=== PATIENT | male | born 1975 | race Caucasian/White ===

== ENCOUNTER 2019-10-05 01:05 | Emergency (ER) | payer OTHER ==
[2019-10-05 02:37] VITALS: BP 142/93; PULSE 100; TEMP 98.4; BMI 27.6
--- NOTE | 2019-10-05 03:43 | PDOC ---
*Physical Exam - Vital Signs Last Vital Signs Temp Pulse Resp BP Pulse Ox 98.4 F 100 H 18 142/93 97 10/05/19 01:05 10/05/19 01:05 10/05/19 01:05 10/05/19 01:05 10/05/19 01:05 Medical Decision Making - Medical Decision Making 10/05/19 03:43Patient seen by the advanced practice provider under my direct supervision. Ancillary testing reviewed as necessary. I agree with plan as outlined by the advanced practice provider. . Discharge - Discharge Information Problems reviewed: Yes Clinical Impression/Diagnosis: Folliculitis Condition: Fair Disposition: HOME - Additional Discharge Information Prescriptions: Mupirocin Ointment [Bactroban] 1 applic TP BID #1 tube - Follow up/Referral - Patient Discharge Instructions Additional Instructions: Apply warm compress to the area 4-5 times daily. Apply Bactroban to the area it is very important that you follow-up with your primary doctor in 2 days for wound check. Return to the emergency room if the wound is spreading over, streaking or worsening symptoms - Post Discharge Activity Work/Back to School Note: Back to Work
--- NOTE | 2019-10-05 03:48 | PDOC ---
History of Present Illness - General Chief Complaint: Rash Stated Complaint: RASH Time Seen by Provider: 10/05/19 03:15 History Source: Patient - History of Present Illness Initial Comments: 10/05/19 03:51 43 year old male with history of IDDM and substance abuse c/o of redness to right posterior ear erythema x 3 month. " need you to stick a needle in it." denies fever /chills. Patient with slurred speech and sleepy, . denies drug use. patient reports that he was seen by PCP for this and was referred to dermatology Past History - Past Medical History Allergies/Adverse Reactions: Allergies Allergy/AdvReac Type Severity Reaction Status Date / Time No Known Allergies Allergy Verified 10/05/19 02:37 Home Medications: Ambulatory Orders Aspirin [ASA -] 81 mg PO DAILY 07/11/15 Insulin (Novolog 70/30) [Novolog Mix 70/30 Vial] 0 ml SQ BID 07/11/15 Insulin Glargine,Hum.rec.anlog [Lantus (nf)] 40 units SQ AM 07/11/15 Lisinopril [Prinivil -] 10 mg PO DAILY 07/11/15 Mupirocin Ointment [Bactroban] 1 applic TP BID #1 tube 10/05/19 Asthma: Yes Diabetes: Yes (INSULIN DEPENDENT) HTN: Yes - Immunization History Immunization Up to Date: Yes - Psycho Social/Smoking Cessation Hx Smoking Status: No Smoking History: Current some day smoker Have you smoked in the past 12 months: Yes Number of Cigarettes Smoked Daily: 10 Information on smoking cessation initiated: No Hx Alcohol Use: No Drug/Substance Use Hx: No Substance Use Type: None Review of Systems - Review of Systems Able to Perform ROS?: Yes Is the patient limited Danish proficient: No Integumentary: Yes: Erythema *Physical Exam - Vital Signs Last Vital Signs Temp Pulse Resp BP Pulse Ox 98.4 F 100 H 18 142/93 97 10/05/19 01:05 10/05/19 01:05 10/05/19 01:05 10/05/19 01:05 10/05/19 01:05 - Physical Exam General Appearance: Yes: Appropriately Dressed HEENT: positive: Other (right posterior ear bead sized redness no fluctuant mass , mild erythema no streaking) ED Progress Note - Progress Note Progress Note: 10/05/19 03:56 A: folliculitis? P: warm compress bactroban follow up in 2 day for a wound check with pcp Discharge - Discharge Information Problems reviewed: Yes Clinical Impression/Diagnosis: Folliculitis Condition: Fair Disposition: HOME - Additional Discharge Information Prescriptions: Mupirocin Ointment [Bactroban] 1 applic TP BID #1 tube - Follow up/Referral - Patient Discharge Instructions Additional Instructions: Apply warm compress to the area 4-5 times daily. Apply Bactroban to the area it is very important that you follow-up with your primary doctor in 2 days for wound check. Return to the emergency room if the wound is spreading over, streaking or worsening symptoms - Post Discharge Activity Work/Back to School Note: Back to Work
== END 2019-10-05 04:53 | disposition home or self-care (01) ==
LOC: JER 01:05
DX: L73.8 Other specified follicular disorders (principal); I10 Essential (primary) hypertension; E10.9 Type 1 diabetes mellitus without complications; Z79.4 Long term (current) use of insulin; Z87.09 Personal history of other diseases of the respiratory system; F17.210 Nicotine dependence, cigarettes, uncomplicated
CPT/HCPCS: 99282-25

== ENCOUNTER 2021-04-29 15:14 | Inpatient (IN) | payer OTHER ==
[2021-04-29] MEDS ORDERED: SODIUM CHLORIDE 1,000 ML IV STA ×3 (15:36→17:45)
[2021-04-29] MEDS ORDERED: ONDANSETRON 4 MG/2 ML VIAL IVPUSH ONE (15:42)
[2021-04-29] MEDS ORDERED: PANTOPRAZOLE SODIUM 40 MG VIAL IVPUSH ONE (15:43)
[2021-04-29] MEDS ORDERED: PANTOPRAZOLE SODIUM 40 MG VIAL ONE (16:11)
[2021-04-29] MEDS ORDERED: ONDANSETRON 4 MG/2 ML VIAL ONE (16:11)
[2021-04-29 16:26] LABS: VENOUS O2 SATURATION 75.8 % (70-80)
[2021-04-29 16:27] LABS: MCH 23.8 pg (25.7-33.7); MCHC 31.2 g/dl (32.0-35.9); MEAN CELL VOLUME 76.2 fl (80-96); MEAN PLT VOLUME 7.7 fl (7.5-11.1); PLATELET COUNT 394 10^3/uL (134-434); RBC 5.91 M/mm3 (4.00-5.60); RDW 16.1 % (11.9-15.9); WHITE BLOOD COUNT 20.9 K/mm3 (4.0-10.0)
[2021-04-29 16:33] LABS: VENOUS PH 7.025 (7.310-7.410)
[2021-04-29 16:37] LABS: INR 0.91 (0.83-1.09)
[2021-04-29 16:39] LABS: ACTIVATED PTT 24.2 SECONDS (25.2-36.5)
[2021-04-29 16:45] LABS: CHLORIDE 83 mmol/L (98-107); SODIUM 125 mmol/L (136-145)
[2021-04-29] MEDS ORDERED: INSULIN REGULAR 100 UNITS in SODIUM CHLORIDE 99 ML IVPB SCH ×2 (16:45→23:31)
[2021-04-29 16:47] LABS: CALCIUM 8.9 mg/dL (8.5-10.1)
[2021-04-29 16:48] LABS: ALBUMIN 4.2 g/dl (3.4-5.0); BLOOD UREA NITROGEN 43.7 mg/dL (7-18); CO2 5 mmol/L (21-32)
[2021-04-29 16:51] LABS: CREATININE 2.6 mg/dL (0.55-1.3); SGOT/AST 21 U/L (15-37); SGPT/ALT 53 U/L (13-61)
[2021-04-29 16:52] LABS: TOT PROT 8.3 g/dl (6.4-8.2)
[2021-04-29 16:54] LABS: ALK PHOS 138 U/L (45-117)
[2021-04-29] MEDS ORDERED: PIPERACILLIN/TAZOB 3.375 GM 3.375 GM in DEXTROSE 5%-WATER - 50 ML IVPB ONE (17:02)
[2021-04-29] MEDS ORDERED: VANCOMYCIN 1 GM in D5W (PRE-DOCKED) 1,000 MG/250 ML IVPB ONE (17:02)
[2021-04-29 17:05] LABS: ANION GAP 37 MMOL/L (8-16); GLUCOSE,RANDOM 708 mg/dL (74-106)
[2021-04-29 17:17] LABS: ANISOCYTOSIS 0; HELMET CELLS 0; HOWELL-JOLLY BODIES 0; MACROCYTOSIS 0; OVALOCYTE 0; PLATELET ESTIMATE NORMAL; ROULEAU 0; SICKELED CELLS 0; TARGET CELLS 0; TEAR DROP CELLS 0; TOXIC GRANULATION 0
[2021-04-29] MEDS ORDERED: VANCOMYCIN 1 GRAM (PRE-DOCKED) 1,000 MG/250 ML BAG IVPB ONE (17:26)
[2021-04-29] MEDS ORDERED: PIPERACILLIN/TAZOB 3.375 GM 3.375 GM/50 ML BAG IVPB ONE (17:26)
[2021-04-29] MEDS ORDERED: TRIMETHOBENZAMIDE HCL 200MG/2ML INJ IM PRN (17:49)
[2021-04-29] MEDS ORDERED: ACETAMINOPHEN 1000 MG/100 ML VIAL (NON FORMULARY) IVPB PRN (17:49)
[2021-04-29] MEDS ORDERED: SODIUM BICARBONATE 8.4% 50 MEQ/50 ML DISP.SYRIN IVPUSH ONE (17:50)
[2021-04-29 17:53] LABS: EPI CELLS 1 /uL (0-25.1); HYALINE CASTS 1 /uL (0-3.1); URINE APPEARANCE CLEAR; URINE BACTERIA 1 /uL (0-1359); URINE BILIRUBIN NEGATIVE (NEGATIVE); URINE COLOR YELLOW; URINE GLUCOSE (UA) 3+ (NEGATIVE); URINE KETONE 4+ (NEGATIVE); URINE LEUK ESTERASE NEGATIVE (NEGATIVE); URINE NITRITE NEGATIVE (NEGATIVE); URINE PROTEIN 1+ (NEGATIVE); URINE RBC 6 /uL (0-23.9); URINE UROBILINOGEN 0.2 mg/dL (0.2-1.0); URINE WBC 1 /uL (0-25.8)
[2021-04-29] MEDS: HEPARIN NA (PORCINE) 5,000 UNITS/ML 1ML VIAL SQ SCH ×2 (18:18→21:41)
[2021-04-29] MEDS ORDERED: SODIUM BICARBONATE 8.4% - 50 ML ONE (18:18)
[2021-04-29] MEDS ORDERED: HEPARIN NA (PORCINE) 5,000 UNITS/ML 1ML VIAL ONE (18:18)
[2021-04-29] MEDS ORDERED: ALBUTEROL SO4 0.083% IH SOL 2.5 MG/3 ML VIAL.NEB. NEB PRN (19:55)
[2021-04-29 19:57] LABS: CHLORIDE 86 mmol/L (98-107); SODIUM 126 mmol/L (136-145)
[2021-04-29 20:00] LABS: ANION GAP 33 MMOL/L (8-16); CALCIUM 8.3 mg/dL (8.5-10.1); CO2 8 mmol/L (21-32); MAGNESIUM 2.4 mg/dL (1.8-2.4)
[2021-04-29 20:01] LABS: BLOOD UREA NITROGEN 41.7 mg/dL (7-18)
[2021-04-29 20:04] LABS: CREATININE 2.3 mg/dL (0.55-1.3); PHOSPHOROUS 6.6 mg/dL (2.5-4.9)
[2021-04-29 20:06] LABS: COCAINE, UR NEGATIVE (NEGATIVE); METHADONE, UR NEGATIVE (NEGATIVE); OPIATES, URI NEGATIVE (NEGATIVE); URINE BARBITURATES NEGATIVE (NEGATIVE)
[2021-04-29] MEDS ORDERED: SODIUM CHLORIDE 0.9%/KCL 20 MEQ/1,000 ML INFUS.BAG IV SCH ×2 (20:15→20:22)
[2021-04-29 20:21] LABS: PHENCYCLIDINE,URINE POSITIVE (NEGATIVE); URINE AMPHETAMINES NEGATIVE (NEGATIVE); URINE BENZODIAZEPINES NEGATIVE (NEGATIVE)
[2021-04-29 20:21] LABS: GLUCOSE,RANDOM 555 mg/dL (74-106); LACTIC ACID 4.5 mmol/L (0.4-2.0)
[2021-04-29] MEDS ORDERED: SODIUM CHLORIDE IV SCH (21:22)
[2021-04-29] MEDS ORDERED: INFUS IV SCH (21:22)
[2021-04-29] MEDS ORDERED: POTASSIUM CHLORIDE IV SCH (21:22)
[2021-04-29] MEDS: CHLORHEXIDINE GLUCONATE 4% CLEANSER FOR DECOLONIZATION TP SCH (21:42)
[2021-04-29 21:57] VITALS: BMI 24.3
[2021-04-29 22:40] LABS: VENOUS BASE EXCESS -9.3 mmol/L (-2-2); VENOUS O2 SATURATION 62.2 % (70-80); VENOUS PCO2 30.4 mmHg (38-52); VENOUS PH 7.322 (7.310-7.410)
[2021-04-29] MEDS: MUPIROCIN 2% TOPICAL OINTMENT FOR DECOLONIZATION NS SCH (22:41)
[2021-04-29 23:27] LABS: BLOOD UREA NITROGEN 35.9 mg/dL (7-18); CALCIUM 7.9 mg/dL (8.5-10.1)
[2021-04-29 23:28] LABS: CREATININE 1.9 mg/dL (0.55-1.3)
[2021-04-29] MEDS ORDERED: D5-NS + 20 MEQ KCL - 20 MEQ/1,000 ML INFUS.BAG IV SCH (23:30)
[2021-04-30 01:43] LABS: CALCIUM 7.6 mg/dL (8.5-10.1)
[2021-04-30 01:44] LABS: BLOOD UREA NITROGEN 31.4 mg/dL (7-18)
[2021-04-30 01:47] LABS: CREATININE 1.7 mg/dL (0.55-1.3)
[2021-04-30] MEDS ORDERED: D5-NS + 20 MEQ KCL - 20 MEQ/1,000 ML INFUS.BAG IV SCH (03:58)
[2021-04-30] MEDS ORDERED: D5-1/2NS+20 MEQ KCL - 20 MEQ/1,000 ML INFUS.BAG IV SCH (04:45)
[2021-04-30] MEDS ORDERED: FAMOTIDINE 20 MG TABLET PO ONE (05:27)
[2021-04-30] MEDS: HEPARIN NA (PORCINE) 5,000 UNITS/ML 1ML VIAL SQ SCH ×3 (06:00→21:43)
[2021-04-30] MEDS ORDERED: INSULIN REGULAR 100 UNITS in SODIUM CHLORIDE 99 ML IVPB SCH (06:05)
[2021-04-30 06:15] LABS: CALCIUM 8.2 mg/dL (8.5-10.1)
[2021-04-30 06:16] LABS: BLOOD UREA NITROGEN 25.3 mg/dL (7-18)
[2021-04-30 06:19] LABS: CREATININE 1.8 mg/dL (0.55-1.3)
[2021-04-30] MEDS ORDERED: FAMOTIDINE 20 MG/50 ML IVPB 20 MG/50 ML MG IVPB ONE (09:15)
[2021-04-30 11:30] LABS: BASO % 0.4 % (0-2.0); HEMATOCRIT 38.2 % (35.4-49); HEMOGLOBIN 12.5 GM/dL (11.7-16.9); MCHC 32.8 g/dl (32.0-35.9); MEAN CELL VOLUME 73.4 fl (80-96); MONO % 7.9 % (3.8-10.2); NEUT % 82.7 % (42.8-82.8); PLATELET COUNT 254 10^3/uL (134-434); RDW 15.7 % (11.9-15.9); WHITE BLOOD COUNT 13.7 K/mm3 (4.0-10.0)
[2021-04-30] MEDS: D5-1/2NS+20 MEQ KCL - 20 MEQ/1,000 ML INFUS.BAG IV SCH (11:30)
[2021-04-30 11:48] LABS: MAGNESIUM 2.2 mg/dL (1.8-2.4)
[2021-04-30 11:52] LABS: IRON SERUM 146 ug/dL (50-175); PHOSPHOROUS 1.4 mg/dL (2.5-4.9)
[2021-04-30] MEDS: INSULIN (LEVEMIR) 100 UNITS/ML UNITS SQ SCH ×2 (11:58→21:43)
[2021-04-30] MEDS: MUPIROCIN 2% TOPICAL OINTMENT FOR DECOLONIZATION NS SCH ×2 (11:58→21:12)
[2021-04-30] MEDS: INSULIN SLIDING SCALE (NOVOLOG) 1 VIAL SQ SCH ×2 (11:59→17:45)
[2021-04-30 13:29] LABS: ANION GAP QNS MMOL/L (8-16); BLOOD UREA NITROGEN QNS mg/dL (7-18); CALCIUM QNS mg/dL (8.5-10.1); CHLORIDE QNS mmol/L (98-107); CO2 QNS mmol/L (21-32); CREATININE QNS mg/dL (0.55-1.3); GLUCOSE,RANDOM QNS mg/dL (74-106); SODIUM QNS mmol/L (136-145); TOTAL IRON BINDING CAPACITY QNS ug/dL (250-450)
[2021-04-30 13:30] LABS: CHOLESTEROL QNS mg/dL (50-200); HDL CHOLESTEROL QNS mg/dL (40-60); LDL CHOLESTEROL (ONLY SJRH) QNS mg/dL (5-100); TRIGLYCERIDES QNS mg/dL (0-150)
[2021-04-30] MEDS ORDERED: CALCIUM GLUCONATE 10% - 1,000 MG/10 ML VIAL IVPUSH ONE (15:00)
[2021-04-30] MEDS ORDERED: SODIUM PHOSPHATE - 30 MM in DEXTROSE 5%-WATER - 500 ML IVPB ONE (16:00)
[2021-04-30 18:57] LABS: BLOOD UREA NITROGEN 15.6 mg/dL (7-18); CALCIUM 8.2 mg/dL (8.5-10.1)
[2021-04-30 19:00] LABS: CREATININE 1.2 mg/dL (0.55-1.3)
[2021-04-30] MEDS ORDERED: PT OWN MED DRAWER 7, Y5N ONE (20:58)
[2021-04-30] MEDS: GABAPENTIN 300 MG CAPSULE PO SCH (21:42)
[2021-04-30] MEDS: MIRTAZAPINE 15 MG TABLET (FP) PO SCH (21:42)
[2021-04-30] MEDS: CHLORHEXIDINE GLUCONATE 4% CLEANSER FOR DECOLONIZATION TP SCH (21:43)
[2021-05-01] MEDS ORDERED: DEXTROSE 50%-WATER 25 GM/50 ML DISP.SYRIN ONE (05:55)
[2021-05-01] MEDS: GABAPENTIN 300 MG CAPSULE PO SCH ×3 (06:11→21:01)
[2021-05-01] MEDS: HEPARIN NA (PORCINE) 5,000 UNITS/ML 1ML VIAL SQ SCH ×3 (06:11→21:00)
[2021-05-01] MEDS: INSULIN SLIDING SCALE (NOVOLOG) 1 VIAL SQ SCH ×3 (06:12→17:30)
[2021-05-01] MEDS: INSULIN (LEVEMIR) 100 UNITS/ML UNITS SQ SCH (06:12)
[2021-05-01] MEDS ORDERED: DEXTROSE 50%-WATER - 25 GM/50 ML VIAL IVPUSH ONE (06:35)
[2021-05-01 07:36] LABS: BASO % 0.5 % (0-2.0); EOS % 0.1 % (0-4.5); HEMATOCRIT 36.1 % (35.4-49); LYMPH % 17.3 % (8-40); MCHC 33.3 g/dl (32.0-35.9); MEAN CELL VOLUME 72.1 fl (80-96); MEAN PLT VOLUME 7.3 fl (7.5-11.1); MONO % 7.8 % (3.8-10.2); NEUT % 74.3 % (42.8-82.8); PLATELET COUNT 226 10^3/uL (134-434); RBC 5.01 M/mm3 (4.00-5.60); RDW 15.6 % (11.9-15.9); WHITE BLOOD COUNT 8.8 K/mm3 (4.0-10.0)
[2021-05-01 07:44] LABS: CHLORIDE 108 mmol/L (98-107); SODIUM 143 mmol/L (136-145)
[2021-05-01 07:47] LABS: CALCIUM 8.4 mg/dL (8.5-10.1)
[2021-05-01 07:48] LABS: ANION GAP 8 MMOL/L (8-16); BLOOD UREA NITROGEN 10.9 mg/dL (7-18); CO2 28 mmol/L (21-32); MAGNESIUM 2.2 mg/dL (1.8-2.4)
[2021-05-01 07:51] LABS: GLUCOSE,RANDOM 24 mg/dL (74-106)
[2021-05-01] MEDS ORDERED: POTASSIUM CHLORIDE ORAL LIQUID 20 MEQ/15 ML PO ONE (08:41)
[2021-05-01] MEDS ORDERED: NAPH,MB-DB/K PH,MBDB POWDER PACKET PO ONE (09:30)
[2021-05-01] MEDS ORDERED: POTASSIUM PHOSPHATE 30 MM in DEXTROSE 5%-WATER - 500 ML IVPB ONE (10:00)
[2021-05-01] MEDS: LOSARTAN POTASSIUM 50 MG TABLET PO SCH (10:25)
[2021-05-01] MEDS: QUEtiapine FUMARATE 100 MG TABLET (FP) PO SCH (10:25)
[2021-05-01] MEDS: MUPIROCIN 2% TOPICAL OINTMENT FOR DECOLONIZATION NS SCH ×2 (10:44→21:01)
[2021-05-01] MEDS: D5-1/2NS+20 MEQ KCL - 20 MEQ/1,000 ML INFUS.BAG IV SCH (11:54)
[2021-05-01] MEDS: LABETALOL HCL 5 MG/1 ML (100MG/20 ML VIAL) IVPUSH PRN (18:49)
[2021-05-01] MEDS: PANTOPRAZOLE 40 MG TABLET PO SCH (18:49)
[2021-05-01] MEDS ORDERED: INSULIN (NOVOLOG) ASPART 100 UNITS/ML 10ML VIAL SQ ONE (20:29)
[2021-05-01 20:42] LABS: BLOOD UREA NITROGEN 11.4 mg/dL (7-18); CALCIUM 9.5 mg/dL (8.5-10.1)
[2021-05-01] MEDS: CHLORHEXIDINE GLUCONATE 4% CLEANSER FOR DECOLONIZATION TP SCH (21:01)
[2021-05-01] MEDS: MIRTAZAPINE 15 MG TABLET (FP) PO SCH (21:01)
[2021-05-02] MEDS ORDERED: MAG HYDROX/AL HYDROX/SIMETH -MYLANTA- ORAL SUSPENSION PO SCH
[2021-05-02] MEDS ORDERED: INSULIN (LEVEMIR) 100 UNITS/ML UNITS SQ ONE (00:14)
[2021-05-02] MEDS: MAG HYDROX/AL HYDROX/SIMETH 30 ML UNIT-DOSE CUP PO SCH ×4 (00:22→21:38)
[2021-05-02] MEDS: INSULIN SLIDING SCALE (NOVOLOG) 1 VIAL SQ SCH ×4 (03:38→18:05)
[2021-05-02] MEDS: INSULIN (LEVEMIR) 100 UNITS/ML UNITS SQ SCH ×2 (04:16→06:33)
[2021-05-02] MEDS: LABETALOL HCL 5 MG/1 ML (100MG/20 ML VIAL) IVPUSH PRN ×2 (04:36→21:47)
[2021-05-02] MEDS: HEPARIN NA (PORCINE) 5,000 UNITS/ML 1ML VIAL SQ SCH ×3 (06:33→21:46)
[2021-05-02] MEDS: GABAPENTIN 300 MG CAPSULE PO SCH ×3 (06:33→21:46)
[2021-05-02] MEDS ORDERED: hydrALAZINE HCL 20 MG/ML VIAL IVPUSH PRN (06:57)
[2021-05-02 07:07] LABS: BASO % 0.5 % (0-2.0); EOS % 0.1 % (0-4.5); HEMOGLOBIN 11.1 GM/dL (11.7-16.9); LYMPH % 28.4 % (8-40); MCH 23.9 pg (25.7-33.7); MCHC 32.7 g/dl (32.0-35.9); MEAN CELL VOLUME 73.1 fl (80-96); MEAN PLT VOLUME 7.5 fl (7.5-11.1); MONO % 6.8 % (3.8-10.2); NEUT % 64.2 % (42.8-82.8); PLATELET COUNT 197 10^3/uL (134-434); RBC 4.65 M/mm3 (4.00-5.60); RDW 15.8 % (11.9-15.9); WHITE BLOOD COUNT 5.9 K/mm3 (4.0-10.0)
[2021-05-02 07:24] LABS: BLOOD UREA NITROGEN 14.7 mg/dL (7-18); CALCIUM 8.7 mg/dL (8.5-10.1)
[2021-05-02 07:27] LABS: CREATININE 1.2 mg/dL (0.55-1.3)
[2021-05-02 07:29] LABS: BILIRUBIN,TOTAL 0.5 mg/dL (0.2-1)
[2021-05-02 07:46] LABS: ALBUMIN 2.9 g/dl (3.4-5.0); TOT PROT 5.9 g/dl (6.4-8.2)
[2021-05-02] MEDS: hydrALAZINE HCL 25 MG TABLET (FP) PO SCH ×2 (10:00→21:46)
[2021-05-02] MEDS ORDERED: PT OWN MED DRAWER 7, Y5N ONE (10:19)
[2021-05-02] MEDS: LABETALOL HCL 100 MG TABLET (FP) PO SCH (11:12)
[2021-05-02] MEDS: LOSARTAN POTASSIUM 50 MG TABLET PO SCH (11:12)
[2021-05-02] MEDS: MUPIROCIN 2% TOPICAL OINTMENT FOR DECOLONIZATION NS SCH ×2 (11:12→21:46)
[2021-05-02] MEDS: PANTOPRAZOLE 40 MG TABLET PO SCH (11:13)
[2021-05-02] MEDS: QUEtiapine FUMARATE 100 MG TABLET (FP) PO SCH (11:13)
[2021-05-02] MEDS: CHLORHEXIDINE GLUCONATE 4% CLEANSER FOR DECOLONIZATION TP SCH (21:46)
[2021-05-02] MEDS: MIRTAZAPINE 15 MG TABLET (FP) PO SCH (21:46)
[2021-05-03] MEDS: LABETALOL HCL 100 MG TABLET (FP) PO SCH ×2 (01:31→11:04)
[2021-05-03] MEDS: MAG HYDROX/AL HYDROX/SIMETH 30 ML UNIT-DOSE CUP PO SCH ×4 (01:33→17:49)
[2021-05-03] MEDS: HEPARIN NA (PORCINE) 5,000 UNITS/ML 1ML VIAL SQ SCH ×2 (05:43→13:57)
[2021-05-03] MEDS: GABAPENTIN 300 MG CAPSULE PO SCH ×2 (05:43→13:57)
[2021-05-03] MEDS: INSULIN SLIDING SCALE (NOVOLOG) 1 VIAL SQ SCH ×3 (06:02→16:22)
[2021-05-03] MEDS: INSULIN (LEVEMIR) 100 UNITS/ML UNITS SQ SCH (06:02)
[2021-05-03] MEDS ORDERED: MAG HYDROX/AL HYDROX/SIMETH 30 ML UNIT-DOSE CUP PO ONE (09:13)
[2021-05-03] MEDS ORDERED: FAMOTIDINE 20 MG TABLET PO ONE (09:13)
[2021-05-03] MEDS: QUEtiapine FUMARATE 100 MG TABLET (FP) PO SCH (11:00)
[2021-05-03] MEDS: hydrALAZINE HCL 25 MG TABLET (FP) PO SCH (11:00)
[2021-05-03] MEDS: PANTOPRAZOLE 40 MG TABLET PO SCH (11:00)
[2021-05-03] MEDS: LOSARTAN POTASSIUM 50 MG TABLET PO SCH (11:04)
[2021-05-03 11:31] LABS: ALBUMIN 2.9 g/dl (3.4-5.0); BLOOD UREA NITROGEN 19.4 mg/dL (7-18); CALCIUM 8.6 mg/dL (8.5-10.1)
[2021-05-03 11:32] LABS: MAGNESIUM 2.3 mg/dL (1.8-2.4)
[2021-05-03 11:34] LABS: CREATININE 1.2 mg/dL (0.55-1.3)
[2021-05-03 11:36] LABS: BILIRUBIN,TOTAL 0.3 mg/dL (0.2-1)
[2021-05-03 12:21] VITALS: BP 131/90; PULSE 94
[2021-05-03] MEDS: MUPIROCIN 2% TOPICAL OINTMENT FOR DECOLONIZATION NS SCH (12:37)
[2021-05-03 17:50] VITALS: TEMP 99.5
== END 2021-05-03 18:55 | disposition home or self-care (01) | DRG 420 ==
LOC: JER 15:14 → JERBED 17:54 → JICU 21:43
PROVIDERS: ADMIT Internal Medicine; ATTEND Internal Medicine
DX: E10.10 Type 1 diabetes mellitus with ketoacidosis without coma (principal); I10 Essential (primary) hypertension; E03.9 Hypothyroidism, unspecified; N17.9 Acute kidney failure, unspecified; E87.5 Hyperkalemia; D72.829 Elevated white blood cell count, unspecified; R10.13 Epigastric pain; R11.2 Nausea with vomiting, unspecified; R80.9 Proteinuria, unspecified; L73.9 Follicular disorder, unspecified; E87.1 Hypo-osmolality and hyponatremia; E10.65 Type 1 diabetes mellitus with hyperglycemia; R35.0 Frequency of micturition; Z79.4 Long term (current) use of insulin
CPT/HCPCS: 36415; 71045-TC-FY; 80048; 80053; 80061; 80307; 81003; 82010; 82436; 82550; 82570; 82803; 82962; 83540; 83605; 83690; 83735; 83930; 84100; 84133; 84300; 84443; 84484; 85025; 85610; 85730; 86850; 86900; 86901; 87040; 87086; 93005; 93010; 93306-TC; 97116-GP; 97161-GP; 99291; C9803; J1644; U0003; U0005

== ENCOUNTER 2021-07-12 11:58 | Inpatient (IN) | payer OTHER ==
[2021-07-12] MEDS ORDERED: SODIUM CHLORIDE 0.9% 500 ML INFUS.BAG IV ONE ×2 (12:43→13:20)
[2021-07-12 12:45] LABS: VENOUS BASE EXCESS -14.4 mmol/L (-2-2); VENOUS O2 SATURATION 60.2 % (70-80); VENOUS PCO2 35.7 mmHg (38-52)
[2021-07-12 12:47] LABS: BASO % 0.7 % (0-2.0); EOS % 0.9 % (0-4.5); HEMATOCRIT 42.8 % (35.4-49); HEMOGLOBIN 13.5 GM/dL (11.7-16.9); LYMPH % 15.9 % (8-40); MCH 23.7 pg (25.7-33.7); MCHC 31.6 g/dl (32.0-35.9); MEAN CELL VOLUME 74.9 fl (80-96); MEAN PLT VOLUME 8.3 fl (7.5-11.1); MONO % 6.7 % (3.8-10.2); NEUT % 75.8 % (42.8-82.8); PLATELET COUNT 295 10^3/uL (134-434); RBC 5.72 M/mm3 (4.00-5.60); RDW 14.9 % (11.9-15.9); VENOUS PH 7.179 (7.310-7.410); WHITE BLOOD COUNT 10.9 K/mm3 (4.0-10.0)
[2021-07-12 12:48] LABS: URINE APPEARANCE CLEAR; URINE BILIRUBIN NEGATIVE (NEGATIVE); URINE COLOR YELLOW; URINE GLUCOSE (UA) 3+ (NEGATIVE); URINE KETONE 4+ (NEGATIVE); URINE LEUK ESTERASE NEGATIVE (NEGATIVE); URINE NITRITE NEGATIVE (NEGATIVE); URINE PROTEIN NEGATIVE (NEGATIVE); URINE UROBILINOGEN 0.2 mg/dL (0.2-1.0)
[2021-07-12] MEDS ORDERED: ONDANSETRON 4 MG/2 ML VIAL IVPB ONE (13:00)
[2021-07-12 13:03] LABS: URINE BARBITURATES NEGATIVE (NEGATIVE)
[2021-07-12 13:04] LABS: COCAINE, UR NEGATIVE (NEGATIVE); METHADONE, UR NEGATIVE (NEGATIVE); OPIATES, URI NEGATIVE (NEGATIVE); PHENCYCLIDINE,URINE POSITIVE (NEGATIVE); URINE AMPHETAMINES NEGATIVE (NEGATIVE); URINE BENZODIAZEPINES NEGATIVE (NEGATIVE)
[2021-07-12] MEDS ORDERED: ONDANSETRON 4 MG/2 ML VIAL ONE ×2 (13:06→14:37)
[2021-07-12 13:09] LABS: CHLORIDE 91 mmol/L (98-107); SODIUM 130 mmol/L (136-145)
[2021-07-12 13:11] LABS: ALBUMIN 4.3 g/dl (3.4-5.0); ANION GAP 25 MMOL/L (8-16); CALCIUM 10.8 mg/dL (8.5-10.1); CO2 14 mmol/L (21-32)
[2021-07-12 13:12] LABS: LIPASE 99 U/L (73-393)
[2021-07-12 13:13] LABS: PHOSPHOROUS 5.2 mg/dL (2.5-4.9); SGOT/AST 15 U/L (15-37); SGPT/ALT 32 U/L (13-61)
[2021-07-12 13:15] LABS: BILIRUBIN,TOTAL 1.1 mg/dL (0.2-1); TOT PROT 8.4 g/dl (6.4-8.2)
[2021-07-12] MEDS ORDERED: INSULIN REGULAR HUMAN 100 UNITS/ML *VIAL ONE (13:15)
[2021-07-12 13:16] LABS: ALK PHOS 167 U/L (45-117); GLUCOSE,RANDOM 730 mg/dL (74-106)
[2021-07-12] MEDS ORDERED: INSULIN REGULAR HUMAN 100 UNITS/ML *VIAL IVPUSH ONE (13:22)
[2021-07-12] MEDS ORDERED: INSULIN DRIP - PLEASE ORDER UNDER SETS NR ONE (13:23)
[2021-07-12 14:21] LABS: MAGNESIUM 2.5 mg/dL (1.8-2.4)
[2021-07-12] MEDS ORDERED: LORazepam 2 MG/ML SDV VIAL IVPUSH ONE ×2 (14:23→17:21)
[2021-07-12] MEDS ORDERED: ONDANSETRON 4 MG/2 ML VIAL IVPUSH ONE (14:24)
[2021-07-12] MEDS ORDERED: LORazepam 2 MG/ML SDV VIAL ONE (14:37)
[2021-07-12] MEDS ORDERED: ENOXAPARIN NA (PORCINE) 40 MG/0.4 ML DISP.SYRIN SQ SCH (14:45)
[2021-07-12] MEDS ORDERED: INSULIN REGULAR 100 UNITS in SODIUM CHLORIDE 99 ML IVPB SCH (15:00)
[2021-07-12] MEDS ORDERED: SODIUM CHLORIDE 1,000 ML IV SCH ×2 (15:15→22:45)
[2021-07-12] MEDS ORDERED: POTASSIUM CHLORIDE 20 MEQ PREMIX IVPB 100 ML IVPB ONE (15:19)
[2021-07-12] MEDS ORDERED: ALBUTEROL SO4 HFA INHALER IH PRN (16:00)
[2021-07-12 17:48] VITALS: BMI 25.5
[2021-07-12 18:08] LABS: BLOOD UREA NITROGEN 19.7 mg/dL (7-18)
[2021-07-12 18:11] LABS: CREATININE 1.6 mg/dL (0.55-1.3)
[2021-07-12] MEDS: KCL 10 MEQ IVPB 10 MEQ/100 ML INFUS.BAG IVPB SCH ×2 (18:26→21:20)
[2021-07-12] MEDS ORDERED: DEXTROSE 5%-NORMAL SALINE 1,000 ML IV SCH (18:30)
[2021-07-12] MEDS: MUPIROCIN 2% TOPICAL OINTMENT FOR DECOLONIZATION NS SCH (21:20)
[2021-07-12] MEDS: HEPARIN NA (PORCINE) 5,000 UNITS/ML 1ML VIAL SQ SCH (21:20)
[2021-07-12] MEDS: CHLORHEXIDINE GLUCONATE 4% CLEANSER FOR DECOLONIZATION TP SCH (21:20)
[2021-07-12] MEDS: BUDESONIDE/FORMETEROL FUMARATE 160/4.5 mcg INHALER IH SCH (21:21)
[2021-07-12 21:48] LABS: CALCIUM 9.3 mg/dL (8.5-10.1)
[2021-07-12 21:49] LABS: BLOOD UREA NITROGEN 16.5 mg/dL (7-18)
[2021-07-12 21:52] LABS: CREATININE 1.5 mg/dL (0.55-1.3)
[2021-07-12] MEDS ORDERED: INSULIN (LEVEMIR) 100 UNITS/ML UNITS SQ ONE (22:46)
[2021-07-13] MEDS ORDERED: LORazepam 2 MG/ML SDV VIAL ONE (00:09)
[2021-07-13] MEDS: INSULIN SLIDING SCALE (NOVOLOG) 1 VIAL SQ SCH ×5 (00:11→21:15)
[2021-07-13] MEDS: HEPARIN NA (PORCINE) 5,000 UNITS/ML 1ML VIAL SQ SCH ×3 (06:18→21:11)
[2021-07-13 07:09] LABS: BASO % 1.1 % (0-2.0); EOS % 2.5 % (0-4.5); HEMATOCRIT 36.6 % (35.4-49); HEMOGLOBIN 12.2 GM/dL (11.7-16.9); LYMPH % 35.6 % (8-40); MCHC 33.3 g/dl (32.0-35.9); MEAN CELL VOLUME 72.1 fl (80-96); MEAN PLT VOLUME 7.6 fl (7.5-11.1); NEUT % 52.8 % (42.8-82.8); PLATELET COUNT 257 10^3/uL (134-434); RBC 5.08 M/mm3 (4.00-5.60); RDW 14.3 % (11.9-15.9)
[2021-07-13 07:30] LABS: PHOSPHOROUS 3.2 mg/dL (2.5-4.9)
[2021-07-13 07:48] LABS: VENOUS BASE EXCESS -6.2 mmol/L (-2-2); VENOUS O2 SATURATION 98.6 % (70-80); VENOUS PCO2 46.2 mmHg (38-52); VENOUS PH 7.269 (7.310-7.410)
[2021-07-13 08:21] LABS: BLOOD UREA NITROGEN 13.7 mg/dL (7-18)
[2021-07-13 08:26] LABS: CREATININE 1.3 mg/dL (0.55-1.3)
[2021-07-13] MEDS ORDERED: PT OWN MED DRAWER 7, Y5N ONE (10:49)
[2021-07-13] MEDS: PANTOPRAZOLE 40 MG TABLET PO SCH (11:12)
[2021-07-13] MEDS: BUDESONIDE/FORMETEROL FUMARATE 160/4.5 mcg INHALER IH SCH ×2 (11:13→21:12)
[2021-07-13] MEDS: INSULIN (LEVEMIR) 100 UNITS/ML UNITS SQ SCH (11:13)
[2021-07-13] MEDS: MUPIROCIN 2% TOPICAL OINTMENT FOR DECOLONIZATION NS SCH ×2 (11:26→21:11)
[2021-07-13] MEDS: CHLORHEXIDINE GLUCONATE 4% CLEANSER FOR DECOLONIZATION TP SCH (21:12)
[2021-07-14] MEDS: HEPARIN NA (PORCINE) 5,000 UNITS/ML 1ML VIAL SQ SCH ×4 (06:26→21:41)
[2021-07-14] MEDS: INSULIN SLIDING SCALE (NOVOLOG) 1 VIAL SQ SCH ×4 (06:26→21:45)
[2021-07-14] MEDS: PANTOPRAZOLE 40 MG TABLET PO SCH (09:41)
[2021-07-14] MEDS: INSULIN (LEVEMIR) 100 UNITS/ML UNITS SQ SCH (09:44)
[2021-07-14] MEDS: MUPIROCIN 2% TOPICAL OINTMENT FOR DECOLONIZATION NS SCH ×3 (09:46→21:41)
[2021-07-14] MEDS: BUDESONIDE/FORMETEROL FUMARATE 160/4.5 mcg INHALER IH SCH ×2 (09:46→21:46)
[2021-07-14] MEDS ORDERED: LORazepam 2 MG/ML SDV VIAL IVPUSH ONE (15:11)
[2021-07-14] MEDS ORDERED: HALOPERIDOL LACTATE 5 MG/ML IM ONE (15:11)
[2021-07-14] MEDS ORDERED: HALOPERIDOL LACTATE 5 MG/ML ONE (15:15)
[2021-07-14 17:31] LABS: HEMOGLOBIN 11.5 GM/dL (11.7-16.9); MCH 23.8 pg (25.7-33.7); MEAN CELL VOLUME 72.2 fl (80-96); MEAN PLT VOLUME 7.4 fl (7.5-11.1); PLATELET COUNT 212 10^3/uL (134-434); RBC 4.84 M/mm3 (4.00-5.60); RDW 13.8 % (11.9-15.9); WHITE BLOOD COUNT 5.9 K/mm3 (4.0-10.0)
[2021-07-14 17:39] LABS: INR 0.9 (0.83-1.09); PROTHROMBIN TIME (PATIENT) 10.1 SEC (9.7-13.0)
[2021-07-14 17:55] LABS: CALCIUM 8.9 mg/dL (8.5-10.1)
[2021-07-14 17:56] LABS: BLOOD UREA NITROGEN 11.8 mg/dL (7-18)
[2021-07-14 17:59] LABS: CREATININE 1.1 mg/dL (0.55-1.3)
[2021-07-14 18:00] LABS: BILIRUBIN,TOTAL 0.3 mg/dL (0.2-1)
[2021-07-14] MEDS: CHLORHEXIDINE GLUCONATE 4% CLEANSER FOR DECOLONIZATION TP SCH (21:42)
[2021-07-15] MEDS: HEPARIN NA (PORCINE) 5,000 UNITS/ML 1ML VIAL SQ SCH (05:07)
[2021-07-15] MEDS: INSULIN SLIDING SCALE (NOVOLOG) 1 VIAL SQ SCH ×2 (06:40→12:04)
[2021-07-15] MEDS: PANTOPRAZOLE 40 MG TABLET PO SCH (10:01)
[2021-07-15] MEDS: INSULIN (LEVEMIR) 100 UNITS/ML UNITS SQ SCH (10:01)
[2021-07-15] MEDS: MUPIROCIN 2% TOPICAL OINTMENT FOR DECOLONIZATION NS SCH (10:01)
[2021-07-15] MEDS: BUDESONIDE/FORMETEROL FUMARATE 160/4.5 mcg INHALER IH SCH (10:02)
[2021-07-15 10:17] VITALS: BP 136/92; PULSE 83; TEMP 98.4
== END 2021-07-15 13:26 | disposition home or self-care (01) | DRG 420 ==
LOC: JER 11:58 → JERBED 13:00 → JICU 15:56
PROVIDERS: ADMIT Family Medicine; ATTEND Family Medicine
DX: E10.10 Type 1 diabetes mellitus with ketoacidosis without coma (principal); N17.9 Acute kidney failure, unspecified; I10 Essential (primary) hypertension; K21.9 Gastro-esophageal reflux disease without esophagitis; I45.10 Unspecified right bundle-branch block; J45.909 Unspecified asthma, uncomplicated; E86.0 Dehydration; M54.9 Dorsalgia, unspecified; G92.8 Other toxic encephalopathy; T40.995A Adverse effect of other psychodysleptics [hallucinogens], initial encounter; Z91.14 Patient's other noncompliance with medication regimen
CPT/HCPCS: 36415; 70450-TC; 71045-TC-FY; 80048; 80053; 80307; 81003; 82010; 82550; 82553; 82803; 82962; 83036; 83690; 83735; 84100; 84484; 85025; 85027; 85610; 85730; 93005; 93010; 99291; C9803; J1644; U0003; U0005

== ENCOUNTER 2021-07-26 23:05 | Inpatient (IN) | payer OTHER ==
[2021-07-26] MEDS ORDERED: LACTATED RINGERS SOLUTION 1000 ML INFUS.BAG IV ONE (23:45)
[2021-07-26] MEDS ORDERED: ONDANSETRON 4 MG/2 ML VIAL IVPUSH ONE (23:58)
[2021-07-27] MEDS ORDERED: ONDANSETRON 4 MG/2 ML VIAL ONE ×2 (00:10→02:54)
[2021-07-27 01:26] LABS: HEMATOCRIT 41.9 % (35.4-49); HEMOGLOBIN 13.1 GM/dL (11.7-16.9); MCH 24.5 pg (25.7-33.7); MCHC 31.3 g/dl (32.0-35.9); MEAN CELL VOLUME 78.1 fl (80-96); MEAN PLT VOLUME 8.6 fl (7.5-11.1); PLATELET COUNT 347 10^3/uL (134-434); RBC 5.36 M/mm3 (4.00-5.60); RDW 15.4 % (11.9-15.9)
[2021-07-27 01:42] LABS: MAGNESIUM 2.7 mg/dL (1.8-2.4)
[2021-07-27 01:46] LABS: PHOSPHOROUS 7.7 mg/dL (2.5-4.9)
[2021-07-27 01:48] LABS: CHLORIDE 82 mmol/L (98-107); SODIUM 126 mmol/L (136-145)
[2021-07-27 01:50] LABS: CALCIUM 9.4 mg/dL (8.5-10.1)
[2021-07-27 01:51] LABS: CO2 7 mmol/L (21-32)
[2021-07-27 01:54] LABS: CREATININE 2.3 mg/dL (0.55-1.3); SGOT/AST 24 U/L (15-37); SGPT/ALT 36 U/L (13-61)
[2021-07-27 01:55] LABS: BILIRUBIN,TOTAL 0.9 mg/dL (0.2-1); TOT PROT 7.7 g/dl (6.4-8.2)
[2021-07-27 02:02] LABS: URINE APPEARANCE CLEAR; URINE BILIRUBIN NEGATIVE (NEGATIVE); URINE COLOR YELLOW; URINE GLUCOSE (UA) 3+ (NEGATIVE); URINE KETONE 3+ (NEGATIVE); URINE LEUK ESTERASE NEGATIVE (NEGATIVE); URINE NITRITE NEGATIVE (NEGATIVE); URINE PROTEIN NEGATIVE (NEGATIVE); URINE UROBILINOGEN 0.2 mg/dL (0.2-1.0)
[2021-07-27 02:06] LABS: VENOUS BASE EXCESS -20.2 mmol/L (-2-2); VENOUS O2 SATURATION 37.6 % (70-80); VENOUS PCO2 31.8 mmHg (38-52)
[2021-07-27 02:06] LABS: ALBUMIN 3.9 g/dl (3.4-5.0); ALK PHOS 152 U/L (45-117); ANION GAP 37 MMOL/L (8-16); BLOOD UREA NITROGEN 44.6 mg/dL (7-18); GLUCOSE,RANDOM 932 mg/dL (74-106)
[2021-07-27 02:22] LABS: VENOUS PH 7.066 (7.310-7.410)
[2021-07-27] MEDS ORDERED: INSULIN REGULAR 100 UNITS in SODIUM CHLORIDE 99 ML IVPB SCH (02:30)
[2021-07-27] MEDS ORDERED: CALCIUM GLUCONATE 10% - 1,000 MG/10 ML VIAL IVPUSH ONE ×2 (02:38→04:57)
[2021-07-27] MEDS ORDERED: ONDANSETRON 4 MG/2 ML VIAL IVPUSH ONE (02:46)
[2021-07-27] MEDS ORDERED: CALCIUM GLUCONATE 10% - 1,000 MG/10 ML VIAL ONE ×2 (02:53→05:28)
[2021-07-27 03:04] LABS: ANISOCYTOSIS 1+; MACROCYTOSIS 0; OVALOCYTE 1+; PLATELET ESTIMATE NORMAL; TEAR DROP CELLS 1+
[2021-07-27] MEDS ORDERED: LACTATED RINGERS SOLUTION 1000 ML INFUS.BAG IV ONE (03:18)
[2021-07-27 03:48] LABS: CHLORIDE 89 mmol/L (98-107)
[2021-07-27 03:51] LABS: CO2 8 mmol/L (21-32)
[2021-07-27 03:52] LABS: BLOOD UREA NITROGEN 40.2 mg/dL (7-18)
[2021-07-27 03:55] LABS: CREATININE 2.2 mg/dL (0.55-1.3)
[2021-07-27 04:45] LABS: ANION GAP 22 MMOL/L (8-16); SODIUM 119 mmol/L (136-145)
[2021-07-27 04:48] LABS: GLUCOSE,RANDOM 876 mg/dL (74-106)
[2021-07-27 05:50] LABS: CHLORIDE 82 mmol/L (98-107); SODIUM 126 mmol/L (136-145)
[2021-07-27 05:52] LABS: ANION GAP 33 MMOL/L (8-16); BLOOD UREA NITROGEN 45.1 mg/dL (7-18); CO2 11 mmol/L (21-32)
[2021-07-27 05:56] LABS: CREATININE 2.7 mg/dL (0.55-1.3)
[2021-07-27 05:59] LABS: CALCIUM 9.6 mg/dL (8.5-10.1); GLUCOSE,RANDOM 746 mg/dL (74-106)
[2021-07-27] MEDS: HEPARIN NA (PORCINE) 5,000 UNITS/ML 1ML VIAL SQ SCH ×3 (06:29→21:04)
[2021-07-27] MEDS ORDERED: LACTATED RINGERS SOLUTION 1,000 ML with POTASSIUM CHLORIDE 20 MEQ IV ONE (06:32)
[2021-07-27] MEDS ORDERED: INSULIN SLIDING SCALE (NOVOLOG) 1 VIAL SQ SCH (07:00)
[2021-07-27 08:07] LABS: HEMATOCRIT 40.6 % (35.4-49); HEMOGLOBIN 13.3 GM/dL (11.7-16.9); MCH 24.1 pg (25.7-33.7); MCHC 32.9 g/dl (32.0-35.9); MEAN CELL VOLUME 73.3 fl (80-96); PLATELET COUNT 341 10^3/uL (134-434); RBC 5.53 M/mm3 (4.00-5.60); RDW 14.5 % (11.9-15.9); WHITE BLOOD COUNT 24.5 K/mm3 (4.0-10.0)
[2021-07-27 08:08] LABS: MEAN PLT VOLUME 7.6 fl (7.5-11.1)
[2021-07-27 08:35] LABS: BLOOD UREA NITROGEN 44.5 mg/dL (7-18); CALCIUM 10.4 mg/dL (8.5-10.1)
[2021-07-27 08:37] LABS: MAGNESIUM 2.7 mg/dL (1.8-2.4)
[2021-07-27 08:38] LABS: CREATININE 2.5 mg/dL (0.55-1.3); PHOSPHOROUS 3.9 mg/dL (2.5-4.9)
[2021-07-27] MEDS ORDERED: SODIUM CHLORIDE 1,000 ML IV STA (08:51)
[2021-07-27] MEDS ORDERED: SODIUM CHLORIDE 1,000 ML IV SCH (09:00)
[2021-07-27 09:05] LABS: ANISOCYTOSIS 1+; MACROCYTOSIS 0; PLATELET ESTIMATE NORMAL
[2021-07-27] MEDS ORDERED: DEXTROSE 5%-0.45% SALINE 1,000 ML IV SCH (09:15)
[2021-07-27 09:25] LABS: ALBUMIN 4.3 g/dl (3.4-5.0)
[2021-07-27] MEDS ORDERED: DEXTROSE 5%-LACTATED RINGERS 1,000 ML IV SCH (09:30)
[2021-07-27] MEDS ORDERED: TRIMETHOBENZAMIDE HCL 300 MG CAPSULE PO ONE (09:30)
[2021-07-27] MEDS ORDERED: LACTATED RINGERS SOLUTION 1,000 ML/1,000 ML INFUS.BAG IV SCH (09:45)
[2021-07-27] MEDS ORDERED: ENOXAPARIN NA (PORCINE) 40 MG/0.4 ML DISP.SYRIN SQ SCH (10:00)
[2021-07-27] MEDS: MUPIROCIN 2% TOPICAL OINTMENT FOR DECOLONIZATION NS SCH ×2 (10:14→21:05)
[2021-07-27 11:06] LABS: URINE BARBITURATES NEGATIVE (NEGATIVE)
[2021-07-27 11:07] LABS: COCAINE, UR NEGATIVE (NEGATIVE)
[2021-07-27 11:08] LABS: METHADONE, UR NEGATIVE (NEGATIVE)
[2021-07-27 11:09] LABS: OPIATES, URI NEGATIVE (NEGATIVE); PHENCYCLIDINE,URINE POSITIVE (NEGATIVE); URINE AMPHETAMINES NEGATIVE (NEGATIVE); URINE BENZODIAZEPINES NEGATIVE (NEGATIVE)
[2021-07-27] MEDS ORDERED: INSULIN (LEVEMIR) 100 UNITS/ML UNITS SQ SCH (12:30)
[2021-07-27] MEDS: ONDANSETRON 4 MG/2 ML VIAL IVPUSH PRN ×2 (12:34→21:04)
[2021-07-27] MEDS: INSULIN SLIDING SCALE (NOVOLOG) 1 VIAL SQ SCH ×4 (12:34→21:05)
[2021-07-27 13:14] LABS: CALCIUM 9.6 mg/dL (8.5-10.1)
[2021-07-27 13:15] LABS: BLOOD UREA NITROGEN 41.1 mg/dL (7-18)
[2021-07-27 13:18] LABS: CREATININE 1.7 mg/dL (0.55-1.3)
[2021-07-27] MEDS ORDERED: LABETALOL HCL 5 MG/1 ML (100MG/20 ML VIAL) IVPUSH ONE ×2 (14:04→22:06)
[2021-07-27] MEDS: LACTATED RINGERS SOLUTION 1,000 ML/1,000 ML INFUS.BAG IV SCH (16:37)
[2021-07-27 17:02] LABS: CALCIUM 9.6 mg/dL (8.5-10.1)
[2021-07-27 17:03] LABS: BLOOD UREA NITROGEN 35.7 mg/dL (7-18)
[2021-07-27 17:06] LABS: CREATININE 1.9 mg/dL (0.55-1.3)
[2021-07-27] MEDS ORDERED: DEXTROSE 50%-WATER - 25 GM/50 ML VIAL IVPUSH ONE (17:47)
[2021-07-27] MEDS ORDERED: DEXTROSE 50%-WATER 25 GM/50 ML DISP.SYRIN ONE (17:54)
[2021-07-27] MEDS: CHLORHEXIDINE GLUCONATE 4% CLEANSER FOR DECOLONIZATION TP SCH (21:05)
[2021-07-27] MEDS ORDERED: LABETALOL HCL 100 MG TABLET (FP) PO SCH (22:00)
[2021-07-27] MEDS ORDERED: LABETALOL HCL 5 MG/1 ML (100MG/20 ML VIAL) ONE (22:09)
[2021-07-28] MEDS: HEPARIN NA (PORCINE) 5,000 UNITS/ML 1ML VIAL SQ SCH ×3 (06:23→21:49)
[2021-07-28] MEDS: INSULIN SLIDING SCALE (NOVOLOG) 1 VIAL SQ SCH ×5 (06:24→22:01)
[2021-07-28] MEDS: INSULIN (LEVEMIR) 100 UNITS/ML UNITS SQ SCH ×4 (06:24→22:03)
[2021-07-28 08:33] LABS: HEMATOCRIT 34.4 % (35.4-49); HEMOGLOBIN 11.3 GM/dL (11.7-16.9); MCH 23.8 pg (25.7-33.7); MCHC 32.8 g/dl (32.0-35.9); MEAN CELL VOLUME 72.7 fl (80-96); MEAN PLT VOLUME 7.2 fl (7.5-11.1); PLATELET COUNT 239 10^3/uL (134-434); RBC 4.73 M/mm3 (4.00-5.60); RDW 14.2 % (11.9-15.9); WHITE BLOOD COUNT 13.3 K/mm3 (4.0-10.0)
[2021-07-28 09:05] LABS: CALCIUM 8.6 mg/dL (8.5-10.1)
[2021-07-28 09:06] LABS: MAGNESIUM 2.3 mg/dL (1.8-2.4)
[2021-07-28 09:09] LABS: CREATININE 1.2 mg/dL (0.55-1.3); PHOSPHOROUS 1.6 mg/dL (2.5-4.9)
[2021-07-28] MEDS: hydrALAZINE HCL 25 MG TABLET (FP) PO SCH ×2 (09:14→21:50)
[2021-07-28] MEDS: LABETALOL HCL 100 MG TABLET (FP) PO SCH ×2 (09:14→21:49)
[2021-07-28] MEDS: LOSARTAN POTASSIUM 50 MG TABLET PO SCH (09:14)
[2021-07-28] MEDS: MUPIROCIN 2% TOPICAL OINTMENT FOR DECOLONIZATION NS SCH ×2 (09:14→21:50)
[2021-07-28] MEDS ORDERED: ACETAMINOPHEN 325 MG TABLET (FP) PO PRN (10:10)
[2021-07-28] MEDS: ONDANSETRON 4 MG/2 ML VIAL IVPUSH PRN ×2 (10:43→20:49)
[2021-07-28] MEDS: NYSTATIN 500,000 UNITS/5 ML SUSPENSION PO SCH ×3 (12:34→23:11)
[2021-07-28] MEDS: LACTATED RINGERS SOLUTION 1,000 ML/1,000 ML INFUS.BAG IV SCH (17:34)
[2021-07-28] MEDS ORDERED: PT OWN MED DRAWER 7, Y5N ONE ×2 (20:44→22:04)
[2021-07-28] MEDS: MENTHOL/PHENOL 1 EACH UD MM PRN (21:49)
[2021-07-28] MEDS: CHLORHEXIDINE GLUCONATE 4% CLEANSER FOR DECOLONIZATION TP SCH (21:50)
[2021-07-29] MEDS ORDERED: PT OWN MED DRAWER 7, Y5N ONE ×3 (02:02→09:23)
[2021-07-29] MEDS: MENTHOL/PHENOL 1 EACH UD MM PRN (02:03)
[2021-07-29] MEDS: NYSTATIN 500,000 UNITS/5 ML SUSPENSION PO SCH ×4 (06:15→23:25)
[2021-07-29] MEDS: HEPARIN NA (PORCINE) 5,000 UNITS/ML 1ML VIAL SQ SCH ×4 (06:15→21:56)
[2021-07-29] MEDS: INSULIN SLIDING SCALE (NOVOLOG) 1 VIAL SQ SCH ×5 (06:21→21:57)
[2021-07-29] MEDS: INSULIN (LEVEMIR) 100 UNITS/ML UNITS SQ SCH ×3 (06:21→21:56)
[2021-07-29] MEDS: ONDANSETRON 4 MG/2 ML VIAL IVPUSH PRN ×2 (09:17→21:07)
[2021-07-29] MEDS: hydrALAZINE HCL 25 MG TABLET (FP) PO SCH ×3 (09:25→21:56)
[2021-07-29] MEDS: LOSARTAN POTASSIUM 50 MG TABLET PO SCH (09:25)
[2021-07-29] MEDS: LABETALOL HCL 100 MG TABLET (FP) PO SCH ×3 (09:25→21:56)
[2021-07-29] MEDS: MUPIROCIN 2% TOPICAL OINTMENT FOR DECOLONIZATION NS SCH (09:26)
[2021-07-29 11:56] VITALS: BMI 25.2
[2021-07-29 12:44] LABS: BLOOD UREA NITROGEN 11.8 mg/dL (7-18)
[2021-07-29 12:48] LABS: CREATININE 0.9 mg/dL (0.55-1.3)
[2021-07-29 12:49] LABS: BILIRUBIN,TOTAL 0.5 mg/dL (0.2-1)
[2021-07-29 12:55] LABS: BASO % 0.3 % (0-2.0); EOS % 0.2 % (0-4.5); HEMATOCRIT 34.7 % (35.4-49); HEMOGLOBIN 11.5 GM/dL (11.7-16.9); LYMPH % 19.3 % (8-40); MCH 23.8 pg (25.7-33.7); MCHC 33.1 g/dl (32.0-35.9); MEAN PLT VOLUME 7.5 fl (7.5-11.1); MONO % 9.1 % (3.8-10.2); NEUT % 71.1 % (42.8-82.8); PLATELET COUNT 210 10^3/uL (134-434); RBC 4.82 M/mm3 (4.00-5.60); RDW 13.7 % (11.9-15.9); WHITE BLOOD COUNT 6.3 K/mm3 (4.0-10.0)
[2021-07-29 12:57] LABS: ALBUMIN 2.8 g/dl (3.4-5.0)
[2021-07-29] MEDS ORDERED: INSULIN (NOVOLOG) ASPART 100 UNITS/ML 10ML VIAL ONE (16:56)
[2021-07-29] MEDS ORDERED: ACETAMINOPHEN 325 MG TABLET (FP) PO PRN (21:38)
[2021-07-29] MEDS ORDERED: MENTHOL/PHENOL 1 EACH UD MM PRN (21:38)
[2021-07-29] MEDS ORDERED: MELATONIN 5 MG TABLETS PO ONE (22:04)
[2021-07-30] MEDS: HEPARIN NA (PORCINE) 5,000 UNITS/ML 1ML VIAL SQ SCH ×3 (06:07→21:58)
[2021-07-30] MEDS: NYSTATIN 500,000 UNITS/5 ML SUSPENSION PO SCH ×3 (06:07→17:15)
[2021-07-30] MEDS: INSULIN (LEVEMIR) 100 UNITS/ML UNITS SQ SCH ×2 (06:08→21:58)
[2021-07-30] MEDS: INSULIN SLIDING SCALE (NOVOLOG) 1 VIAL SQ SCH ×4 (06:08→21:57)
[2021-07-30] MEDS: ONDANSETRON 4 MG/2 ML VIAL IVPUSH PRN ×3 (06:10→20:29)
[2021-07-30] MEDS ORDERED: INSULIN (NOVOLOG) ASPART 100 UNITS/ML 10ML VIAL ONE (09:16)
[2021-07-30] MEDS: LOSARTAN POTASSIUM 50 MG TABLET PO SCH (09:28)
[2021-07-30] MEDS: hydrALAZINE HCL 25 MG TABLET (FP) PO SCH ×2 (09:29→21:58)
[2021-07-30] MEDS: LABETALOL HCL 100 MG TABLET (FP) PO SCH ×2 (09:29→21:58)
[2021-07-30] MEDS: AMOX TR/POT CLAV 875MG/125MG TABLETS (FP) PO SCH ×2 (12:42→17:43)
[2021-07-30] MEDS ORDERED: MINERAL OIL/PETROLAT/WATER TOPICAL CREAM 454 GM JAR TP PRN (21:18)
[2021-07-30] MEDS ORDERED: MELATONIN 5 MG TABLETS PO ONE (22:27)
[2021-07-30] MEDS ORDERED: ACETAMINOPHEN 1000 MG/100 ML VIAL IVPB ONE (22:28)
[2021-07-31] MEDS: NYSTATIN 500,000 UNITS/5 ML SUSPENSION PO SCH ×3 (01:26→11:48)
[2021-07-31] MEDS: HEPARIN NA (PORCINE) 5,000 UNITS/ML 1ML VIAL SQ SCH (07:12)
[2021-07-31] MEDS: INSULIN SLIDING SCALE (NOVOLOG) 1 VIAL SQ SCH ×2 (07:13→11:44)
[2021-07-31 07:30] LABS: BASO % 0.5 % (0-2.0); EOS % 1.4 % (0-4.5); HEMATOCRIT 38.4 % (35.4-49); HEMOGLOBIN 12.4 GM/dL (11.7-16.9); LYMPH % 36.1 % (8-40); MCH 23.7 pg (25.7-33.7); MCHC 32.2 g/dl (32.0-35.9); MEAN CELL VOLUME 73.5 fl (80-96); MEAN PLT VOLUME 7.8 fl (7.5-11.1); MONO % 9.4 % (3.8-10.2); NEUT % 52.6 % (42.8-82.8); PLATELET COUNT 244 10^3/uL (134-434); RBC 5.22 M/mm3 (4.00-5.60); RDW 14.2 % (11.9-15.9); WHITE BLOOD COUNT 5.6 K/mm3 (4.0-10.0)
[2021-07-31] MEDS: AMOX TR/POT CLAV 875MG/125MG TABLETS (FP) PO SCH (08:35)
[2021-07-31] MEDS: INSULIN (LEVEMIR) 100 UNITS/ML UNITS SQ SCH (08:36)
[2021-07-31 09:29] LABS: ALBUMIN 3.4 g/dl (3.4-5.0); ALK PHOS 157 U/L (45-117); ANION GAP 4 MMOL/L (8-16); BILIRUBIN,TOTAL 0.5 mg/dL (0.2-1); BLOOD UREA NITROGEN 10.3 mg/dL (7-18); CALCIUM 9.3 mg/dL (8.5-10.1); CHLORIDE 106 mmol/L (98-107); CO2 31 mmol/L (21-32); GLUCOSE,RANDOM 48 mg/dL (74-106); SGOT/AST 67 U/L (15-37); SGPT/ALT 74 U/L (13-61); SODIUM 141 mmol/L (136-145); TOT PROT 7.1 g/dl (6.4-8.2)
[2021-07-31] MEDS ORDERED: FAMOTIDINE 20 MG TABLET PO SCH (10:00)
[2021-07-31] MEDS: LABETALOL HCL 100 MG TABLET (FP) PO SCH (10:26)
[2021-07-31] MEDS: LOSARTAN POTASSIUM 50 MG TABLET PO SCH (10:26)
[2021-07-31] MEDS: hydrALAZINE HCL 25 MG TABLET (FP) PO SCH (10:26)
[2021-07-31 14:17] LABS: MAGNESIUM 2.4 mg/dL (1.8-2.4)
[2021-07-31] MEDS: ONDANSETRON 4 MG/2 ML VIAL IVPUSH PRN (14:31)
[2021-07-31 14:43] VITALS: BP 136/82; PULSE 84; TEMP 98.4
== END 2021-07-31 16:02 | disposition home or self-care (01) | DRG 420 ==
LOC: JER 23:05 → JERBED 07-27 03:10 → JICU 07-27 06:09 → J7W 07-29 17:41
PROVIDERS: ADMIT Internal Medicine Pulmonary Disease; ATTEND Family Medicine
DX: E11.10 Type 2 diabetes mellitus with ketoacidosis without coma (principal); G93.41 Metabolic encephalopathy; N17.9 Acute kidney failure, unspecified; E87.2 Acidosis; E87.5 Hyperkalemia; E87.1 Hypo-osmolality and hyponatremia; F16.10 Hallucinogen abuse, uncomplicated; I16.9 Hypertensive crisis, unspecified; K12.1 Other forms of stomatitis; E11.43 Type 2 diabetes mellitus with diabetic autonomic (poly)neuropathy; K21.9 Gastro-esophageal reflux disease without esophagitis; I10 Essential (primary) hypertension; R11.2 Nausea with vomiting, unspecified; K31.84 Gastroparesis; T40.995A Adverse effect of other psychodysleptics [hallucinogens], initial encounter; J39.2 Other diseases of pharynx; R13.10 Dysphagia, unspecified
CPT/HCPCS: 36415; 71045-TC-FY; 80048; 80053; 80307; 81003; 82010; 82040; 82550; 82803; 82962; 83735; 83930; 84100; 84484; 85025; 85027; 87086; 93005; 93010; 99285-25; C9803; J0131; J1644; U0003; U0005

== ENCOUNTER 2021-08-05 08:44 | Emergency (ER) | payer OTHER ==
[2021-08-05] MEDS ORDERED: DEXTROSE 50%-WATER 25 GM/50 ML DISP.SYRIN ONE (09:03)
[2021-08-05 09:16] VITALS: TEMP 94.7; BMI 26.3
[2021-08-05] MEDS ORDERED: DEXTROSE 10%-WATER - 1,000 ML IV SCH (09:30)
[2021-08-05] MEDS ORDERED: DEXTROSE 50%-WATER - 25 GM/50 ML VIAL IVPUSH ONE (10:14)
[2021-08-05 10:18] LABS: CHLORIDE 102 mmol/L (98-107); SODIUM 138 mmol/L (136-145)
[2021-08-05 10:20] LABS: CALCIUM 8.6 mg/dL (8.5-10.1)
[2021-08-05 10:21] LABS: ALBUMIN 3.2 g/dl (3.4-5.0); ANION GAP 9 MMOL/L (8-16); BLOOD UREA NITROGEN 13.3 mg/dL (7-18); CO2 27 mmol/L (21-32); GLUCOSE,RANDOM 54 mg/dL (74-106)
[2021-08-05 10:24] LABS: SGOT/AST 34 U/L (15-37); SGPT/ALT 57 U/L (13-61)
[2021-08-05 10:26] LABS: BILIRUBIN,TOTAL 0.2 mg/dL (0.2-1); TOT PROT 6.8 g/dl (6.4-8.2)
[2021-08-05 10:40] LABS: BASO % 0.7 % (0-2.0); HEMATOCRIT 36.4 % (35.4-49); HEMOGLOBIN 11.9 GM/dL (11.7-16.9); LYMPH % 12.6 % (8-40); MCH 24.3 pg (25.7-33.7); MCHC 32.6 g/dl (32.0-35.9); MEAN CELL VOLUME 74.3 fl (80-96); MEAN PLT VOLUME 7.5 fl (7.5-11.1); MONO % 12.9 % (3.8-10.2); NEUT % 72.8 % (42.8-82.8); PLATELET COUNT 406 10^3/uL (134-434); RDW 14.6 % (11.9-15.9); WHITE BLOOD COUNT 10.8 K/mm3 (4.0-10.0)
[2021-08-05 11:00] LABS: ALK PHOS 126 U/L (45-117)
[2021-08-05] MEDS ORDERED: SODIUM CHLORIDE 0.9% 500 ML INFUS.BAG IV ONE (11:12)
[2021-08-05 13:44] VITALS: BP 148/88; PULSE 82
== END 2021-08-05 13:44 | disposition home or self-care (01) ==
LOC: JER 08:44
PROC: 3E033NZ Introduction of Analgesics, Hypnotics, Sedatives into Peripheral Vein, Percutaneous Approach (ICD-10-PCS; principal; 2021-08-05)
DX: E16.2 Hypoglycemia, unspecified (principal)
CPT/HCPCS: 36415; 80053; 82550; 82553; 82962; 83605; 84484; 85025; 93005; 93010; 96374; 99284-25

== ENCOUNTER 2021-08-09 00:34 | Observation (INO) | payer OTHER ==
[2021-08-09] MEDS ORDERED: SODIUM CHLORIDE 1,000 ML IV STA (02:24)
[2021-08-09 02:52] LABS: VENOUS BASE EXCESS 3.7 mmol/L (-2-2); VENOUS O2 SATURATION 92.6 % (70-80); VENOUS PCO2 43.5 mmHg (38-52); VENOUS PH 7.433 (7.310-7.410)
[2021-08-09 02:53] LABS: BASO % 1.2 % (0-2.0); EOS % 2.6 % (0-4.5); HEMATOCRIT 33.3 % (35.4-49); HEMOGLOBIN 10.9 GM/dL (11.7-16.9); LYMPH % 24.3 % (8-40); MCH 23.8 pg (25.7-33.7); MCHC 32.7 g/dl (32.0-35.9); MEAN CELL VOLUME 72.7 fl (80-96); MEAN PLT VOLUME 6.6 fl (7.5-11.1); MONO % 7.6 % (3.8-10.2); NEUT % 64.3 % (42.8-82.8); PLATELET COUNT 389 10^3/uL (134-434); RBC 4.58 M/mm3 (4.00-5.60); RDW 14.7 % (11.9-15.9); WHITE BLOOD COUNT 11.1 K/mm3 (4.0-10.0)
[2021-08-09 03:12] LABS: CHLORIDE 99 mmol/L (98-107); SODIUM 139 mmol/L (136-145)
[2021-08-09 03:15] LABS: ANION GAP 12 MMOL/L (8-16); BLOOD UREA NITROGEN 21.9 mg/dL (7-18); CALCIUM 9.7 mg/dL (8.5-10.1); CO2 28 mmol/L (21-32); LIPASE 262 U/L (73-393)
[2021-08-09 03:16] LABS: ALBUMIN 3.1 g/dl (3.4-5.0); GLUCOSE,RANDOM 206 mg/dL (74-106); MAGNESIUM 2.2 mg/dL (1.8-2.4)
[2021-08-09 03:18] LABS: CREATININE 1.4 mg/dL (0.55-1.3); SGOT/AST 33 U/L (15-37); SGPT/ALT 57 U/L (13-61)
[2021-08-09 03:20] LABS: BILIRUBIN,TOTAL 0.2 mg/dL (0.2-1); TOT PROT 6.6 g/dl (6.4-8.2)
[2021-08-09 03:21] LABS: ALK PHOS 131 U/L (45-117)
[2021-08-09] MEDS ORDERED: POLYETHYLENE GLYCOL (HEALTHYLAX) 3350 17 GM PACKET PO PRN (04:58)
[2021-08-09] MEDS ORDERED: ACETAMINOPHEN 325 MG TABLET (FP) PO PRN (04:58)
[2021-08-09] MEDS ORDERED: ALBUTEROL SO4 HFA INHALER IH PRN (05:02)
[2021-08-09 06:34] LABS: URINE APPEARANCE CLEAR; URINE BILIRUBIN NEGATIVE (NEGATIVE); URINE COLOR YELLOW; URINE GLUCOSE (UA) 3+ (NEGATIVE); URINE KETONE NEGATIVE (NEGATIVE); URINE LEUK ESTERASE NEGATIVE (NEGATIVE); URINE NITRITE NEGATIVE (NEGATIVE); URINE PROTEIN NEGATIVE (NEGATIVE); URINE UROBILINOGEN 0.2 mg/dL (0.2-1.0)
[2021-08-09] MEDS ORDERED: LABETALOL HCL 100 MG TABLET (FP) ONE (07:40)
[2021-08-09] MEDS ORDERED: FAMOTIDINE 20 MG TABLET ONE (07:41)
[2021-08-09] MEDS ORDERED: hydrALAZINE HCL 25 MG TABLET (FP) ONE (07:41)
[2021-08-09] MEDS: FAMOTIDINE 20 MG TABLET PO SCH (10:36)
[2021-08-09] MEDS ORDERED: LOSARTAN POTASSIUM 50 MG TABLET ONE (10:57)
[2021-08-09] MEDS: hydrALAZINE HCL 25 MG TABLET (FP) PO SCH ×2 (11:04→21:30)
[2021-08-09] MEDS: GABAPENTIN 300 MG CAPSULE PO SCH ×3 (11:04→21:30)
[2021-08-09] MEDS: LOSARTAN POTASSIUM 50 MG TABLET PO SCH (11:04)
[2021-08-09] MEDS: LABETALOL HCL 100 MG TABLET (FP) PO SCH ×2 (11:04→21:30)
[2021-08-09] MEDS: BUDESONIDE/FORMETEROL FUMARATE 160/4.5 mcg INHALER IH SCH ×2 (11:04→21:29)
[2021-08-09] MEDS ORDERED: PNEUMOC 13-VAL CONJ-DIP CRM/PF 0.5 ML DISP.SYRIN IM ONE (14:33)
[2021-08-09 14:42] VITALS: BMI 26.0
[2021-08-09] MEDS ORDERED: INSULIN (NOVOLOG) ASPART 100 UNITS/ML 10ML VIAL ONE (17:46)
[2021-08-09] MEDS: INSULIN SLIDING SCALE (NOVOLOG) 1 VIAL SQ SCH ×2 (17:55→21:30)
[2021-08-09] MEDS ORDERED: PNEUMOCOCCAL 23 VACCINE 0.5 ML VIAL IM ONE (18:00)
[2021-08-09] MEDS: QUEtiapine FUMARATE 100 MG TABLET (FP) PO SCH (21:30)
[2021-08-09] MEDS: MIRTAZAPINE 15 MG TABLET (FP) PO SCH (21:30)
[2021-08-10] MEDS: GABAPENTIN 300 MG CAPSULE PO SCH ×3 (06:32→22:10)
[2021-08-10] MEDS: INSULIN SLIDING SCALE (NOVOLOG) 1 VIAL SQ SCH ×4 (06:33→21:05)
[2021-08-10] MEDS ORDERED: INSULIN (NOVOLOG) ASPART 100 UNITS/ML 10ML VIAL ONE ×2 (06:38→12:16)
[2021-08-10] MEDS ORDERED: PT OWN MED DRAWER 7, Y5N ONE (10:23)
[2021-08-10] MEDS: FAMOTIDINE 20 MG TABLET PO SCH (11:01)
[2021-08-10] MEDS: hydrALAZINE HCL 25 MG TABLET (FP) PO SCH ×2 (11:01→22:10)
[2021-08-10] MEDS: LOSARTAN POTASSIUM 50 MG TABLET PO SCH (11:01)
[2021-08-10] MEDS: BUDESONIDE/FORMETEROL FUMARATE 160/4.5 mcg INHALER IH SCH ×2 (11:02→22:11)
[2021-08-10] MEDS: LABETALOL HCL 100 MG TABLET (FP) PO SCH ×2 (11:02→22:10)
[2021-08-10 14:48] LABS: BASO % 0.8 % (0-2.0); EOS % 3.5 % (0-4.5); HEMATOCRIT 35.3 % (35.4-49); HEMOGLOBIN 11.5 GM/dL (11.7-16.9); LYMPH % 21.3 % (8-40); MCHC 32.7 g/dl (32.0-35.9); MEAN CELL VOLUME 73.4 fl (80-96); MEAN PLT VOLUME 7.1 fl (7.5-11.1); MONO % 6.1 % (3.8-10.2); NEUT % 68.3 % (42.8-82.8); PLATELET COUNT 390 10^3/uL (134-434); RBC 4.81 M/mm3 (4.00-5.60); RDW 14.8 % (11.9-15.9); WHITE BLOOD COUNT 7.6 K/mm3 (4.0-10.0)
[2021-08-10 15:21] LABS: CALCIUM 9.6 mg/dL (8.5-10.1)
[2021-08-10 15:22] LABS: ALBUMIN 3.2 g/dl (3.4-5.0); BLOOD UREA NITROGEN 19.2 mg/dL (7-18); MAGNESIUM 2.3 mg/dL (1.8-2.4)
[2021-08-10 15:25] LABS: CREATININE 0.9 mg/dL (0.55-1.3)
[2021-08-10 15:26] LABS: BILIRUBIN,TOTAL 0.3 mg/dL (0.2-1)
[2021-08-10 15:27] LABS: TOT PROT 6.5 g/dl (6.4-8.2)
[2021-08-10] MEDS: MIRTAZAPINE 15 MG TABLET (FP) PO SCH (22:10)
[2021-08-10] MEDS: QUEtiapine FUMARATE 100 MG TABLET (FP) PO SCH (22:10)
[2021-08-11] MEDS: GABAPENTIN 300 MG CAPSULE PO SCH ×3 (05:49→21:48)
[2021-08-11] MEDS: INSULIN SLIDING SCALE (NOVOLOG) 1 VIAL SQ SCH ×4 (06:06→21:57)
[2021-08-11] MEDS ORDERED: PT OWN MED DRAWER 7, Y5N ONE (09:02)
[2021-08-11] MEDS: LOSARTAN POTASSIUM 50 MG TABLET PO SCH (11:05)
[2021-08-11] MEDS: LABETALOL HCL 100 MG TABLET (FP) PO SCH ×2 (11:05→21:49)
[2021-08-11] MEDS: hydrALAZINE HCL 25 MG TABLET (FP) PO SCH ×2 (11:05→21:49)
[2021-08-11] MEDS: FAMOTIDINE 20 MG TABLET PO SCH (11:06)
[2021-08-11] MEDS: BUDESONIDE/FORMETEROL FUMARATE 160/4.5 mcg INHALER IH SCH ×2 (11:37→22:05)
[2021-08-11] MEDS: MIRTAZAPINE 15 MG TABLET (FP) PO SCH (21:48)
[2021-08-11] MEDS: QUEtiapine FUMARATE 100 MG TABLET (FP) PO SCH (21:49)
[2021-08-11] MEDS: INSULIN (LEVEMIR) 100 UNITS/ML UNITS SQ SCH (21:57)
[2021-08-12] MEDS: GABAPENTIN 300 MG CAPSULE PO SCH ×3 (05:55→22:13)
[2021-08-12] MEDS: INSULIN SLIDING SCALE (NOVOLOG) 1 VIAL SQ SCH ×4 (06:35→22:22)
[2021-08-12] MEDS: INSULIN (LEVEMIR) 100 UNITS/ML UNITS SQ SCH ×2 (07:30→22:14)
[2021-08-12] MEDS: FAMOTIDINE 20 MG TABLET PO SCH (10:02)
[2021-08-12] MEDS: LOSARTAN POTASSIUM 50 MG TABLET PO SCH (10:02)
[2021-08-12] MEDS: LABETALOL HCL 100 MG TABLET (FP) PO SCH ×2 (10:03→22:13)
[2021-08-12] MEDS: hydrALAZINE HCL 25 MG TABLET (FP) PO SCH ×2 (10:03→22:14)
[2021-08-12] MEDS: BUDESONIDE/FORMETEROL FUMARATE 160/4.5 mcg INHALER IH SCH ×2 (11:24→22:15)
[2021-08-12] MEDS: MIRTAZAPINE 15 MG TABLET (FP) PO SCH (22:13)
[2021-08-12] MEDS: QUEtiapine FUMARATE 100 MG TABLET (FP) PO SCH (22:13)
[2021-08-13] MEDS: GABAPENTIN 300 MG CAPSULE PO SCH ×2 (06:05→13:41)
[2021-08-13] MEDS: INSULIN SLIDING SCALE (NOVOLOG) 1 VIAL SQ SCH ×3 (06:06→17:06)
[2021-08-13] MEDS ORDERED: INSULIN (LEVEMIR) 100 UNITS/ML UNITS SQ SCH ×2 (07:00→22:00)
[2021-08-13] MEDS ORDERED: PT OWN MED DRAWER 7, Y5N ONE (09:30)
[2021-08-13] MEDS: hydrALAZINE HCL 25 MG TABLET (FP) PO SCH (09:49)
[2021-08-13] MEDS: LOSARTAN POTASSIUM 50 MG TABLET PO SCH (09:49)
[2021-08-13] MEDS: FAMOTIDINE 20 MG TABLET PO SCH (09:50)
[2021-08-13] MEDS: LABETALOL HCL 100 MG TABLET (FP) PO SCH (09:50)
[2021-08-13] MEDS: BUDESONIDE/FORMETEROL FUMARATE 160/4.5 mcg INHALER IH SCH (09:51)
[2021-08-13] MEDS ORDERED: INSULIN (NOVOLOG) ASPART 100 UNITS/ML 10ML VIAL ONE (11:34)
[2021-08-13 13:11] VITALS: BP 113/68; PULSE 85; TEMP 98.4
== END 2021-08-13 18:46 | disposition home or self-care (01) ==
LOC: JER 00:34 → JERBED 03:41 → J8W 14:09
PROVIDERS: ADMIT Internal Medicine; ATTEND Family Medicine
PROC: 3E0337Z Introduction of Electrolytic and Water Balance Substance into Peripheral Vein, Percutaneous Approach (ICD-10-PCS; principal; 2021-08-09)
PROC: 3E013VG Introduction of Insulin into Subcutaneous Tissue, Percutaneous Approach (ICD-10-PCS; 2021-08-09)
PROC: 3E013VG Introduction of Insulin into Subcutaneous Tissue, Percutaneous Approach (ICD-10-PCS; 2021-08-09)
PROC: 3E0F7SF Introduction of Other Gas into Respiratory Tract, Via Natural or Artificial Opening (ICD-10-PCS; 2021-08-09)
PROC: 3E0134Z Introduction of Serum, Toxoid and Vaccine into Subcutaneous Tissue, Percutaneous Approach (ICD-10-PCS; 2021-08-09)
DX: E10.65 Type 1 diabetes mellitus with hyperglycemia (principal); E10.10 Type 1 diabetes mellitus with ketoacidosis without coma; E10.22 Type 1 diabetes mellitus with diabetic chronic kidney disease; I12.9 Hypertensive chronic kidney disease with stage 1 through stage 4 chronic kidney disease, or unspecified chronic kidney disease; N18.9 Chronic kidney disease, unspecified; Z79.4 Long term (current) use of insulin; Z91.14 Patient's other noncompliance with medication regimen; N17.9 Acute kidney failure, unspecified; I10 Essential (primary) hypertension; E78.5 Hyperlipidemia, unspecified; J45.909 Unspecified asthma, uncomplicated; K21.9 Gastro-esophageal reflux disease without esophagitis; Z29.8 Encounter for other specified prophylactic measures; D64.9 Anemia, unspecified; K76.0 Fatty (change of) liver, not elsewhere classified; R11.10 Vomiting, unspecified; Z87.891 Personal history of nicotine dependence
CPT/HCPCS: 36415; 71045-TC-FY; 80053; 81003; 82010; 82550; 82803; 82962; 83690; 83735; 84484; 85025; 90471; 90732; 93005; 93010; 94640; 96360; 96372; 99285-25; C9803; G0009; G0378; U0003; U0005

== ENCOUNTER 2021-09-09 08:59 | Inpatient (IN) | payer OTHER ==
[2021-09-09] MEDS ORDERED: LACTATED RINGERS SOLUTION 1000 ML INFUS.BAG IV ONE ×3 (09:42→16:17)
[2021-09-09 09:48] LABS: VENOUS BASE EXCESS -16.8 mmol/L (-2-2); VENOUS O2 SATURATION 33.4 % (70-80); VENOUS PCO2 36.6 mmHg (38-52)
[2021-09-09 09:50] LABS: VENOUS PH 7.122 (7.310-7.410)
[2021-09-09] MEDS ORDERED: ONDANSETRON 4 MG/2 ML VIAL IVPUSH ONE (09:53)
[2021-09-09] MEDS ORDERED: PANTOPRAZOLE SODIUM 40 MG VIAL IVPUSH ONE (09:54)
[2021-09-09 10:08] LABS: CHLORIDE 96 mmol/L (98-107); SODIUM 135 mmol/L (136-145)
[2021-09-09 10:09] LABS: BASO % 0.1 % (0-2.0); EOS % 0.5 % (0-4.5); HEMATOCRIT 46.8 % (35.4-49); HEMOGLOBIN 14.6 GM/dL (11.7-16.9); LYMPH % 10.7 % (8-40); MCHC 31.2 g/dl (32.0-35.9); MEAN CELL VOLUME 73.7 fl (80-96); MEAN PLT VOLUME 8.3 fl (7.5-11.1); MONO % 4.3 % (3.8-10.2); NEUT % 84.4 % (42.8-82.8); PLATELET COUNT 318 10^3/uL (134-434); RBC 6.35 M/mm3 (4.00-5.60); RDW 14.2 % (11.9-15.9); WHITE BLOOD COUNT 15.7 K/mm3 (4.0-10.0)
[2021-09-09 10:10] LABS: CALCIUM 9.7 mg/dL (8.5-10.1)
[2021-09-09 10:11] LABS: ALBUMIN 4.4 g/dl (3.4-5.0); ANION GAP 26 MMOL/L (8-16); BLOOD UREA NITROGEN 27.8 mg/dL (7-18); CO2 13 mmol/L (21-32); MAGNESIUM 2.5 mg/dL (1.8-2.4)
[2021-09-09 10:14] LABS: CREATININE 1.9 mg/dL (0.55-1.3); PHOSPHOROUS 5.2 mg/dL (2.5-4.9); SGOT/AST 14 U/L (15-37); SGPT/ALT 31 U/L (13-61)
[2021-09-09 10:15] LABS: BILIRUBIN,TOTAL 0.6 mg/dL (0.2-1); TOT PROT 8.4 g/dl (6.4-8.2)
[2021-09-09 10:17] LABS: ALK PHOS 138 U/L (45-117)
[2021-09-09] MEDS ORDERED: INSULIN REGULAR 100 UNITS in SODIUM CHLORIDE 99 ML IVPB SCH ×2 (10:30→19:00)
[2021-09-09] MEDS ORDERED: LORazepam 2 MG/ML SDV VIAL IVPUSH ONE (10:41)
[2021-09-09] MEDS ORDERED: LORazepam 2 MG/ML SDV VIAL ONE (11:21)
[2021-09-09 11:22] LABS: GLUCOSE,RANDOM 425 mg/dL (74-106)
[2021-09-09] MEDS ORDERED: PANTOPRAZOLE SODIUM 40 MG VIAL ONE (11:22)
[2021-09-09 14:16] LABS: EPI CELLS 3 /uL (0-25.1); HYALINE CASTS 2 /uL (0-3.1); URINE APPEARANCE CLEAR; URINE BACTERIA 0 /uL (0-1359); URINE BILIRUBIN NEGATIVE (NEGATIVE); URINE COLOR YELLOW; URINE GLUCOSE (UA) 3+ (NEGATIVE); URINE KETONE 4+ (NEGATIVE); URINE LEUK ESTERASE NEGATIVE (NEGATIVE); URINE NITRITE NEGATIVE (NEGATIVE); URINE PROTEIN 1+ (NEGATIVE); URINE RBC 5 /uL (0-23.9); URINE UROBILINOGEN 0.2 mg/dL (0.2-1.0); URINE WBC 2 /uL (0-25.8)
[2021-09-09 15:21] LABS: ARTERIAL BLD GAS O2 SATURATION 31.8 % (95-98); ARTERIAL BLOOD GAS BASE EXCESS -15.5 mmol/L (-2-2)
[2021-09-09 15:24] LABS: ARTERIAL BLOOD GAS PO2 23.7 mmHg (80-100); ARTERIAL BLOOD GAS pH 7.196 (7.350-7.450)
[2021-09-09 15:43] LABS: BLOOD UREA NITROGEN 30.7 mg/dL (7-18); CALCIUM 9.7 mg/dL (8.5-10.1)
[2021-09-09 15:46] LABS: CREATININE 1.8 mg/dL (0.55-1.3)
[2021-09-09] MEDS ORDERED: D5-1/2NS+20 MEQ KCL - 20 MEQ/1,000 ML INFUS.BAG IV SCH (16:30)
[2021-09-09] MEDS ORDERED: ALBUTEROL SO4 HFA INHALER IH PRN (17:24)
[2021-09-09] MEDS ORDERED: PT OWN MED DRAWER 7, Y5N ONE (21:14)
[2021-09-09] MEDS: GABAPENTIN 300 MG CAPSULE PO SCH (21:25)
[2021-09-09] MEDS: hydrALAZINE HCL 25 MG TABLET (FP) PO SCH (21:25)
[2021-09-09] MEDS: LABETALOL HCL 100 MG TABLET (FP) PO SCH (21:25)
[2021-09-09 21:30] LABS: CALCIUM 8.6 mg/dL (8.5-10.1)
[2021-09-09 21:31] LABS: BLOOD UREA NITROGEN 24.6 mg/dL (7-18)
[2021-09-09 21:34] LABS: CREATININE 1.6 mg/dL (0.55-1.3)
[2021-09-09] MEDS: CHLORHEXIDINE GLUCONATE 4% CLEANSER FOR DECOLONIZATION TP SCH (21:50)
[2021-09-09] MEDS: MUPIROCIN 2% TOPICAL OINTMENT FOR DECOLONIZATION NS SCH (22:49)
[2021-09-10 01:42] LABS: CALCIUM 8.3 mg/dL (8.5-10.1)
[2021-09-10 01:43] LABS: BLOOD UREA NITROGEN 20.9 mg/dL (7-18)
[2021-09-10 01:46] LABS: CREATININE 1.4 mg/dL (0.55-1.3)
[2021-09-10] MEDS ORDERED: PT OWN MED DRAWER 7, Y5N ONE (03:17)
[2021-09-10] MEDS: BUDESONIDE/FORMETEROL FUMARATE 160/4.5 mcg INHALER IH SCH ×3 (04:22→22:33)
[2021-09-10] MEDS: GABAPENTIN 300 MG CAPSULE PO SCH ×3 (06:46→22:32)
[2021-09-10] MEDS ORDERED: INSULIN (LEVEMIR) 100 UNITS/ML UNITS SQ ONE (07:42)
[2021-09-10] MEDS: MUPIROCIN 2% TOPICAL OINTMENT FOR DECOLONIZATION NS SCH ×2 (10:07→22:32)
[2021-09-10] MEDS: hydrALAZINE HCL 25 MG TABLET (FP) PO SCH ×2 (10:07→22:31)
[2021-09-10] MEDS: PANTOPRAZOLE SODIUM 40 MG VIAL IVPUSH SCH (10:08)
[2021-09-10] MEDS: LABETALOL HCL 100 MG TABLET (FP) PO SCH ×2 (10:08→22:31)
[2021-09-10] MEDS: ENOXAPARIN NA (PORCINE) 40 MG/0.4 ML DISP.SYRIN SQ SCH ×2 (10:08→10:28)
[2021-09-10] MEDS: SODIUM CHLORIDE 1,000 ML IV SCH (10:29)
[2021-09-10] MEDS: INSULIN SLIDING SCALE (NOVOLOG) 1 VIAL SQ SCH ×2 (17:55→22:47)
[2021-09-10] MEDS ORDERED: MIRTAZAPINE 15 MG TABLET (FP) PO SCH (22:00)
[2021-09-10] MEDS: CHLORHEXIDINE GLUCONATE 4% CLEANSER FOR DECOLONIZATION TP SCH (22:32)
[2021-09-10] MEDS: INSULIN (LEVEMIR) 100 UNITS/ML UNITS SQ SCH (22:34)
[2021-09-11] MEDS: GABAPENTIN 300 MG CAPSULE PO SCH ×3 (06:03→22:08)
[2021-09-11] MEDS: INSULIN (LEVEMIR) 100 UNITS/ML UNITS SQ SCH ×2 (06:03→22:18)
[2021-09-11] MEDS: INSULIN SLIDING SCALE (NOVOLOG) 1 VIAL SQ SCH ×3 (06:04→18:55)
[2021-09-11 07:41] LABS: BASO % 0.5 % (0-2.0); EOS % 2.9 % (0-4.5); HEMOGLOBIN 11.2 GM/dL (11.7-16.9); LYMPH % 33.3 % (8-40); MCHC 32.1 g/dl (32.0-35.9); MEAN CELL VOLUME 71.9 fl (80-96); MONO % 6.5 % (3.8-10.2); NEUT % 56.8 % (42.8-82.8); PLATELET COUNT 235 10^3/uL (134-434); RBC 4.87 M/mm3 (4.00-5.60); RDW 14.4 % (11.9-15.9); WHITE BLOOD COUNT 6.3 K/mm3 (4.0-10.0)
[2021-09-11 08:20] LABS: CALCIUM 8.9 mg/dL (8.5-10.1)
[2021-09-11 08:21] LABS: BLOOD UREA NITROGEN 13.3 mg/dL (7-18)
[2021-09-11 08:23] LABS: PHOSPHOROUS 2.4 mg/dL (2.5-4.9)
[2021-09-11 08:24] LABS: BILIRUBIN,TOTAL 0.4 mg/dL (0.2-1)
[2021-09-11 08:27] LABS: CREATININE 1.1 mg/dL (0.55-1.3)
[2021-09-11 08:37] LABS: TOT PROT 5.8 g/dl (6.4-8.2)
[2021-09-11] MEDS ORDERED: POTASSIUM CHLORIDE TABS 20 MEQ TABLET.ER (FP) PO ONE (10:19)
[2021-09-11] MEDS: PANTOPRAZOLE SODIUM 40 MG VIAL IVPUSH SCH (10:28)
[2021-09-11] MEDS: LABETALOL HCL 100 MG TABLET (FP) PO SCH (10:28)
[2021-09-11] MEDS: BUDESONIDE/FORMETEROL FUMARATE 160/4.5 mcg INHALER IH SCH (10:29)
[2021-09-11] MEDS: MUPIROCIN 2% TOPICAL OINTMENT FOR DECOLONIZATION NS SCH (10:29)
[2021-09-11] MEDS: SODIUM CHLORIDE 1,000 ML IV SCH (10:29)
[2021-09-11] MEDS: hydrALAZINE HCL 25 MG TABLET (FP) PO SCH (10:29)
[2021-09-11 10:57] VITALS: BMI 23.7
[2021-09-11] MEDS: ENOXAPARIN NA (PORCINE) 40 MG/0.4 ML DISP.SYRIN SQ SCH (11:50)
[2021-09-11] MEDS ORDERED: ALBUTEROL SO4 HFA INHALER IH PRN ×2 (13:11→15:57)
[2021-09-11] MEDS ORDERED: GABAPENTIN 300 MG CAPSULE PO SCH (14:00)
[2021-09-11] MEDS ORDERED: POTASSIUM PHOSPHATE 30 MM in SODIUM CHLORIDE 250 ML IVPB ONE (17:00)
[2021-09-11] MEDS ORDERED: INSULIN SLIDING SCALE (NOVOLOG) 1 VIAL SQ SCH (17:00)
[2021-09-11] MEDS ORDERED: CHLORHEXIDINE GLUCONATE 4% CLEANSER FOR DECOLONIZATION TP SCH (22:00)
[2021-09-11] MEDS ORDERED: MIRTAZAPINE 15 MG TABLET (FP) PO SCH (22:00)
[2021-09-11] MEDS ORDERED: MUPIROCIN 2% TOPICAL OINTMENT FOR DECOLONIZATION NS SCH (22:00)
[2021-09-12] MEDS: BUDESONIDE/FORMETEROL FUMARATE 160/4.5 mcg INHALER IH SCH ×2 (00:09→11:41)
[2021-09-12] MEDS: INSULIN SLIDING SCALE (NOVOLOG) 1 VIAL SQ SCH ×3 (06:18→16:37)
[2021-09-12] MEDS: INSULIN (LEVEMIR) 100 UNITS/ML UNITS SQ SCH (06:19)
[2021-09-12] MEDS: GABAPENTIN 300 MG CAPSULE PO SCH ×2 (06:20→14:56)
[2021-09-12] MEDS ORDERED: INSULIN (NOVOLOG) ASPART 100 UNITS/ML 10ML VIAL SQ SCH (07:00)
[2021-09-12] MEDS ORDERED: INSULIN (LEVEMIR) 100 UNITS/ML UNITS SQ ONE (08:50)
[2021-09-12] MEDS ORDERED: ENOXAPARIN NA (PORCINE) 40 MG/0.4 ML DISP.SYRIN SQ SCH (10:00)
[2021-09-12] MEDS ORDERED: LOSARTAN POTASSIUM 50 MG TABLET PO SCH (10:00)
[2021-09-12] MEDS ORDERED: PANTOPRAZOLE SODIUM 40 MG VIAL IVPUSH SCH (10:00)
[2021-09-12] MEDS ORDERED: INSULIN (LEVEMIR) 100 UNITS/ML UNITS SQ SCH (12:33)
[2021-09-12 12:57] LABS: HEMATOCRIT 32.9 % (35.4-49); HEMOGLOBIN 10.8 GM/dL (11.7-16.9); MCH 23.4 pg (25.7-33.7); MCHC 32.8 g/dl (32.0-35.9); MEAN CELL VOLUME 71.5 fl (80-96); MEAN PLT VOLUME 8.2 fl (7.5-11.1); PLATELET COUNT 218 10^3/uL (134-434); RBC 4.61 M/mm3 (4.00-5.60); RDW 14.4 % (11.9-15.9); WHITE BLOOD COUNT 5.9 K/mm3 (4.0-10.0)
[2021-09-12 13:34] LABS: CALCIUM 8.9 mg/dL (8.5-10.1)
[2021-09-12 13:36] LABS: MAGNESIUM 1.7 mg/dL (1.8-2.4)
[2021-09-12 13:37] LABS: PHOSPHOROUS 2.8 mg/dL (2.5-4.9)
[2021-09-12 13:38] LABS: CREATININE 0.9 mg/dL (0.55-1.3)
[2021-09-12] MEDS ORDERED: MAGNESIUM 2GM/50ML STERILE WATER IVPB IVPB ONE (15:00)
[2021-09-12 17:01] VITALS: BP 120/78; PULSE 78; TEMP 98.9
== END 2021-09-12 17:26 | disposition home or self-care (01) | DRG 420 ==
LOC: JER 08:59 → JERBED 15:16 → JICU 17:38 → J5S 09-11 15:50
PROVIDERS: ADMIT Internal Medicine Pulmonary Disease; ATTEND Internal Medicine
DX: E10.10 Type 1 diabetes mellitus with ketoacidosis without coma (principal); K21.9 Gastro-esophageal reflux disease without esophagitis; N17.9 Acute kidney failure, unspecified; U07.1 COVID-19; R71.8 Other abnormality of red blood cells; D72.829 Elevated white blood cell count, unspecified; J45.909 Unspecified asthma, uncomplicated; R00.0 Tachycardia, unspecified; E87.6 Hypokalemia; E83.39 Other disorders of phosphorus metabolism; R94.31 Abnormal electrocardiogram [ECG] [EKG]; E86.0 Dehydration; F16.10 Hallucinogen abuse, uncomplicated; M54.9 Dorsalgia, unspecified; K76.0 Fatty (change of) liver, not elsewhere classified; I12.9 Hypertensive chronic kidney disease with stage 1 through stage 4 chronic kidney disease, or unspecified chronic kidney disease; E10.22 Type 1 diabetes mellitus with diabetic chronic kidney disease; N18.9 Chronic kidney disease, unspecified; Z91.14 Patient's other noncompliance with medication regimen
CPT/HCPCS: 36415; 36600; 71045-TC-FY; 80048; 80053; 80061; 81003; 82010; 82728; 82803; 82962; 83036; 83540; 83550; 83735; 84100; 85025; 85027; 87040; 87086; 93005; 93010; 99291; C9803; U0003; U0005

== ENCOUNTER 2021-10-06 16:50 | Inpatient (IN) | payer OTHER ==
[2021-10-06 17:53] LABS: BASO % 0.2 % (0-2.0); EOS % 0.1 % (0-4.5); HEMATOCRIT 45.2 % (35.4-49); LYMPH % 6.9 % (8-40); MCH 22.9 pg (25.7-33.7); MCHC 30.9 g/dl (32.0-35.9); MEAN PLT VOLUME 8.4 fl (7.5-11.1); MONO % 2.1 % (3.8-10.2); NEUT % 90.7 % (42.8-82.8); PLATELET COUNT 299 10^3/uL (134-434); RBC 6.11 M/mm3 (4.00-5.60); WHITE BLOOD COUNT 14.1 K/mm3 (4.0-10.0)
[2021-10-06 18:00] LABS: VENOUS O2 SATURATION 40.1 % (70-80); VENOUS PCO2 31.9 mmHg (38-52)
[2021-10-06 18:01] LABS: VENOUS PH 7.096 (7.310-7.410)
[2021-10-06] MEDS ORDERED: LACTATED RINGERS SOLUTION 1000 ML INFUS.BAG IV ONE (18:15)
[2021-10-06] MEDS ORDERED: FAMOTIDINE 20 MG/50 ML IVPB 20 MG/50 ML MG IVPB ONE ×2 (18:19→18:39)
[2021-10-06 18:20] LABS: CHLORIDE 96 mmol/L (98-107); SODIUM 133 mmol/L (136-145)
[2021-10-06 18:23] LABS: ALBUMIN 4.6 g/dl (3.4-5.0); ANION GAP 27 MMOL/L (8-16); BLOOD UREA NITROGEN 26.9 mg/dL (7-18); CALCIUM 9.9 mg/dL (8.5-10.1); CO2 10 mmol/L (21-32)
[2021-10-06 18:26] LABS: CREATININE 1.8 mg/dL (0.55-1.3); SGOT/AST 11 U/L (15-37); SGPT/ALT 25 U/L (13-61)
[2021-10-06 18:27] LABS: TOT PROT 8.5 g/dl (6.4-8.2)
[2021-10-06 18:28] LABS: BILIRUBIN,TOTAL 0.8 mg/dL (0.2-1)
[2021-10-06 18:29] LABS: ALK PHOS 132 U/L (45-117)
[2021-10-06 18:57] LABS: GLUCOSE,RANDOM 469 mg/dL (74-106)
[2021-10-06] MEDS ORDERED: SODIUM CHLORIDE 0.9% 500 ML INFUS.BAG IV ONE (19:06)
[2021-10-06] MEDS ORDERED: INSULIN DRIP - PLEASE ORDER UNDER SETS NR ONE (19:07)
[2021-10-06] MEDS ORDERED: INSULIN REGULAR HUMAN 100 UNITS/ML *VIAL* (FOR IVP) IVPUSH ONE (19:17)
[2021-10-06] MEDS ORDERED: INSULIN REGULAR 100 UNITS in SODIUM CHLORIDE 99 ML IVPB SCH (19:30)
[2021-10-06] MEDS ORDERED: KCL 10 MEQ IVPB 20 MEQ/200 ML INFUS.BAG IVPB ONE (20:15)
[2021-10-06] MEDS: KCL 10 MEQ IVPB 10 MEQ/100 ML INFUS.BAG IVPB SCH (20:26)
[2021-10-06] MEDS ORDERED: SODIUM CHLORIDE 0.9% 1000 ML INFUS.BAG IV ONE (20:37)
[2021-10-06 23:22] LABS: EPI CELLS 1 /uL (0-25.1); HYALINE CASTS 0 /uL (0-3.1); URINE APPEARANCE CLEAR; URINE BACTERIA 0 /uL (0-1359); URINE BILIRUBIN NEGATIVE (NEGATIVE); URINE COLOR YELLOW; URINE GLUCOSE (UA) 3+ (NEGATIVE); URINE KETONE 4+ (NEGATIVE); URINE LEUK ESTERASE NEGATIVE (NEGATIVE); URINE NITRITE NEGATIVE (NEGATIVE); URINE PROTEIN 1+ (NEGATIVE); URINE RBC 2 /uL (0-23.9); URINE UROBILINOGEN 0.2 mg/dL (0.2-1.0); URINE WBC 1 /uL (0-25.8)
[2021-10-06 23:22] LABS: BLOOD UREA NITROGEN 29.2 mg/dL (7-18)
[2021-10-06 23:25] LABS: CREATININE 1.6 mg/dL (0.55-1.3)
[2021-10-07] MEDS ORDERED: DEXTROSE 50%-WATER - 25 GM/50 ML VIAL IVPUSH PRN ×2 (00:06→20:25)
[2021-10-07] MEDS ORDERED: SODIUM CHLORIDE 0.9%/KCL 20 MEQ/1,000 ML INFUS.BAG IV SCH (00:15)
[2021-10-07 00:33] LABS: CALCIUM 8.3 mg/dL (8.5-10.1)
[2021-10-07] MEDS ORDERED: PROCHLORPERAZINE INJECTION 10 MG/2 ML VIAL IVPB PRN (01:04)
[2021-10-07] MEDS: D5-1/2NS+20 MEQ KCL - 20 MEQ/1,000 ML INFUS.BAG IV SCH (01:45)
[2021-10-07 03:11] VITALS: BMI 25.0
[2021-10-07] MEDS ORDERED: PNEUMOC 13-VAL CONJ-DIP CRM/PF 0.5 ML DISP.SYRIN IM ONE (03:11)
[2021-10-07] MEDS: KCL 10 MEQ IVPB 10 MEQ/100 ML INFUS.BAG IVPB SCH (05:18)
[2021-10-07] MEDS: MUPIROCIN 2% TOPICAL OINTMENT FOR DECOLONIZATION NS SCH ×3 (05:20→21:33)
[2021-10-07] MEDS: HEPARIN NA (PORCINE) 5,000 UNITS/ML 1ML VIAL SQ SCH ×3 (05:21→21:33)
[2021-10-07 05:43] LABS: BLOOD UREA NITROGEN 21.7 mg/dL (7-18); CALCIUM 7.8 mg/dL (8.5-10.1)
[2021-10-07 05:47] LABS: CREATININE 1.5 mg/dL (0.55-1.3)
[2021-10-07 08:24] LABS: BASO % 0.1 % (0-2.0); EOS % 0.1 % (0-4.5); HEMATOCRIT 39.2 % (35.4-49); HEMOGLOBIN 12.1 GM/dL (11.7-16.9); MCH 22.5 pg (25.7-33.7); MCHC 30.9 g/dl (32.0-35.9); MEAN CELL VOLUME 72.9 fl (80-96); MEAN PLT VOLUME 7.8 fl (7.5-11.1); MONO % 5.6 % (3.8-10.2); NEUT % 82.2 % (42.8-82.8); PLATELET COUNT 266 10^3/uL (134-434); RBC 5.37 M/mm3 (4.00-5.60); RDW 14.8 % (11.9-15.9); WHITE BLOOD COUNT 13.2 K/mm3 (4.0-10.0)
[2021-10-07 08:47] LABS: CALCIUM 8.7 mg/dL (8.5-10.1)
[2021-10-07 08:48] LABS: BLOOD UREA NITROGEN 18.1 mg/dL (7-18)
[2021-10-07 08:51] LABS: CREATININE 1.5 mg/dL (0.55-1.3); PHOSPHOROUS 1.9 mg/dL (2.5-4.9)
[2021-10-07 08:52] LABS: BILIRUBIN,TOTAL 0.7 mg/dL (0.2-1); TOT PROT 6.8 g/dl (6.4-8.2)
[2021-10-07] MEDS: INSULIN (LEVEMIR) 100 UNITS/ML UNITS SQ SCH ×3 (08:57→21:22)
[2021-10-07 09:00] LABS: ALBUMIN 3.6 g/dl (3.4-5.0)
[2021-10-07] MEDS: PANTOPRAZOLE SODIUM 40 MG VIAL IVPUSH SCH (09:07)
[2021-10-07] MEDS ORDERED: FLU VACC QS2021-22(6MOS UP)/PF 60 MCG/0.5 ML SYRINGE IM ONE (10:00)
[2021-10-07 15:20] LABS: CALCIUM 8.9 mg/dL (8.5-10.1)
[2021-10-07 15:21] LABS: BLOOD UREA NITROGEN 14.7 mg/dL (7-18)
[2021-10-07 15:24] LABS: CREATININE 1.3 mg/dL (0.55-1.3)
[2021-10-07] MEDS: INSULIN SLIDING SCALE (NOVOLOG) 1 VIAL SQ SCH (21:22)
[2021-10-07] MEDS ORDERED: CHLORHEXIDINE GLUCONATE 4% CLEANSER FOR DECOLONIZATION TP SCH (22:00)
[2021-10-08] MEDS: HEPARIN NA (PORCINE) 5,000 UNITS/ML 1ML VIAL SQ SCH ×3 (05:57→22:00)
[2021-10-08] MEDS: INSULIN (LEVEMIR) 100 UNITS/ML UNITS SQ SCH ×2 (06:00→22:01)
[2021-10-08] MEDS: INSULIN SLIDING SCALE (NOVOLOG) 1 VIAL SQ SCH ×4 (06:02→22:00)
[2021-10-08] MEDS: D5-1/2NS+20 MEQ KCL - 20 MEQ/1,000 ML INFUS.BAG IV SCH (06:02)
[2021-10-08 07:30] LABS: BASO % 0.3 % (0-2.0); EOS % 1.5 % (0-4.5); HEMATOCRIT 37.9 % (35.4-49); LYMPH % 18.6 % (8-40); MCH 22.6 pg (25.7-33.7); MCHC 31.7 g/dl (32.0-35.9); MEAN CELL VOLUME 71.5 fl (80-96); MEAN PLT VOLUME 8.5 fl (7.5-11.1); NEUT % 72.6 % (42.8-82.8); PLATELET COUNT 239 10^3/uL (134-434); RBC 5.31 M/mm3 (4.00-5.60); RDW 14.7 % (11.9-15.9); WHITE BLOOD COUNT 9.2 K/mm3 (4.0-10.0)
[2021-10-08 07:48] LABS: BLOOD UREA NITROGEN 10.9 mg/dL (7-18); MAGNESIUM 1.6 mg/dL (1.8-2.4)
[2021-10-08 07:51] LABS: CREATININE 0.9 mg/dL (0.55-1.3); PHOSPHOROUS 1.4 mg/dL (2.5-4.9)
[2021-10-08 07:52] LABS: BILIRUBIN,TOTAL 0.5 mg/dL (0.2-1); TOT PROT 5.2 g/dl (6.4-8.2)
[2021-10-08] MEDS ORDERED: NAPH,MB-DB/K PH,MBDB POWDER PACKET PO ONE (09:00)
[2021-10-08] MEDS ORDERED: MAGNESIUM SULF 50% (8.12 MEQ/2 ML-1 GM VIAL) IVPB ONE (09:00)
[2021-10-08] MEDS ORDERED: POTASSIUM CHLORIDE TABS 20 MEQ TABLET.ER (FP) PO ONE (09:00)
[2021-10-08 09:11] LABS: ALBUMIN 2.7 g/dl (3.4-5.0); CALCIUM 7.3 mg/dL (8.5-10.1)
[2021-10-08] MEDS: MUPIROCIN 2% TOPICAL OINTMENT FOR DECOLONIZATION NS SCH (10:24)
[2021-10-08] MEDS: PANTOPRAZOLE SODIUM 40 MG VIAL IVPUSH SCH (10:25)
[2021-10-08] MEDS ORDERED: INSULIN (NOVOLOG) ASPART 100 UNITS/ML 10ML VIAL ONE (17:36)
[2021-10-08] MEDS ORDERED: PROCHLORPERAZINE INJECTION 10 MG/2 ML VIAL IVPB PRN (20:33)
[2021-10-08] MEDS ORDERED: DEXTROSE 50%-WATER - 25 GM/50 ML VIAL IVPUSH PRN (20:33)
[2021-10-08] MEDS ORDERED: MIRTAZAPINE 15 MG TABLET (FP) PO SCH (22:00)
[2021-10-09] MEDS: HEPARIN NA (PORCINE) 5,000 UNITS/ML 1ML VIAL SQ SCH ×2 (05:23→13:57)
[2021-10-09] MEDS: INSULIN (LEVEMIR) 100 UNITS/ML UNITS SQ SCH (07:09)
[2021-10-09] MEDS: INSULIN SLIDING SCALE (NOVOLOG) 1 VIAL SQ SCH ×2 (07:10→12:10)
[2021-10-09] MEDS ORDERED: PANTOPRAZOLE SODIUM 40 MG VIAL IVPUSH SCH (10:00)
[2021-10-09] MEDS ORDERED: INSULIN (NOVOLOG) ASPART 100 UNITS/ML 10ML VIAL ONE (11:53)
[2021-10-09 12:07] LABS: BASO % 0.4 % (0-2.0); EOS % 3.6 % (0-4.5); HEMATOCRIT 35.8 % (35.4-49); HEMOGLOBIN 11.8 GM/dL (11.7-16.9); LYMPH % 27.5 % (8-40); MCH 23.5 pg (25.7-33.7); MCHC 33.1 g/dl (32.0-35.9); MEAN CELL VOLUME 70.8 fl (80-96); MEAN PLT VOLUME 7.6 fl (7.5-11.1); MONO % 8.8 % (3.8-10.2); NEUT % 59.7 % (42.8-82.8); PLATELET COUNT 211 10^3/uL (134-434); RBC 5.05 M/mm3 (4.00-5.60); RDW 14.7 % (11.9-15.9); WHITE BLOOD COUNT 6.9 K/mm3 (4.0-10.0)
[2021-10-09 12:42] LABS: BLOOD UREA NITROGEN 12.1 mg/dL (7-18)
[2021-10-09 12:45] LABS: CREATININE 0.9 mg/dL (0.55-1.3); PHOSPHOROUS 1.7 mg/dL (2.5-4.9)
[2021-10-09 12:46] LABS: BILIRUBIN,TOTAL 0.8 mg/dL (0.2-1); TOT PROT 6.3 g/dl (6.4-8.2)
[2021-10-09 12:47] LABS: ALBUMIN 3.2 g/dl (3.4-5.0)
[2021-10-09 13:58] VITALS: BP 142/78; PULSE 91; TEMP 99.3
== END 2021-10-09 15:42 | disposition left against medical advice (07) | DRG 420 ==
LOC: JER 16:50 → JERBED 23:34 → JICU 10-07 01:27 → J6S 10-08 15:13
PROVIDERS: ADMIT Internal Medicine Pulmonary Disease; ATTEND Family Medicine
DX: E10.10 Type 1 diabetes mellitus with ketoacidosis without coma (principal); N17.9 Acute kidney failure, unspecified; J45.909 Unspecified asthma, uncomplicated; R11.2 Nausea with vomiting, unspecified; K21.9 Gastro-esophageal reflux disease without esophagitis; M54.9 Dorsalgia, unspecified; K76.0 Fatty (change of) liver, not elsewhere classified; I10 Essential (primary) hypertension; E10.65 Type 1 diabetes mellitus with hyperglycemia; Z91.14 Patient's other noncompliance with medication regimen
CPT/HCPCS: 36415; 71045-TC-FY; 80048; 80053; 81003; 82010; 82803; 82962; 83036; 83735; 84100; 85025; 87086; 90686; 93005; 93010; 99291; C9803; G0008; J1644; U0003; U0005

== ENCOUNTER 2021-10-30 10:19 | Observation (INO) | payer OTHER ==
[2021-10-30] MEDS ORDERED: SODIUM CHLORIDE 0.9% 500 ML INFUS.BAG IV ONE ×2 (10:43→11:56)
[2021-10-30 11:16] LABS: VENOUS BASE EXCESS 1.3 mmol/L (-2-2); VENOUS O2 SATURATION 81.8 % (70-80); VENOUS PCO2 43.9 mmHg (38-52); VENOUS PH 7.398 (7.310-7.410)
[2021-10-30 11:19] LABS: BASO % 0.8 % (0-2.0); EOS % 0.6 % (0-4.5); HEMATOCRIT 43.3 % (35.4-49); HEMOGLOBIN 13.7 GM/dL (11.7-16.9); LYMPH % 20.2 % (8-40); MCHC 31.6 g/dl (32.0-35.9); MEAN CELL VOLUME 72.8 fl (80-96); MEAN PLT VOLUME 7.6 fl (7.5-11.1); MONO % 9.5 % (3.8-10.2); NEUT % 68.9 % (42.8-82.8); PLATELET COUNT 347 10^3/uL (134-434); RBC 5.94 M/mm3 (4.00-5.60); RDW 15.2 % (11.9-15.9); WHITE BLOOD COUNT 10.9 K/mm3 (4.0-10.0)
[2021-10-30 11:44] LABS: CALCIUM 10.3 mg/dL (8.5-10.1)
[2021-10-30 11:45] LABS: ALBUMIN 3.9 g/dl (3.4-5.0); BLOOD UREA NITROGEN 39.9 mg/dL (7-18); MAGNESIUM 2.6 mg/dL (1.8-2.4)
[2021-10-30 11:48] LABS: CREATININE 2.1 mg/dL (0.55-1.3); PHOSPHOROUS 3.2 mg/dL (2.5-4.9)
[2021-10-30 11:49] LABS: BILIRUBIN,TOTAL 0.7 mg/dL (0.2-1); TOT PROT 7.7 g/dl (6.4-8.2)
[2021-10-30] MEDS ORDERED: ACETAMINOPHEN 325 MG TABLET (FP) PO PRN (15:18)
[2021-10-30] MEDS: INSULIN SLIDING SCALE (NOVOLOG) 1 VIAL SQ SCH ×2 (18:18→22:30)
[2021-10-30 18:39] LABS: PH,URINE 5.5 (5.0-8.0); URINE APPEARANCE CLEAR; URINE BILIRUBIN NEGATIVE (NEGATIVE); URINE COLOR YELLOW; URINE GLUCOSE (UA) 3+ (NEGATIVE); URINE KETONE 1+ (NEGATIVE); URINE LEUK ESTERASE NEGATIVE (NEGATIVE); URINE NITRITE NEGATIVE (NEGATIVE); URINE PROTEIN TRACE (NEGATIVE); URINE UROBILINOGEN 0.2 mg/dL (0.2-1.0)
[2021-10-30] MEDS ORDERED: QUEtiapine FUMARATE 100 MG TABLET (FP) ONE (21:47)
[2021-10-30] MEDS ORDERED: GABAPENTIN 100 MG CAPSULE ONE (21:48)
[2021-10-30] MEDS ORDERED: MIRTAZAPINE 15 MG TABLET (FP) ONE (21:48)
[2021-10-30] MEDS ORDERED: HEPARIN NA (PORCINE) 5,000 UNITS/ML 1ML VIAL ONE (21:48)
[2021-10-30] MEDS: HEPARIN NA (PORCINE) 5,000 UNITS/ML 1ML VIAL SQ SCH (22:29)
[2021-10-30] MEDS: GABAPENTIN 300 MG CAPSULE PO SCH (22:29)
[2021-10-30] MEDS: MIRTAZAPINE 15 MG TABLET (FP) PO SCH (22:30)
[2021-10-30] MEDS: QUEtiapine FUMARATE 100 MG TABLET (FP) PO SCH (22:30)
[2021-10-30] MEDS: INSULIN (LEVEMIR) 100 UNITS/ML UNITS SQ SCH (22:55)
[2021-10-31] MEDS ORDERED: GABAPENTIN 100 MG CAPSULE ONE ×2 (06:35→08:27)
[2021-10-31] MEDS: GABAPENTIN 300 MG CAPSULE PO SCH ×3 (07:00→21:30)
[2021-10-31 08:01] LABS: HEMATOCRIT 38.7 % (35.4-49); HEMOGLOBIN 12.2 GM/dL (11.7-16.9); MCH 22.8 pg (25.7-33.7); MCHC 31.4 g/dl (32.0-35.9); MEAN CELL VOLUME 72.6 fl (80-96); MEAN PLT VOLUME 7.4 fl (7.5-11.1); PLATELET COUNT 281 10^3/uL (134-434); RBC 5.33 M/mm3 (4.00-5.60); RDW 15.5 % (11.9-15.9); WHITE BLOOD COUNT 6.5 K/mm3 (4.0-10.0)
[2021-10-31] MEDS: INSULIN SLIDING SCALE (NOVOLOG) 1 VIAL SQ SCH ×4 (08:03→21:44)
[2021-10-31 08:12] LABS: CHLORIDE 106 mmol/L (98-107); SODIUM 142 mmol/L (136-145)
[2021-10-31 08:16] LABS: ANION GAP 7 MMOL/L (8-16); CO2 28 mmol/L (21-32)
[2021-10-31 08:18] LABS: CALCIUM 8.8 mg/dL (8.5-10.1); MAGNESIUM 2.1 mg/dL (1.8-2.4)
[2021-10-31 08:19] LABS: SGPT/ALT 32 U/L (13-61)
[2021-10-31 08:20] LABS: ALBUMIN 3.2 g/dl (3.4-5.0); CREATININE 1.2 mg/dL (0.55-1.3); SGOT/AST 20 U/L (15-37)
[2021-10-31 08:21] LABS: TOT PROT 6.3 g/dl (6.4-8.2)
[2021-10-31 08:23] LABS: CHOLESTEROL 198 mg/dL (50-200); TRIGLYCERIDES 266 mg/dL (0-150)
[2021-10-31 08:24] LABS: BILIRUBIN,TOTAL 1.2 mg/dL (0.2-1); GLUCOSE,RANDOM 49 mg/dL (74-106); LDL CHOLESTEROL (ONLY SJRH) 109 mg/dL (5-100)
[2021-10-31 08:27] LABS: HDL CHOLESTEROL 41 mg/dL (40-60)
[2021-10-31] MEDS ORDERED: amLODIPine BESYLATE 5 MG TABLET (FP) ONE (08:27)
[2021-10-31] MEDS ORDERED: HEPARIN NA (PORCINE) 5,000 UNITS/ML 1ML VIAL ONE (08:27)
[2021-10-31 08:44] LABS: ALK PHOS 102 U/L (45-117)
[2021-10-31] MEDS: INSULIN (LEVEMIR) 100 UNITS/ML UNITS SQ SCH ×2 (09:00→21:43)
[2021-10-31] MEDS: amLODIPine BESYLATE 5 MG TABLET (FP) PO SCH (09:00)
[2021-10-31] MEDS: HEPARIN NA (PORCINE) 5,000 UNITS/ML 1ML VIAL SQ SCH ×2 (09:00→21:30)
[2021-10-31] MEDS ORDERED: POTASSIUM CHLORIDE TABS 20 MEQ TABLET.ER (FP) PO ONE (11:16)
[2021-10-31 12:44] VITALS: BMI 25.2
[2021-10-31] MEDS ORDERED: QUEtiapine FUMARATE 50 MG TABLET ONE (21:06)
[2021-10-31] MEDS: MIRTAZAPINE 15 MG TABLET (FP) PO SCH (21:30)
[2021-10-31] MEDS: QUEtiapine FUMARATE 100 MG TABLET (FP) PO SCH (21:31)
[2021-10-31] MEDS ORDERED: ATORVASTATIN CA 10 MG TABLET (FP) PO SCH (22:00)
[2021-11-01] MEDS ORDERED: LORazepam 0.5 MG TABLET PO ONE (05:25)
[2021-11-01] MEDS: INSULIN SLIDING SCALE (NOVOLOG) 1 VIAL SQ SCH ×2 (06:15→12:11)
[2021-11-01] MEDS: INSULIN (LEVEMIR) 100 UNITS/ML UNITS SQ SCH (06:15)
[2021-11-01] MEDS: GABAPENTIN 300 MG CAPSULE PO SCH (06:15)
[2021-11-01] MEDS ORDERED: LOSARTAN POTASSIUM 50 MG TABLET PO SCH (10:00)
[2021-11-01] MEDS: HEPARIN NA (PORCINE) 5,000 UNITS/ML 1ML VIAL SQ SCH (12:00)
[2021-11-01] MEDS: amLODIPine BESYLATE 5 MG TABLET (FP) PO SCH (12:00)
[2021-11-01 13:21] LABS: CHLORIDE 99 mmol/L (98-107); SODIUM 133 mmol/L (136-145)
[2021-11-01 13:22] LABS: CALCIUM 9.1 mg/dL (8.5-10.1)
[2021-11-01 13:23] LABS: ANION GAP 8 MMOL/L (8-16); BLOOD UREA NITROGEN 18.7 mg/dL (7-18); CO2 26 mmol/L (21-32)
[2021-11-01 13:26] LABS: CREATININE 1.3 mg/dL (0.55-1.3)
[2021-11-01 13:27] LABS: GLUCOSE,RANDOM 446 mg/dL (74-106)
[2021-11-01] MEDS ORDERED: INSULIN (NOVOLOG) ASPART 100 UNITS/ML 10ML VIAL SQ ONE (14:03)
[2021-11-01 14:09] VITALS: BP 118/69; PULSE 87; TEMP 98.9
== END 2021-11-01 14:46 | disposition left against medical advice (07) ==
LOC: JER 10:19 → JERBED 10-31 00:13 → J7W 10-31 11:03
PROVIDERS: ADMIT Family Medicine; ATTEND Family Medicine
PROC: 3E023GC Introduction of Other Therapeutic Substance into Muscle, Percutaneous Approach (ICD-10-PCS; principal; 2021-10-31)
PROC: 3E013VG Introduction of Insulin into Subcutaneous Tissue, Percutaneous Approach (ICD-10-PCS; 2021-10-31)
PROC: 3E0337Z Introduction of Electrolytic and Water Balance Substance into Peripheral Vein, Percutaneous Approach (ICD-10-PCS; 2021-10-31)
DX: E10.22 Type 1 diabetes mellitus with diabetic chronic kidney disease (principal); I13.10 Hypertensive heart and chronic kidney disease without heart failure, with stage 1 through stage 4 chronic kidney disease, or unspecified chronic kidney disease; N18.9 Chronic kidney disease, unspecified; J45.909 Unspecified asthma, uncomplicated; Z79.4 Long term (current) use of insulin; N17.9 Acute kidney failure, unspecified; Z87.891 Personal history of nicotine dependence; K21.9 Gastro-esophageal reflux disease without esophagitis; R80.9 Proteinuria, unspecified; Z29.9 Encounter for prophylactic measures, unspecified; E78.5 Hyperlipidemia, unspecified; T38.3X6A Underdosing of insulin and oral hypoglycemic [antidiabetic] drugs, initial encounter; Y92.009 Unspecified place in unspecified non-institutional (private) residence as the place of occurrence of the external cause
CPT/HCPCS: 36415; 80048; 80053; 80061; 81003; 82010; 82803; 82962; 83036; 83735; 84100; 85025; 85027; 93005; 93010; 96372; 99285-25; C9803; G0378; J1644; U0003; U0005

== ENCOUNTER 2021-11-10 10:22 | Inpatient (IN) | payer OTHER ==
[2021-11-10] MEDS ORDERED: SODIUM CHLORIDE 0.9% 500 ML INFUS.BAG IV ONE (10:50)
[2021-11-10 11:47] LABS: VENOUS O2 SATURATION 86.6 % (70-80); VENOUS PCO2 32.9 mmHg (38-52)
[2021-11-10 11:50] LABS: BASO % 1.3 % (0-2.0); EOS % 2.4 % (0-4.5); HEMATOCRIT 41.9 % (35.4-49); HEMOGLOBIN 13.3 GM/dL (11.7-16.9); LYMPH % 20.4 % (8-40); MCH 23.7 pg (25.7-33.7); MCHC 31.7 g/dl (32.0-35.9); MEAN CELL VOLUME 74.9 fl (80-96); MONO % 7.6 % (3.8-10.2); NEUT % 68.3 % (42.8-82.8); PLATELET COUNT 343 10^3/uL (134-434); RBC 5.59 M/mm3 (4.00-5.60); VENOUS PH 7.184 (7.310-7.410); WHITE BLOOD COUNT 8.2 K/mm3 (4.0-10.0)
[2021-11-10 12:07] LABS: CHLORIDE 93 mmol/L (98-107); SODIUM 131 mmol/L (136-145)
[2021-11-10 12:10] LABS: ANION GAP 26 MMOL/L (8-16); BLOOD UREA NITROGEN 28.8 mg/dL (7-18); CO2 12 mmol/L (21-32); MAGNESIUM 2.6 mg/dL (1.8-2.4)
[2021-11-10 12:13] LABS: CREATININE 1.7 mg/dL (0.55-1.3); PHOSPHOROUS 5.2 mg/dL (2.5-4.9); SGOT/AST 19 U/L (15-37); SGPT/ALT 36 U/L (13-61)
[2021-11-10 12:14] LABS: BILIRUBIN,TOTAL 0.8 mg/dL (0.2-1); TOT PROT 8.2 g/dl (6.4-8.2)
[2021-11-10] MEDS ORDERED: INSULIN REGULAR HUMAN 100 UNITS/ML *VIAL* (FOR IVP) IVPUSH ONE (12:34)
[2021-11-10 12:36] LABS: ALBUMIN 4.3 g/dl (3.4-5.0); ALK PHOS 167 U/L (45-117); GLUCOSE,RANDOM 554 mg/dL (74-106)
[2021-11-10] MEDS ORDERED: INSULIN REGULAR HUMAN 100 UNITS/ML *VIAL IVPUSH ONE (12:38)
[2021-11-10] MEDS ORDERED: INSULIN REGULAR 100 UNITS in SODIUM CHLORIDE 99 ML IVPB SCH ×2 (12:45→18:01)
[2021-11-10] MEDS ORDERED: INSULIN REGULAR HUMAN 100 UNITS/ML *VIAL ONE ×2 (12:52→13:46)
[2021-11-10] MEDS ORDERED: LACTATED RINGERS SOLUTION 1,000 ML/1,000 ML INFUS.BAG IV SCH (13:00)
[2021-11-10 13:14] LABS: URINE APPEARANCE CLEAR; URINE BILIRUBIN NEGATIVE (NEGATIVE); URINE COLOR YELLOW; URINE GLUCOSE (UA) 3+ (NEGATIVE); URINE KETONE 3+ (NEGATIVE); URINE LEUK ESTERASE NEGATIVE (NEGATIVE); URINE NITRITE NEGATIVE (NEGATIVE); URINE PROTEIN NEGATIVE (NEGATIVE); URINE UROBILINOGEN 0.2 mg/dL (0.2-1.0)
[2021-11-10 14:45] LABS: CHLORIDE 99 mmol/L (98-107); SODIUM 136 mmol/L (136-145)
[2021-11-10 14:46] LABS: CALCIUM 9.6 mg/dL (8.5-10.1)
[2021-11-10 14:47] LABS: ANION GAP 24 MMOL/L (8-16); BLOOD UREA NITROGEN 29.3 mg/dL (7-18); CO2 14 mmol/L (21-32)
[2021-11-10 14:50] LABS: CREATININE 1.7 mg/dL (0.55-1.3)
[2021-11-10 14:59] LABS: GLUCOSE,RANDOM 456 mg/dL (74-106)
[2021-11-10 16:48] VITALS: BMI 24.7
[2021-11-10 17:59] LABS: ARTERIAL BLD GAS O2 SATURATION 97.3 % (95-98); ARTERIAL BLOOD GAS BASE EXCESS -7.3 mmol/L (-2-2); ARTERIAL BLOOD GAS PO2 98.7 mmHg (80-100); ARTERIAL BLOOD GAS pH 7.345 (7.350-7.450)
[2021-11-10 18:00] LABS: ALLENS TEST POSITIVE
[2021-11-10] MEDS ORDERED: DEXTROSE IVPB SCH (18:00)
[2021-11-10] MEDS ORDERED: POTASSIUM PHOSPHATE IVPB SCH (18:00)
[2021-11-10] MEDS ORDERED: [UNRECOGNIZED DRUG - OTHER] IVPB SCH (18:00)
[2021-11-10] MEDS: DEXTROSE 5%-0.45% SALINE 995 ML with POTASSIUM CHLORIDE 10 MEQ IV SCH (18:08)
[2021-11-10] MEDS ORDERED: DEXTROSE 5%-0.45% SALINE 995 ML with POTASSIUM CHLORIDE 10 MEQ IV SCH (18:15)
[2021-11-10 18:25] LABS: BLOOD UREA NITROGEN 28.9 mg/dL (7-18); CALCIUM 9.2 mg/dL (8.5-10.1)
[2021-11-10 18:26] LABS: MAGNESIUM 2.1 mg/dL (1.8-2.4)
[2021-11-10 18:29] LABS: CREATININE 1.5 mg/dL (0.55-1.3); PHOSPHOROUS 3.2 mg/dL (2.5-4.9)
[2021-11-10] MEDS ORDERED: KCL 10 MEQ IVPB 10 MEQ/100 ML INFUS.BAG IVPB SCH (19:00)
[2021-11-10] MEDS: INSULIN (LEVEMIR) 100 UNITS/ML UNITS SQ SCH (20:00)
[2021-11-10] MEDS: INSULIN SLIDING SCALE (NOVOLOG) 1 VIAL SQ SCH ×3 (21:30→22:06)
[2021-11-10] MEDS ORDERED: INSULIN (LEVEMIR) 100 UNITS/ML UNITS SQ SCH (22:00)
[2021-11-10 22:21] LABS: BLOOD UREA NITROGEN 22.9 mg/dL (7-18); CALCIUM 8.8 mg/dL (8.5-10.1)
[2021-11-10 22:24] LABS: CREATININE 1.4 mg/dL (0.55-1.3)
[2021-11-11] MEDS: DEXTROSE 5%-0.45% SALINE 995 ML with POTASSIUM CHLORIDE 10 MEQ IV SCH (01:00)
[2021-11-11] MEDS: INSULIN SLIDING SCALE (NOVOLOG) 1 VIAL SQ SCH ×6 (01:48→21:08)
[2021-11-11] MEDS: INSULIN (LEVEMIR) 100 UNITS/ML UNITS SQ SCH ×2 (06:21→21:08)
[2021-11-11 07:03] LABS: BASO % 0.8 % (0-2.0); EOS % 2.8 % (0-4.5); HEMATOCRIT 35.4 % (35.4-49); HEMOGLOBIN 11.8 GM/dL (11.7-16.9); LYMPH % 27.1 % (8-40); MCH 23.9 pg (25.7-33.7); MCHC 33.4 g/dl (32.0-35.9); MEAN CELL VOLUME 71.6 fl (80-96); MEAN PLT VOLUME 7.3 fl (7.5-11.1); MONO % 10.1 % (3.8-10.2); NEUT % 59.2 % (42.8-82.8); PLATELET COUNT 295 10^3/uL (134-434); RBC 4.94 M/mm3 (4.00-5.60); RDW 15.3 % (11.9-15.9); WHITE BLOOD COUNT 8.1 K/mm3 (4.0-10.0)
[2021-11-11 08:04] LABS: BLOOD UREA NITROGEN 16.1 mg/dL (7-18); CALCIUM 8.8 mg/dL (8.5-10.1)
[2021-11-11] MEDS: LOSARTAN POTASSIUM 50 MG TABLET PO SCH (09:13)
[2021-11-11] MEDS: FAMOTIDINE 20 MG TABLET PO SCH (09:13)
[2021-11-11] MEDS: amLODIPine BESYLATE 5 MG TABLET (FP) PO SCH (09:13)
[2021-11-11] MEDS ORDERED: INSULIN (LEVEMIR) 100 UNITS/ML UNITS SQ ONE (09:19)
[2021-11-11] MEDS: BUDESONIDE/FORMETEROL FUMARATE 160/4.5 mcg INHALER IH SCH ×2 (10:55→21:13)
[2021-11-11] MEDS ORDERED: DEXTROSE 50%-WATER 25 GM/50 ML DISP.SYRIN ONE (12:45)
[2021-11-11] MEDS: GABAPENTIN 300 MG CAPSULE PO SCH ×2 (13:28→21:08)
[2021-11-11 19:10] LABS: SARS-CoV-2 NAA Not Detected (Not Detected)
[2021-11-12] MEDS: INSULIN SLIDING SCALE (NOVOLOG) 1 VIAL SQ SCH ×4 (01:07→14:18)
[2021-11-12 06:27] VITALS: TEMP 98.3
[2021-11-12] MEDS: GABAPENTIN 300 MG CAPSULE PO SCH ×2 (06:36→14:22)
[2021-11-12] MEDS: INSULIN (LEVEMIR) 100 UNITS/ML UNITS SQ SCH ×2 (06:36→10:39)
[2021-11-12] MEDS: LOSARTAN POTASSIUM 50 MG TABLET PO SCH (10:09)
[2021-11-12] MEDS: FAMOTIDINE 20 MG TABLET PO SCH (10:09)
[2021-11-12] MEDS: amLODIPine BESYLATE 5 MG TABLET (FP) PO SCH (10:10)
[2021-11-12] MEDS: BUDESONIDE/FORMETEROL FUMARATE 160/4.5 mcg INHALER IH SCH (10:11)
[2021-11-12] MEDS ORDERED: LOSARTAN POTASSIUM 50 MG TABLET PO SCH (11:41)
[2021-11-12 15:00] VITALS: BP 114/75; PULSE 96
== END 2021-11-12 15:03 | disposition home or self-care (01) | DRG 420 ==
LOC: JER 10:22 → JERBED 12:50 → JICU 16:52
PROVIDERS: ADMIT Internal Medicine Pulmonary Disease; ATTEND Internal Medicine Pulmonary Disease
DX: E10.10 Type 1 diabetes mellitus with ketoacidosis without coma (principal); N17.9 Acute kidney failure, unspecified; N28.1 Cyst of kidney, acquired; E86.0 Dehydration; E87.6 Hypokalemia; J45.909 Unspecified asthma, uncomplicated; K21.9 Gastro-esophageal reflux disease without esophagitis; N18.9 Chronic kidney disease, unspecified; R80.9 Proteinuria, unspecified; I10 Essential (primary) hypertension; Z91.14 Patient's other noncompliance with medication regimen
CPT/HCPCS: 36415; 36600; 71045-TC-FY; 80048; 80053; 81003; 82010; 82803; 82962; 83735; 84100; 85025; 87086; 93005; 93010; 99291; 99292; C9803; U0003; U0005

== ENCOUNTER 2021-12-06 10:54 | Emergency (ER) | payer OTHER ==
[2021-12-06 11:12] VITALS: TEMP 98.8; BMI 26.7
[2021-12-06] MEDS ORDERED: SODIUM CHLORIDE 0.9% 500 ML INFUS.BAG IV ONE ×2 (11:26→13:02)
[2021-12-06 11:58] LABS: HEMATOCRIT 35.9 % (35.4-49); HEMOGLOBIN 11.6 GM/dL (11.7-16.9); MCH 23.3 pg (25.7-33.7); MCHC 32.2 g/dl (32.0-35.9); MEAN CELL VOLUME 72.4 fl (80-96); MEAN PLT VOLUME 7.8 fl (7.5-11.1); NEUT % 65.3 % (42.8-82.8); PLATELET COUNT 240 10^3/uL (134-434); RBC 4.95 M/mm3 (4.00-5.60); RDW 15.8 % (11.9-15.9); VENOUS BASE EXCESS -1.4 mmol/L (-2-2); VENOUS O2 SATURATION 50.3 % (70-80); VENOUS PCO2 48.6 mmHg (38-52); VENOUS PH 7.329 (7.310-7.410); WHITE BLOOD COUNT 6.9 K/mm3 (4.0-10.0)
[2021-12-06 11:59] LABS: BASO % 0.7 % (0-2.0); EOS % 4.4 % (0-4.5); LYMPH % 22.5 % (8-40); MONO % 7.1 % (3.8-10.2)
[2021-12-06 12:22] LABS: ALBUMIN 3.7 g/dl (3.4-5.0); CALCIUM 9.3 mg/dL (8.5-10.1); MAGNESIUM 2.1 mg/dL (1.8-2.4)
[2021-12-06 12:23] LABS: BLOOD UREA NITROGEN 12.4 mg/dL (7-18)
[2021-12-06 12:25] LABS: CREATININE 1.2 mg/dL (0.55-1.3)
[2021-12-06 12:27] LABS: BILIRUBIN,TOTAL 0.7 mg/dL (0.2-1)
[2021-12-06 13:36] LABS: PH,URINE 6.5 (5.0-8.0); URINE APPEARANCE CLEAR; URINE BILIRUBIN NEGATIVE (NEGATIVE); URINE COLOR YELLOW; URINE GLUCOSE (UA) 3+ (NEGATIVE); URINE KETONE 1+ (NEGATIVE); URINE LEUK ESTERASE NEGATIVE (NEGATIVE); URINE NITRITE NEGATIVE (NEGATIVE); URINE PROTEIN NEGATIVE (NEGATIVE); URINE UROBILINOGEN 0.2 mg/dL (0.2-1.0)
[2021-12-06 14:14] VITALS: BP 148/94; PULSE 88
== END 2021-12-06 14:32 | disposition home or self-care (01) ==
LOC: JER 10:54
DX: R73.9 Hyperglycemia, unspecified (principal); F19.920 Other psychoactive substance use, unspecified with intoxication, uncomplicated
CPT/HCPCS: 36415; 70450-TC; 71045-TC-FY; 80053; 81003; 82010; 82803; 82962; 83735; 85025; 87086; 93005; 93010; 99285-25

== ENCOUNTER 2021-12-19 17:53 | Inpatient (IN) | payer OTHER ==
[2021-12-19] MEDS ORDERED: SODIUM CHLORIDE 0.9% 500 ML INFUS.BAG IV ONE ×2 (18:23→19:10)
[2021-12-19] MEDS ORDERED: ONDANSETRON 4 MG/2 ML VIAL IVPUSH ONE (18:23)
[2021-12-19] MEDS ORDERED: ONDANSETRON 4 MG/2 ML VIAL ONE (18:36)
[2021-12-19 18:49] LABS: VENOUS O2 SATURATION 87.5 % (70-80); VENOUS PCO2 38.2 mmHg (38-52); VENOUS PH 7.324 (7.310-7.410)
[2021-12-19 18:52] LABS: BASO % 0.9 % (0-2.0); EOS % 2.2 % (0-4.5); HEMATOCRIT 37.7 % (35.4-49); HEMOGLOBIN 11.7 GM/dL (11.7-16.9); LYMPH % 13.6 % (8-40); MCH 23.1 pg (25.7-33.7); MCHC 31.1 g/dl (32.0-35.9); MEAN CELL VOLUME 74.5 fl (80-96); MEAN PLT VOLUME 8.3 fl (7.5-11.1); MONO % 6.1 % (3.8-10.2); NEUT % 77.2 % (42.8-82.8); PLATELET COUNT 243 10^3/uL (134-434); RBC 5.06 M/mm3 (4.00-5.60); RDW 15.7 % (11.9-15.9); WHITE BLOOD COUNT 6.4 K/mm3 (4.0-10.0)
[2021-12-19 19:10] LABS: CHLORIDE 86 mmol/L (98-107); SODIUM 122 mmol/L (136-145)
[2021-12-19 19:13] LABS: ALBUMIN 3.5 g/dl (3.4-5.0); ANION GAP 16 MMOL/L (8-16); BLOOD UREA NITROGEN 24.7 mg/dL (7-18); CALCIUM 9.4 mg/dL (8.5-10.1); CO2 21 mmol/L (21-32); LIPASE 168 U/L (73-393)
[2021-12-19 19:16] LABS: CREATININE 1.7 mg/dL (0.55-1.3); SGOT/AST 29 U/L (15-37); SGPT/ALT 46 U/L (13-61)
[2021-12-19 19:17] LABS: BILIRUBIN,TOTAL 0.4 mg/dL (0.2-1); TOT PROT 7.2 g/dl (6.4-8.2)
[2021-12-19 19:19] LABS: ALK PHOS 145 U/L (45-117)
[2021-12-19 19:27] LABS: GLUCOSE,RANDOM 973 mg/dL (74-106)
[2021-12-19] MEDS ORDERED: INSULIN (NOVOLOG) ASPART 100 UNITS/ML 10ML VIAL SQ ONE ×2 (19:32→20:38)
[2021-12-19] MEDS ORDERED: SODIUM CHLORIDE 1,000 ML IV STA ×2 (20:30→21:02)
[2021-12-19] MEDS ORDERED: ACETAMINOPHEN 325 MG TABLET (FP) PO PRN (21:16)
[2021-12-19] MEDS ORDERED: ONDANSETRON 4 MG/2 ML VIAL IVPUSH PRN (21:18)
[2021-12-19] MEDS: INSULIN SLIDING SCALE (NOVOLOG) 1 VIAL SQ SCH (22:00)
[2021-12-19] MEDS: SODIUM CHLORIDE 1,000 ML IV SCH (22:34)
[2021-12-20 00:03] LABS: ALBUMIN 3.2 g/dl (3.4-5.0); CALCIUM 8.7 mg/dL (8.5-10.1)
[2021-12-20 00:04] LABS: BLOOD UREA NITROGEN 16.4 mg/dL (7-18)
[2021-12-20 00:07] LABS: CREATININE 1.1 mg/dL (0.55-1.3)
[2021-12-20 00:08] LABS: BILIRUBIN,TOTAL 0.3 mg/dL (0.2-1); TOT PROT 6.6 g/dl (6.4-8.2)
[2021-12-20] MEDS ORDERED: POTASSIUM CHLORIDE TABS 20 MEQ TABLET.ER (FP) PO ONE ×2 (00:55→03:23)
[2021-12-20] MEDS: HEPARIN NA (PORCINE) 5,000 UNITS/ML 1ML VIAL SQ SCH ×5 (03:00→21:30)
[2021-12-20] MEDS: ATORVASTATIN CA 10 MG TABLET (FP) PO SCH ×2 (03:00→21:32)
[2021-12-20] MEDS ORDERED: ATORVASTATIN CA 10 MG TABLET (FP) ONE (03:23)
[2021-12-20] MEDS ORDERED: INSULIN (NOVOLOG MIX 70/30) 100 UNITS/ML MDV SQ SCH (07:00)
[2021-12-20] MEDS ORDERED: INSULIN (NOVOLOG MIX 70/30) 100 UNITS/ML MDV SQ ONE (08:10)
[2021-12-20] MEDS: INSULIN SLIDING SCALE (NOVOLOG) 1 VIAL SQ SCH ×4 (08:19→21:32)
[2021-12-20 08:30] LABS: EOS % 5.6 % (0-4.5); HEMATOCRIT 38.3 % (35.4-49); HEMOGLOBIN 12.3 GM/dL (11.7-16.9); LYMPH % 32.8 % (8-40); MCH 23.4 pg (25.7-33.7); MCHC 32.2 g/dl (32.0-35.9); MEAN CELL VOLUME 72.7 fl (80-96); MEAN PLT VOLUME 8.1 fl (7.5-11.1); MONO % 6.4 % (3.8-10.2); NEUT % 54.2 % (42.8-82.8); PLATELET COUNT 263 10^3/uL (134-434); RBC 5.27 M/mm3 (4.00-5.60); RDW 15.7 % (11.9-15.9); WHITE BLOOD COUNT 7.1 K/mm3 (4.0-10.0)
[2021-12-20 08:44] LABS: CHLORIDE 100 mmol/L (98-107); SODIUM 134 mmol/L (136-145)
[2021-12-20 08:47] LABS: ALBUMIN 3.3 g/dl (3.4-5.0); ANION GAP 10 MMOL/L (8-16); BLOOD UREA NITROGEN 15.5 mg/dL (7-18); CO2 25 mmol/L (21-32)
[2021-12-20 08:50] LABS: CREATININE 1.1 mg/dL (0.55-1.3); PHOSPHOROUS 3.8 mg/dL (2.5-4.9)
[2021-12-20 08:51] LABS: SGOT/AST 30 U/L (15-37); SGPT/ALT 43 U/L (13-61)
[2021-12-20 08:52] LABS: BILIRUBIN,TOTAL 0.6 mg/dL (0.2-1)
[2021-12-20 08:53] LABS: ALK PHOS 141 U/L (45-117); GLUCOSE,RANDOM 500 mg/dL (74-106)
[2021-12-20 09:01] LABS: URINE APPEARANCE CLEAR; URINE BILIRUBIN NEGATIVE (NEGATIVE); URINE COLOR YELLOW; URINE GLUCOSE (UA) 3+ (NEGATIVE); URINE KETONE 1+ (NEGATIVE); URINE LEUK ESTERASE NEGATIVE (NEGATIVE); URINE NITRITE NEGATIVE (NEGATIVE); URINE PROTEIN NEGATIVE (NEGATIVE); URINE UROBILINOGEN 0.2 mg/dL (0.2-1.0)
[2021-12-20] MEDS ORDERED: PANTOPRAZOLE 40 MG TABLET ONE (09:34)
[2021-12-20] MEDS ORDERED: amLODIPine BESYLATE 10 MG TABLET (FP) ONE (09:34)
[2021-12-20] MEDS: PANTOPRAZOLE 40 MG TABLET PO SCH (09:41)
[2021-12-20] MEDS: amLODIPine BESYLATE 10 MG TABLET (FP) PO SCH (09:41)
[2021-12-20] MEDS: SODIUM CHLORIDE 1,000 ML IV SCH (11:52)
[2021-12-20 16:01] VITALS: BMI 26.9
[2021-12-20] MEDS ORDERED: INSULIN (LEVEMIR) 100 UNITS/ML UNITS SQ SCH (22:00)
[2021-12-20] MEDS ORDERED: MELATONIN 5 MG TABLETS PO ONE (22:44)
[2021-12-21] MEDS: INSULIN SLIDING SCALE (NOVOLOG) 1 VIAL SQ SCH ×3 (06:12→16:55)
[2021-12-21] MEDS: HEPARIN NA (PORCINE) 5,000 UNITS/ML 1ML VIAL SQ SCH ×2 (06:12→13:20)
[2021-12-21] MEDS ORDERED: INSULIN (LEVEMIR) 100 UNITS/ML UNITS SQ SCH (07:00)
[2021-12-21] MEDS: amLODIPine BESYLATE 10 MG TABLET (FP) PO SCH (10:08)
[2021-12-21] MEDS: PANTOPRAZOLE 40 MG TABLET PO SCH (10:08)
[2021-12-21 11:07] LABS: BASO % 1.2 % (0-2.0); EOS % 7.1 % (0-4.5); HEMATOCRIT 35.5 % (35.4-49); HEMOGLOBIN 11.5 GM/dL (11.7-16.9); LYMPH % 33.5 % (8-40); MCH 23.4 pg (25.7-33.7); MCHC 32.5 g/dl (32.0-35.9); MEAN PLT VOLUME 7.7 fl (7.5-11.1); NEUT % 52.2 % (42.8-82.8); PLATELET COUNT 243 10^3/uL (134-434); RBC 4.94 M/mm3 (4.00-5.60); RDW 15.3 % (11.9-15.9); WHITE BLOOD COUNT 5.2 K/mm3 (4.0-10.0)
[2021-12-21 11:33] LABS: CALCIUM 8.9 mg/dL (8.5-10.1)
[2021-12-21 11:34] LABS: BLOOD UREA NITROGEN 15.4 mg/dL (7-18); MAGNESIUM 1.8 mg/dL (1.8-2.4)
[2021-12-21 11:37] LABS: PHOSPHOROUS 3.1 mg/dL (2.5-4.9)
[2021-12-21 11:38] LABS: CREATININE 0.9 mg/dL (0.55-1.3)
[2021-12-21 18:54] VITALS: BP 115/58; PULSE 80; TEMP 98.2
== END 2021-12-21 19:31 | disposition home or self-care (01) | DRG 420 ==
LOC: JER 17:53 → JERBED 20:07 → J5S 12-20 10:38
PROVIDERS: ADMIT Internal Medicine; ATTEND Internal Medicine
DX: E10.65 Type 1 diabetes mellitus with hyperglycemia (principal); N17.9 Acute kidney failure, unspecified; N28.1 Cyst of kidney, acquired; K76.0 Fatty (change of) liver, not elsewhere classified; D64.9 Anemia, unspecified; E78.5 Hyperlipidemia, unspecified; I10 Essential (primary) hypertension; J45.909 Unspecified asthma, uncomplicated; K21.9 Gastro-esophageal reflux disease without esophagitis; R35.0 Frequency of micturition; Z91.19 Patient's noncompliance with other medical treatment and regimen; E86.0 Dehydration; Z79.4 Long term (current) use of insulin
CPT/HCPCS: 36415; 71045-TC-FY; 80048; 80053; 81003; 82010; 82803; 82962; 83036; 83690; 83735; 84100; 84484; 85025; 90853; 93005; 93010; 99285-25; C9803-CS; J1644; U0003; U0005

== ENCOUNTER 2022-01-09 16:58 | Inpatient (IN) | payer OTHER ==
[2022-01-09] MEDS ORDERED: SODIUM CHLORIDE 1,000 ML IV STA (17:20)
[2022-01-09] MEDS ORDERED: METOCLOPRAMIDE HCL INJECTION 10 MG/2 ML VIAL IVPUSH STA (17:20)
[2022-01-09] MEDS ORDERED: ONDANSETRON 4 MG/2 ML VIAL IVPUSH ONE (17:31)
[2022-01-09] MEDS ORDERED: ONDANSETRON 4 MG/2 ML VIAL ONE (17:42)
[2022-01-09 18:29] LABS: VENOUS BASE EXCESS -9.6 mmol/L (-2-2); VENOUS O2 SATURATION 97.9 % (70-80); VENOUS PCO2 28.6 mmHg (38-52); VENOUS PH 7.328 (7.310-7.410)
[2022-01-09] MEDS ORDERED: SODIUM CHLORIDE 0.9% 500 ML INFUS.BAG IV ONE ×2 (18:37→19:22)
[2022-01-09 18:38] LABS: BASO % 0.2 % (0-2.0); HEMATOCRIT 46.2 % (35.4-49); HEMOGLOBIN 14.9 GM/dL (11.7-16.9); LYMPH % 4.4 % (8-40); MCH 23.3 pg (25.7-33.7); MCHC 32.4 g/dl (32.0-35.9); MEAN PLT VOLUME 7.8 fl (7.5-11.1); NEUT % 92.4 % (42.8-82.8); PLATELET COUNT 358 10^3/uL (134-434); RBC 6.41 M/mm3 (4.00-5.60); RDW 15.1 % (11.9-15.9); WHITE BLOOD COUNT 13.5 K/mm3 (4.0-10.0)
[2022-01-09 18:40] LABS: INR 0.92 (0.83-1.09); PROTHROMBIN TIME (PATIENT) 10.6 SEC (9.7-13.0)
[2022-01-09 18:43] LABS: ACTIVATED PTT 22.3 SECONDS (25.2-36.5)
[2022-01-09 19:06] LABS: LACTIC ACID 3.5 mmol/L (0.4-2.0)
[2022-01-09 19:08] LABS: CHLORIDE 91 mmol/L (98-107); SODIUM 132 mmol/L (136-145)
[2022-01-09 19:11] LABS: ALBUMIN 4.3 g/dl (3.4-5.0); ANION GAP 25 MMOL/L (8-16); BLOOD UREA NITROGEN 52.9 mg/dL (7-18); CALCIUM 10.4 mg/dL (8.5-10.1); CO2 17 mmol/L (21-32)
[2022-01-09 19:12] LABS: ANISOCYTOSIS 2+; MACROCYTOSIS 0
[2022-01-09 19:14] LABS: CREATININE 2.5 mg/dL (0.55-1.3); SGOT/AST 17 U/L (15-37); SGPT/ALT 38 U/L (13-61)
[2022-01-09 19:15] LABS: BILIRUBIN,TOTAL 0.9 mg/dL (0.2-1)
[2022-01-09 19:16] LABS: TOT PROT 8.6 g/dl (6.4-8.2)
[2022-01-09 19:17] LABS: ALK PHOS 184 U/L (45-117)
[2022-01-09] MEDS ORDERED: POTASSIUM CHLORIDE 20 MEQ PREMIX IVPB 100 ML IVPB ONE (19:23)
[2022-01-09 19:25] LABS: GLUCOSE,RANDOM 405 mg/dL (74-106)
[2022-01-09] MEDS ORDERED: INSULIN REGULAR HUMAN 100 UNITS/ML *VIAL SQ ONE (19:28)
[2022-01-09] MEDS ORDERED: KCL 10 MEQ IVPB 20 MEQ/200 ML INFUS.BAG IVPB ONE (19:32)
[2022-01-09 20:10] LABS: URINE APPEARANCE CLEAR; URINE BILIRUBIN NEGATIVE (NEGATIVE); URINE COLOR YELLOW; URINE GLUCOSE (UA) 3+ (NEGATIVE); URINE KETONE 4+ (NEGATIVE); URINE LEUK ESTERASE NEGATIVE (NEGATIVE); URINE NITRITE NEGATIVE (NEGATIVE); URINE PROTEIN NEGATIVE (NEGATIVE); URINE UROBILINOGEN 0.2 mg/dL (0.2-1.0)
[2022-01-09 22:32] LABS: VENOUS BASE EXCESS -9.1 mmol/L (-2-2); VENOUS O2 SATURATION 87.6 % (70-80); VENOUS PH 7.306 (7.310-7.410)
[2022-01-09 22:57] LABS: ALBUMIN 3.6 g/dl (3.4-5.0); BLOOD UREA NITROGEN 40.8 mg/dL (7-18)
[2022-01-09 23:01] LABS: CREATININE 1.9 mg/dL (0.55-1.3)
[2022-01-09 23:02] LABS: BILIRUBIN,TOTAL 0.6 mg/dL (0.2-1); TOT PROT 7.1 g/dl (6.4-8.2)
[2022-01-09 23:12] LABS: CALCIUM 8.8 mg/dL (8.5-10.1)
[2022-01-10] MEDS ORDERED: INSULIN REGULAR HUMAN 100 UNITS/ML *VIAL SQ ONE (00:25)
[2022-01-10 03:00] LABS: BLOOD UREA NITROGEN 32.3 mg/dL (7-18); CALCIUM 8.4 mg/dL (8.5-10.1)
[2022-01-10 03:04] LABS: CREATININE 1.6 mg/dL (0.55-1.3)
[2022-01-10] MEDS ORDERED: INSULIN (LEVEMIR) 100 UNITS/ML UNITS SQ ONE (03:26)
[2022-01-10] MEDS: HEPARIN NA (PORCINE) 5,000 UNITS/ML 1ML VIAL SQ SCH ×3 (06:51→22:34)
[2022-01-10] MEDS: INSULIN SLIDING SCALE (NOVOLOG) 1 VIAL SQ SCH ×4 (06:51→22:34)
[2022-01-10 08:09] VITALS: BMI 25.4
[2022-01-10] MEDS: PANTOPRAZOLE 40 MG TABLET PO SCH (09:48)
[2022-01-10] MEDS: SODIUM CHLORIDE 1,000 ML IV SCH (09:48)
[2022-01-10] MEDS: amLODIPine BESYLATE 5 MG TABLET (FP) PO SCH (09:48)
[2022-01-10 10:49] LABS: BASO % 0.4 % (0-2.0); EOS % 0.3 % (0-4.5); HEMATOCRIT 34.8 % (35.4-49); HEMOGLOBIN 11.6 GM/dL (11.7-16.9); LYMPH % 11.1 % (8-40); MCH 23.6 pg (25.7-33.7); MCHC 33.2 g/dl (32.0-35.9); MEAN CELL VOLUME 71.2 fl (80-96); MEAN PLT VOLUME 7.1 fl (7.5-11.1); MONO % 10.4 % (3.8-10.2); NEUT % 77.8 % (42.8-82.8); PLATELET COUNT 265 10^3/uL (134-434); RBC 4.89 M/mm3 (4.00-5.60); RDW 15.1 % (11.9-15.9); WHITE BLOOD COUNT 11.4 K/mm3 (4.0-10.0)
[2022-01-10 11:44] LABS: CALCIUM 8.7 mg/dL (8.5-10.1)
[2022-01-10 11:45] LABS: ALBUMIN 3.2 g/dl (3.4-5.0); BLOOD UREA NITROGEN 22.7 mg/dL (7-18)
[2022-01-10 11:48] LABS: CREATININE 1.3 mg/dL (0.55-1.3); PHOSPHOROUS 1.9 mg/dL (2.5-4.9)
[2022-01-10 11:49] LABS: BILIRUBIN,TOTAL 0.9 mg/dL (0.2-1); TOT PROT 6.2 g/dl (6.4-8.2)
[2022-01-10 11:59] LABS: MAGNESIUM 2.3 mg/dL (1.8-2.4)
[2022-01-10] MEDS ORDERED: POTASSIUM PHOSPHATE 30 MM in SODIUM CHLORIDE 500 ML IVPB ONE (12:12)
[2022-01-10] MEDS ORDERED: POTASSIUM CHLORIDE TABS 20 MEQ TABLET.ER (FP) PO ONE (12:12)
[2022-01-10] MEDS ORDERED: ALBUTEROL SO4 HFA INHALER IH PRN (18:00)
[2022-01-10] MEDS ORDERED: ATORVASTATIN CA 10 MG TABLET (FP) PO SCH (22:00)
[2022-01-10] MEDS ORDERED: MIRTAZAPINE 30 MG TABLET PO SCH (22:00)
[2022-01-10] MEDS: INSULIN (LEVEMIR) 100 UNITS/ML UNITS SQ SCH (22:34)
[2022-01-10] MEDS: BUDESONIDE/FORMETEROL FUMARATE 160/4.5 mcg INHALER IH SCH (22:35)
[2022-01-11] MEDS: SODIUM CHLORIDE 1,000 ML IV SCH ×2 (04:03→13:22)
[2022-01-11] MEDS: HEPARIN NA (PORCINE) 5,000 UNITS/ML 1ML VIAL SQ SCH ×2 (06:06→13:24)
[2022-01-11] MEDS: INSULIN SLIDING SCALE (NOVOLOG) 1 VIAL SQ SCH ×2 (06:06→11:14)
[2022-01-11] MEDS ORDERED: INSULIN (LEVEMIR) 100 UNITS/ML UNITS SQ SCH (10:04)
[2022-01-11] MEDS: amLODIPine BESYLATE 5 MG TABLET (FP) PO SCH (10:09)
[2022-01-11] MEDS: PANTOPRAZOLE 40 MG TABLET PO SCH (10:09)
[2022-01-11] MEDS: BUDESONIDE/FORMETEROL FUMARATE 160/4.5 mcg INHALER IH SCH (10:11)
[2022-01-11] MEDS: INSULIN (LEVEMIR) 100 UNITS/ML UNITS SQ SCH (11:16)
[2022-01-11 15:15] VITALS: BP 122/78; PULSE 87; TEMP 98.8
== END 2022-01-11 15:51 | disposition home or self-care (01) | DRG 420 ==
LOC: JER 16:58 → JERBED 21:39 → J5S 01-10 06:23
PROVIDERS: ADMIT Hospitalist; ATTEND Internal Medicine
DX: E11.10 Type 2 diabetes mellitus with ketoacidosis without coma (principal); N17.9 Acute kidney failure, unspecified; I10 Essential (primary) hypertension; K21.9 Gastro-esophageal reflux disease without esophagitis; K76.0 Fatty (change of) liver, not elsewhere classified; E78.5 Hyperlipidemia, unspecified; J45.909 Unspecified asthma, uncomplicated; M54.9 Dorsalgia, unspecified; R94.31 Abnormal electrocardiogram [ECG] [EKG]; E87.6 Hypokalemia
CPT/HCPCS: 36415; 71045-TC-FY; 80048; 80053; 81003; 82010; 82803; 82962; 83605; 83690; 83735; 84100; 84484; 85025; 85610; 85730; 93005; 93010; 99284-25; C9803-CS; J1644; U0003; U0005

== ENCOUNTER 2022-01-17 23:02 | Inpatient (IN) | payer OTHER ==
[2022-01-18 00:36] LABS: BASO % 0.5 % (0-2.0); EOS % 2.9 % (0-4.5); HEMOGLOBIN 10.7 GM/dL (11.7-16.9); LYMPH % 18.3 % (8-40); MCH 23.7 pg (25.7-33.7); MCHC 32.4 g/dl (32.0-35.9); MEAN CELL VOLUME 73.2 fl (80-96); MEAN PLT VOLUME 7.8 fl (7.5-11.1); NEUT % 65.3 % (42.8-82.8); PLATELET COUNT 288 10^3/uL (134-434); RBC 4.51 M/mm3 (4.00-5.60); RDW 14.9 % (11.9-15.9); WHITE BLOOD COUNT 9.1 K/mm3 (4.0-10.0)
[2022-01-18 00:53] LABS: INR 0.92 (0.83-1.09); PROTHROMBIN TIME (PATIENT) 10.6 SEC (9.7-13.0)
[2022-01-18 00:56] LABS: ACTIVATED PTT 25.6 SECONDS (25.2-36.5)
[2022-01-18] MEDS ORDERED: SODIUM CHLORIDE 0.9% 500 ML INFUS.BAG IV ONE (00:56)
[2022-01-18 00:57] LABS: CHLORIDE 101 mmol/L (98-107); SODIUM 135 mmol/L (136-145)
[2022-01-18 00:59] LABS: CALCIUM 8.7 mg/dL (8.5-10.1)
[2022-01-18 01:00] LABS: ALBUMIN 3.2 g/dl (3.4-5.0); ANION GAP 8 MMOL/L (8-16); BLOOD UREA NITROGEN 19.4 mg/dL (7-18); CO2 26 mmol/L (21-32); LIPASE 152 U/L (73-393)
[2022-01-18 01:03] LABS: CREATININE 1.2 mg/dL (0.55-1.3); SGOT/AST 38 U/L (15-37); SGPT/ALT 75 U/L (13-61)
[2022-01-18 01:04] LABS: BILIRUBIN,TOTAL 0.3 mg/dL (0.2-1); TOT PROT 6.2 g/dl (6.4-8.2)
[2022-01-18 01:37] LABS: URINE APPEARANCE CLEAR; URINE BILIRUBIN NEGATIVE (NEGATIVE); URINE COLOR YELLOW; URINE GLUCOSE (UA) 3+ (NEGATIVE); URINE KETONE NEGATIVE (NEGATIVE); URINE LEUK ESTERASE NEGATIVE (NEGATIVE); URINE NITRITE NEGATIVE (NEGATIVE); URINE PROTEIN NEGATIVE (NEGATIVE); URINE UROBILINOGEN 0.2 mg/dL (0.2-1.0)
[2022-01-18 01:40] LABS: VENOUS BASE EXCESS -0.5 mmol/L (-2-2); VENOUS PCO2 43.6 mmHg (38-52); VENOUS PH 7.374 (7.310-7.410)
[2022-01-18 01:42] LABS: ALK PHOS 154 U/L (45-117); GLUCOSE,RANDOM 603 mg/dL (74-106)
[2022-01-18] MEDS ORDERED: INSULIN REGULAR HUMAN 100 UNITS/ML *VIAL SQ ONE (03:05)
[2022-01-18] MEDS: SODIUM CHLORIDE 1,000 ML IV SCH ×2 (07:45→19:08)
[2022-01-18 08:07] LABS: BASO % 0.9 % (0-2.0); EOS % 3.1 % (0-4.5); HEMATOCRIT 34.6 % (35.4-49); HEMOGLOBIN 11.3 GM/dL (11.7-16.9); LYMPH % 16.8 % (8-40); MCH 23.6 pg (25.7-33.7); MCHC 32.6 g/dl (32.0-35.9); MEAN CELL VOLUME 72.3 fl (80-96); MEAN PLT VOLUME 7.3 fl (7.5-11.1); MONO % 13.5 % (3.8-10.2); NEUT % 65.7 % (42.8-82.8); PLATELET COUNT 287 10^3/uL (134-434); RBC 4.78 M/mm3 (4.00-5.60); RDW 14.7 % (11.9-15.9); WHITE BLOOD COUNT 8.4 K/mm3 (4.0-10.0)
[2022-01-18 08:54] LABS: CALCIUM 9.2 mg/dL (8.5-10.1)
[2022-01-18 08:55] LABS: ALBUMIN 3.2 g/dl (3.4-5.0); BLOOD UREA NITROGEN 13.9 mg/dL (7-18); MAGNESIUM 2.2 mg/dL (1.8-2.4)
[2022-01-18 08:58] LABS: CREATININE 0.9 mg/dL (0.55-1.3); PHOSPHOROUS 3.3 mg/dL (2.5-4.9)
[2022-01-18 08:59] LABS: BILIRUBIN,TOTAL 0.4 mg/dL (0.2-1); TOT PROT 6.5 g/dl (6.4-8.2)
[2022-01-18 09:03] LABS: RETICULOCYTES 2.01 % (0.5-1.5)
[2022-01-18] MEDS: INSULIN SLIDING SCALE (NOVOLOG) 1 VIAL SQ SCH ×4 (09:17→21:46)
[2022-01-18] MEDS ORDERED: ENOXAPARIN NA (PORCINE) 40 MG/0.4 ML DISP.SYRIN SQ ONE (09:25)
[2022-01-18] MEDS ORDERED: PANTOPRAZOLE 40 MG TABLET PO ONE (09:25)
[2022-01-18] MEDS ORDERED: INSULIN (LEVEMIR) 100 UNITS/ML UNITS SQ ONE (09:27)
[2022-01-18] MEDS: INSULIN (LEVEMIR) 100 UNITS/ML UNITS SQ SCH ×2 (09:55→21:45)
[2022-01-18] MEDS: PANTOPRAZOLE 40 MG TABLET PO SCH (09:55)
[2022-01-18] MEDS: ENOXAPARIN NA (PORCINE) 40 MG/0.4 ML DISP.SYRIN SQ SCH (09:55)
[2022-01-18] MEDS ORDERED: PATIENT'S OWN MEDICATION (NON-FORMULARY) (Insulin Glargine,Hum.Rec.Anlog [Basaglar Kwikpen SQ SCH (10:00)
[2022-01-18 16:51] VITALS: BMI 26.2
[2022-01-18] MEDS ORDERED: BENZOCAINE/MENTH/CETYLPYRD CL 1 EACH LOZENGE MM PRN (18:07)
[2022-01-18] MEDS ORDERED: ALBUTEROL SO4 HFA INHALER IH PRN (19:00)
[2022-01-18] MEDS ORDERED: INSULIN (NOVOLOG) ASPART 100 UNITS/ML 10ML VIAL ONE (21:43)
[2022-01-18] MEDS: QUEtiapine FUMARATE 50 MG TABLET PO SCH (21:45)
[2022-01-18] MEDS: MIRTAZAPINE 15 MG TABLET (FP) PO SCH (21:45)
[2022-01-18] MEDS: GABAPENTIN 300 MG CAPSULE PO SCH (21:45)
[2022-01-18] MEDS: BUDESONIDE/FORMETEROL FUMARATE 160/4.5 mcg INHALER IH SCH (21:50)
[2022-01-18] MEDS ORDERED: ATORVASTATIN CA 10 MG TABLET (FP) PO SCH (22:00)
[2022-01-18] MEDS ORDERED: guaiFENesin/D-M SUGAR-FREE/ACLHOL-FREE 118 ML BOTTLE PO ONE (22:02)
[2022-01-18] MEDS ORDERED: ACETAMINOPHEN 500 MG TABLET (FP) PO ONE (22:03)
[2022-01-19] MEDS: GABAPENTIN 300 MG CAPSULE PO SCH ×3 (05:43→21:48)
[2022-01-19] MEDS: SODIUM CHLORIDE 1,000 ML IV SCH (05:43)
[2022-01-19] MEDS: INSULIN SLIDING SCALE (NOVOLOG) 1 VIAL SQ SCH ×4 (06:24→21:54)
[2022-01-19 08:38] LABS: BASO % 0.6 % (0-2.0); EOS % 3.8 % (0-4.5); HEMOGLOBIN 10.7 GM/dL (11.7-16.9); MCH 23.2 pg (25.7-33.7); MCHC 31.5 g/dl (32.0-35.9); MEAN CELL VOLUME 73.7 fl (80-96); MEAN PLT VOLUME 7.8 fl (7.5-11.1); MONO % 13.9 % (3.8-10.2); NEUT % 60.7 % (42.8-82.8); PLATELET COUNT 297 10^3/uL (134-434); RBC 4.61 M/mm3 (4.00-5.60); RDW 15.1 % (11.9-15.9); WHITE BLOOD COUNT 8.8 K/mm3 (4.0-10.0)
[2022-01-19 09:10] LABS: ALBUMIN 2.8 g/dl (3.4-5.0)
[2022-01-19 09:11] LABS: BLOOD UREA NITROGEN 9.4 mg/dL (7-18)
[2022-01-19 09:14] LABS: CREATININE 0.9 mg/dL (0.55-1.3)
[2022-01-19 09:15] LABS: BILIRUBIN,TOTAL 0.4 mg/dL (0.2-1); TOT PROT 5.9 g/dl (6.4-8.2)
[2022-01-19] MEDS ORDERED: BENZOCAINE/MENTHOL 1 EACH LOZENGE MM PRN (11:04)
[2022-01-19] MEDS ORDERED: INSULIN (NOVOLOG) ASPART 100 UNITS/ML 10ML VIAL ONE (12:44)
[2022-01-19] MEDS: INSULIN (LEVEMIR) 100 UNITS/ML UNITS SQ SCH ×2 (12:45→21:50)
[2022-01-19] MEDS: LOSARTAN POTASSIUM 50 MG TABLET PO SCH (12:45)
[2022-01-19] MEDS: ENOXAPARIN NA (PORCINE) 40 MG/0.4 ML DISP.SYRIN SQ SCH (12:45)
[2022-01-19] MEDS: PANTOPRAZOLE 40 MG TABLET PO SCH (12:47)
[2022-01-19] MEDS: BUDESONIDE/FORMETEROL FUMARATE 160/4.5 mcg INHALER IH SCH ×2 (12:48→21:50)
[2022-01-19] MEDS ORDERED: INSULIN (LEVEMIR) 100 UNITS/ML UNITS SQ ONE ×2 (20:56→22:15)
[2022-01-19] MEDS: MIRTAZAPINE 15 MG TABLET (FP) PO SCH (21:48)
[2022-01-19] MEDS: QUEtiapine FUMARATE 50 MG TABLET PO SCH (21:49)
[2022-01-20] MEDS: SODIUM CHLORIDE 1,000 ML IV SCH ×3 (06:15→16:27)
[2022-01-20] MEDS: GABAPENTIN 300 MG CAPSULE PO SCH ×3 (06:16→21:25)
[2022-01-20] MEDS: INSULIN (LEVEMIR) 100 UNITS/ML UNITS SQ SCH (06:22)
[2022-01-20] MEDS: INSULIN SLIDING SCALE (NOVOLOG) 1 VIAL SQ SCH ×4 (06:23→21:29)
[2022-01-20] MEDS: LOSARTAN POTASSIUM 50 MG TABLET PO SCH (10:43)
[2022-01-20] MEDS: PANTOPRAZOLE 40 MG TABLET PO SCH (10:43)
[2022-01-20] MEDS: BUDESONIDE/FORMETEROL FUMARATE 160/4.5 mcg INHALER IH SCH ×2 (10:43→21:30)
[2022-01-20] MEDS: ENOXAPARIN NA (PORCINE) 40 MG/0.4 ML DISP.SYRIN SQ SCH (10:43)
[2022-01-20] MEDS ORDERED: INSULIN (LEVEMIR) 100 UNITS/ML UNITS SQ ONE (21:01)
[2022-01-20] MEDS ORDERED: INSULIN (NOVOLOG) ASPART 100 UNITS/ML 10ML VIAL ONE (21:02)
[2022-01-20] MEDS: MIRTAZAPINE 15 MG TABLET (FP) PO SCH (21:24)
[2022-01-20] MEDS: QUEtiapine FUMARATE 50 MG TABLET PO SCH (21:25)
[2022-01-20] MEDS ORDERED: INSULIN (LEVEMIR) 100 UNITS/ML UNITS SQ SCH (22:00)
[2022-01-21] MEDS: SODIUM CHLORIDE 1,000 ML IV SCH (03:39)
[2022-01-21] MEDS: GABAPENTIN 300 MG CAPSULE PO SCH ×2 (06:10→15:02)
[2022-01-21] MEDS: INSULIN (LEVEMIR) 100 UNITS/ML UNITS SQ SCH (06:11)
[2022-01-21] MEDS: INSULIN SLIDING SCALE (NOVOLOG) 1 VIAL SQ SCH ×2 (06:12→11:07)
[2022-01-21] MEDS ORDERED: INSULIN REGULAR HUMAN 100 UNITS/ML *VIAL IVPUSH ONE (08:40)
[2022-01-21] MEDS ORDERED: INSULIN (NOVOLOG) ASPART 100 UNITS/ML 10ML VIAL SQ ONE (09:00)
[2022-01-21 09:04] LABS: BASO % 0.9 % (0-2.0); HEMATOCRIT 34.6 % (35.4-49); HEMOGLOBIN 10.8 GM/dL (11.7-16.9); LYMPH % 27.2 % (8-40); MCHC 31.3 g/dl (32.0-35.9); MEAN CELL VOLUME 73.4 fl (80-96); MEAN PLT VOLUME 7.6 fl (7.5-11.1); MONO % 11.8 % (3.8-10.2); NEUT % 55.1 % (42.8-82.8); PLATELET COUNT 310 10^3/uL (134-434); RBC 4.71 M/mm3 (4.00-5.60); RDW 14.8 % (11.9-15.9); WHITE BLOOD COUNT 6.9 K/mm3 (4.0-10.0)
[2022-01-21 09:34] LABS: ALBUMIN 2.7 g/dl (3.4-5.0); BLOOD UREA NITROGEN 18.4 mg/dL (7-18); CALCIUM 9.4 mg/dL (8.5-10.1); MAGNESIUM 2.1 mg/dL (1.8-2.4)
[2022-01-21 09:36] LABS: PHOSPHOROUS 3.1 mg/dL (2.5-4.9)
[2022-01-21 09:37] LABS: CREATININE 0.8 mg/dL (0.55-1.3)
[2022-01-21 09:38] LABS: BILIRUBIN,TOTAL 0.2 mg/dL (0.2-1); TOT PROT 6.3 g/dl (6.4-8.2)
[2022-01-21] MEDS ORDERED: guaiFENesin 200 MG/10 ML 10 ML UNIT-DOSE CUPS PO ONE (10:05)
[2022-01-21] MEDS: ENOXAPARIN NA (PORCINE) 40 MG/0.4 ML DISP.SYRIN SQ SCH (10:55)
[2022-01-21] MEDS: PANTOPRAZOLE 40 MG TABLET PO SCH (10:56)
[2022-01-21] MEDS: LOSARTAN POTASSIUM 50 MG TABLET PO SCH (10:57)
[2022-01-21] MEDS: BUDESONIDE/FORMETEROL FUMARATE 160/4.5 mcg INHALER IH SCH (10:57)
[2022-01-21 14:08] VITALS: BP 119/63; PULSE 97; TEMP 98.9
== END 2022-01-21 15:02 | disposition home or self-care (01) | DRG 420 ==
LOC: JER 23:02 → JERBED 01-18 02:54 → J7W 01-18 11:35
PROVIDERS: ADMIT Hospitalist; ATTEND Internal Medicine
DX: E10.65 Type 1 diabetes mellitus with hyperglycemia (principal); I10 Essential (primary) hypertension; R74.01 Elevation of levels of liver transaminase levels; D50.9 Iron deficiency anemia, unspecified; K21.9 Gastro-esophageal reflux disease without esophagitis; E78.5 Hyperlipidemia, unspecified; J45.909 Unspecified asthma, uncomplicated; M54.9 Dorsalgia, unspecified; R05.9 Cough, unspecified; K29.70 Gastritis, unspecified, without bleeding; J02.8 Acute pharyngitis due to other specified organisms; Z79.4 Long term (current) use of insulin; R07.81 Pleurodynia; K76.0 Fatty (change of) liver, not elsewhere classified; I45.10 Unspecified right bundle-branch block; F17.200 Nicotine dependence, unspecified, uncomplicated
CPT/HCPCS: 0241U-QW; 36415; 71045-TC-FY; 76705-TC; 80053; 81003; 82010; 82728; 82803; 82962; 83540; 83550; 83690; 83735; 83930; 84100; 84484; 85025; 85045; 85610; 85730; 86704; 87040; 87086; 87517; 87522; 90853; 93005; 93010; 99285-25

== ENCOUNTER 2022-02-14 22:49 | Inpatient (IN) | payer OTHER ==
[2022-02-14] MEDS ORDERED: LACTATED RINGERS SOLUTION 1,000 ML/1,000 ML INFUS.BAG IV STA (23:21)
[2022-02-14] MEDS ORDERED: ONDANSETRON 4 MG/2 ML VIAL IVPUSH ONE (23:42)
[2022-02-14] MEDS ORDERED: ONDANSETRON 4 MG/2 ML VIAL ONE (23:42)
[2022-02-14 23:53] LABS: VENOUS BASE EXCESS -19.3 mmol/L (-2-2); VENOUS O2 SATURATION 87.6 % (70-80); VENOUS PCO2 21.5 mmHg (38-52)
[2022-02-14 23:59] LABS: VENOUS PH 7.156 (7.310-7.410)
[2022-02-15 00:05] LABS: HEMOGLOBIN 14.1 GM/dL (11.7-16.9); MCH 23.4 pg (25.7-33.7); MCHC 30.1 g/dl (32.0-35.9); MEAN CELL VOLUME 77.6 fl (80-96); PLATELET COUNT 339 10^3/uL (134-434); RBC 6.04 M/mm3 (4.00-5.60); RDW 15.2 % (11.9-15.9); WHITE BLOOD COUNT 19.4 K/mm3 (4.0-10.0)
[2022-02-15 00:16] LABS: CHLORIDE 86 mmol/L (98-107); SODIUM 129 mmol/L (136-145)
[2022-02-15 00:19] LABS: ANION GAP 33 MMOL/L (8-16); CALCIUM 9.9 mg/dL (8.5-10.1); CO2 9 mmol/L (21-32)
[2022-02-15 00:20] LABS: ALBUMIN 4.4 g/dl (3.4-5.0); BLOOD UREA NITROGEN 35.6 mg/dL (7-18); MAGNESIUM 2.4 mg/dL (1.8-2.4)
[2022-02-15 00:22] LABS: SGPT/ALT 52 U/L (13-61)
[2022-02-15 00:23] LABS: CREATININE 2.5 mg/dL (0.55-1.3); PHOSPHOROUS 7.5 mg/dL (2.5-4.9); SGOT/AST 26 U/L (15-37)
[2022-02-15 00:24] LABS: BILIRUBIN,TOTAL 0.9 mg/dL (0.2-1); TOT PROT 9.1 g/dl (6.4-8.2)
[2022-02-15 00:25] LABS: ALK PHOS 188 U/L (45-117)
[2022-02-15] MEDS ORDERED: LACTATED RINGERS SOLUTION 1000 ML INFUS.BAG IV ONE (00:26)
[2022-02-15] MEDS ORDERED: SODIUM CHLORIDE 0.45%/POT 20 MEQ/1,000 ML INFUS.BAG IV SCH (00:30)
[2022-02-15 00:32] LABS: GLUCOSE,RANDOM 589 mg/dL (74-106); LACTIC ACID 3.8 mmol/L (0.4-2.0)
[2022-02-15] MEDS ORDERED: INSULIN REGULAR 100 UNITS in SODIUM CHLORIDE 99 ML IVPB SCH (00:45)
[2022-02-15 00:48] LABS: HEMATOCRIT 46.8 % (35.4-49)
[2022-02-15] MEDS ORDERED: PROCHLORPERAZINE INJECTION 10 MG/2 ML VIAL IVPB PRN (01:43)
[2022-02-15] MEDS ORDERED: hydrALAZINE HCL 20 MG/ML VIAL IM ONE (02:08)
[2022-02-15 02:26] LABS: URINE APPEARANCE CLEAR; URINE BILIRUBIN NEGATIVE (NEGATIVE); URINE COLOR YELLOW; URINE GLUCOSE (UA) 3+ (NEGATIVE); URINE KETONE 4+ (NEGATIVE); URINE LEUK ESTERASE NEGATIVE (NEGATIVE); URINE NITRITE NEGATIVE (NEGATIVE); URINE PROTEIN NEGATIVE (NEGATIVE); URINE UROBILINOGEN 0.2 mg/dL (0.2-1.0)
[2022-02-15 02:48] LABS: ANISOCYTOSIS 2+; MACROCYTOSIS 0; OVALOCYTE 1+; TEAR DROP CELLS 1+
[2022-02-15] MEDS ORDERED: D5-LR+20 MEQ KCL - 20 MEQ/1,000 ML INFUS.BAG IV SCH (04:15)
[2022-02-15] MEDS: MUPIROCIN 2% TOPICAL OINTMENT FOR DECOLONIZATION NS SCH ×3 (04:26→21:19)
[2022-02-15] MEDS: HEPARIN NA (PORCINE) 5,000 UNITS/ML 1ML VIAL SQ SCH ×3 (05:07→21:19)
[2022-02-15] MEDS ORDERED: DEXTROSE 5%-NORMAL SALINE 1,000 ML IV SCH (05:30)
[2022-02-15] MEDS ORDERED: D5-NS + 20 MEQ KCL - 20 MEQ/1,000 ML INFUS.BAG IV SCH (05:30)
[2022-02-15 05:59] LABS: BASO % 0.2 % (0-2.0); EOS % 0.1 % (0-4.5); HEMATOCRIT 40.5 % (35.4-49); HEMOGLOBIN 12.9 GM/dL (11.7-16.9); MCH 23.5 pg (25.7-33.7); MCHC 31.8 g/dl (32.0-35.9); MEAN CELL VOLUME 73.7 fl (80-96); MEAN PLT VOLUME 7.6 fl (7.5-11.1); MONO % 7.2 % (3.8-10.2); NEUT % 85.5 % (42.8-82.8); PLATELET COUNT 296 10^3/uL (134-434); RDW 14.8 % (11.9-15.9); WHITE BLOOD COUNT 17.5 K/mm3 (4.0-10.0)
[2022-02-15 06:19] LABS: BLOOD UREA NITROGEN 35.2 mg/dL (7-18); MAGNESIUM 2.1 mg/dL (1.8-2.4)
[2022-02-15 06:20] LABS: ALBUMIN 3.7 g/dl (3.4-5.0)
[2022-02-15 06:22] LABS: PHOSPHOROUS 2.6 mg/dL (2.5-4.9)
[2022-02-15 06:24] LABS: BILIRUBIN,TOTAL 0.8 mg/dL (0.2-1); CREATININE 2.1 mg/dL (0.55-1.3); TOT PROT 7.6 g/dl (6.4-8.2)
[2022-02-15] MEDS ORDERED: DEXTROSE 5%-NORMAL SALINE 995 ML with POTASSIUM CHLORIDE 10 MEQ IV SCH (06:27)
[2022-02-15 06:40] LABS: CALCIUM 8.9 mg/dL (8.5-10.1)
[2022-02-15] MEDS ORDERED: POTASSIUM CHLORIDE 10 MEQ in DEXTROSE 5%-NORMAL SALINE 1,000 ML IV SCH ×3 (09:00)
[2022-02-15] MEDS ORDERED: PATIENT'S OWN MEDICATION (NON-FORMULARY) (Albuterol Sulfate [Proair Respiclick] 90 MCG Aer IH SCH (10:00)
[2022-02-15] MEDS: BUDESONIDE/FORMETEROL FUMARATE 160/4.5 mcg INHALER IH SCH ×2 (10:19→22:00)
[2022-02-15 10:54] LABS: BLOOD UREA NITROGEN 33.7 mg/dL (7-18)
[2022-02-15] MEDS ORDERED: INSULIN (LEVEMIR) 100 UNITS/ML UNITS SQ ONE (11:15)
[2022-02-15] MEDS ORDERED: DEXTROSE 5%-0.45% SALINE 1,000 ML IV SCH (11:15)
[2022-02-15 15:52] LABS: BLOOD UREA NITROGEN 29.5 mg/dL (7-18)
[2022-02-15 15:55] LABS: CREATININE 1.8 mg/dL (0.55-1.3)
[2022-02-15] MEDS: INSULIN SLIDING SCALE (NOVOLOG) 1 VIAL SQ SCH ×2 (17:12→22:26)
[2022-02-15] MEDS: SODIUM CHLORIDE 0.45% 1,000 ML IV SCH (17:12)
[2022-02-15] MEDS ORDERED: hydrALAZINE HCL 20 MG/ML VIAL IVPUSH ONE (20:16)
[2022-02-15] MEDS: GABAPENTIN 300 MG CAPSULE PO SCH (21:18)
[2022-02-15] MEDS: QUEtiapine FUMARATE 100 MG TABLET (FP) PO SCH (21:19)
[2022-02-15] MEDS: MIRTAZAPINE 15 MG TABLET (FP) PO SCH (21:19)
[2022-02-15] MEDS: CHLORHEXIDINE GLUCONATE 4% CLEANSER FOR DECOLONIZATION TP SCH (21:19)
[2022-02-15 21:52] LABS: BLOOD UREA NITROGEN 23.2 mg/dL (7-18)
[2022-02-15 21:55] LABS: CREATININE 1.5 mg/dL (0.55-1.3)
[2022-02-15] MEDS: INSULIN (LEVEMIR) 100 UNITS/ML UNITS SQ SCH (22:27)
[2022-02-16] MEDS ORDERED: hydrALAZINE HCL 20 MG/ML VIAL IVPUSH ONE (01:26)
[2022-02-16 03:32] LABS: BLOOD UREA NITROGEN 17.4 mg/dL (7-18); CALCIUM 8.8 mg/dL (8.5-10.1)
[2022-02-16 03:35] LABS: CREATININE 1.4 mg/dL (0.55-1.3)
[2022-02-16] MEDS ORDERED: NIFEdipine E.R. 30 MG TABLET PO SCH ×2 (05:42→10:00)
[2022-02-16] MEDS: HEPARIN NA (PORCINE) 5,000 UNITS/ML 1ML VIAL SQ SCH ×4 (05:49→21:43)
[2022-02-16] MEDS: GABAPENTIN 300 MG CAPSULE PO SCH ×3 (05:49→21:43)
[2022-02-16] MEDS: INSULIN (LEVEMIR) 100 UNITS/ML UNITS SQ SCH ×2 (06:47→21:43)
[2022-02-16] MEDS: INSULIN SLIDING SCALE (NOVOLOG) 1 VIAL SQ SCH ×4 (07:00→21:42)
[2022-02-16] MEDS ORDERED: NIFEdipine E.R. 30 MG TABLET PO ONE (07:00)
[2022-02-16] MEDS: NIFEdipine E.R. 30 MG TABLET PO SCH (07:36)
[2022-02-16] MEDS: MUPIROCIN 2% TOPICAL OINTMENT FOR DECOLONIZATION NS SCH ×2 (09:15→22:00)
[2022-02-16] MEDS: FAMOTIDINE 20 MG TABLET PO SCH (09:15)
[2022-02-16] MEDS: BUDESONIDE/FORMETEROL FUMARATE 160/4.5 mcg INHALER IH SCH ×2 (10:35→21:43)
[2022-02-16 12:43] LABS: BASO % 0.2 % (0-2.0); EOS % 0.2 % (0-4.5); HEMATOCRIT 37.9 % (35.4-49); HEMOGLOBIN 12.1 GM/dL (11.7-16.9); LYMPH % 14.4 % (8-40); MCH 22.9 pg (25.7-33.7); MCHC 31.9 g/dl (32.0-35.9); MEAN CELL VOLUME 71.8 fl (80-96); MEAN PLT VOLUME 6.9 fl (7.5-11.1); MONO % 8.3 % (3.8-10.2); NEUT % 76.9 % (42.8-82.8); PLATELET COUNT 232 10^3/uL (134-434); RBC 5.28 M/mm3 (4.00-5.60); RDW 14.7 % (11.9-15.9)
[2022-02-16 13:01] LABS: CALCIUM 9.1 mg/dL (8.5-10.1)
[2022-02-16 13:02] LABS: ALBUMIN 3.2 g/dl (3.4-5.0); BLOOD UREA NITROGEN 14.1 mg/dL (7-18)
[2022-02-16 13:05] LABS: CREATININE 1.2 mg/dL (0.55-1.3); PHOSPHOROUS 2.2 mg/dL (2.5-4.9)
[2022-02-16 13:07] LABS: BILIRUBIN,TOTAL 0.6 mg/dL (0.2-1); TOT PROT 6.6 g/dl (6.4-8.2)
[2022-02-16] MEDS: SODIUM CHLORIDE 0.45% 1,000 ML IV SCH ×2 (16:42→21:56)
[2022-02-16] MEDS ORDERED: POTASSIUM CHLORIDE TABS 20 MEQ TABLET.ER (FP) PO ONE (20:30)
[2022-02-16] MEDS: MIRTAZAPINE 15 MG TABLET (FP) PO SCH (21:42)
[2022-02-16] MEDS: QUEtiapine FUMARATE 100 MG TABLET (FP) PO SCH (21:43)
[2022-02-16] MEDS: CHLORHEXIDINE GLUCONATE 4% CLEANSER FOR DECOLONIZATION TP SCH (21:43)
[2022-02-17] MEDS: HEPARIN NA (PORCINE) 5,000 UNITS/ML 1ML VIAL SQ SCH ×3 (06:08→21:17)
[2022-02-17] MEDS: NIFEdipine E.R. 30 MG TABLET PO SCH (06:08)
[2022-02-17] MEDS: GABAPENTIN 300 MG CAPSULE PO SCH ×3 (06:08→21:15)
[2022-02-17] MEDS: INSULIN SLIDING SCALE (NOVOLOG) 1 VIAL SQ SCH ×4 (06:09→21:23)
[2022-02-17] MEDS: INSULIN (LEVEMIR) 100 UNITS/ML UNITS SQ SCH ×2 (06:10→21:22)
[2022-02-17] MEDS ORDERED: NIFEdipine E.R. 30 MG TABLET PO SCH (07:00)
[2022-02-17] MEDS: BUDESONIDE/FORMETEROL FUMARATE 160/4.5 mcg INHALER IH SCH ×2 (09:52→22:40)
[2022-02-17] MEDS: MUPIROCIN 2% TOPICAL OINTMENT FOR DECOLONIZATION NS SCH ×2 (09:52→21:21)
[2022-02-17] MEDS: FAMOTIDINE 20 MG TABLET PO SCH (09:52)
[2022-02-17 12:22] LABS: BASO % 0.8 % (0-2.0); EOS % 1.2 % (0-4.5); HEMATOCRIT 35.6 % (35.4-49); HEMOGLOBIN 11.4 GM/dL (11.7-16.9); LYMPH % 27.2 % (8-40); MCH 23.2 pg (25.7-33.7); MEAN CELL VOLUME 72.4 fl (80-96); MEAN PLT VOLUME 7.4 fl (7.5-11.1); MONO % 8.6 % (3.8-10.2); NEUT % 62.2 % (42.8-82.8); PLATELET COUNT 218 10^3/uL (134-434); RBC 4.92 M/mm3 (4.00-5.60); RDW 14.6 % (11.9-15.9); WHITE BLOOD COUNT 5.8 K/mm3 (4.0-10.0)
[2022-02-17 12:42] LABS: ALBUMIN 2.9 g/dl (3.4-5.0); CALCIUM 8.9 mg/dL (8.5-10.1); MAGNESIUM 2.1 mg/dL (1.8-2.4)
[2022-02-17 12:43] LABS: BLOOD UREA NITROGEN 13.4 mg/dL (7-18)
[2022-02-17 12:45] LABS: CREATININE 0.9 mg/dL (0.55-1.3)
[2022-02-17 12:47] LABS: BILIRUBIN,TOTAL 0.4 mg/dL (0.2-1); TOT PROT 5.9 g/dl (6.4-8.2)
[2022-02-17 15:51] VITALS: BMI 26.2
[2022-02-17] MEDS: SODIUM CHLORIDE 0.45% 1,000 ML IV SCH (17:09)
[2022-02-17] MEDS: MIRTAZAPINE 15 MG TABLET (FP) PO SCH (21:15)
[2022-02-17] MEDS: QUEtiapine FUMARATE 100 MG TABLET (FP) PO SCH (21:15)
[2022-02-17] MEDS: CHLORHEXIDINE GLUCONATE 4% CLEANSER FOR DECOLONIZATION TP SCH (21:21)
[2022-02-18] MEDS: HEPARIN NA (PORCINE) 5,000 UNITS/ML 1ML VIAL SQ SCH ×2 (05:40→15:00)
[2022-02-18] MEDS: GABAPENTIN 300 MG CAPSULE PO SCH ×2 (05:41→15:00)
[2022-02-18] MEDS: NIFEdipine E.R. 30 MG TABLET PO SCH (06:22)
[2022-02-18] MEDS: INSULIN SLIDING SCALE (NOVOLOG) 1 VIAL SQ SCH ×2 (06:22→12:30)
[2022-02-18] MEDS: INSULIN (LEVEMIR) 100 UNITS/ML UNITS SQ SCH (06:22)
[2022-02-18] MEDS ORDERED: INSULIN (LEVEMIR) 100 UNITS/ML UNITS SQ SCH (10:09)
[2022-02-18] MEDS: FAMOTIDINE 20 MG TABLET PO SCH (10:45)
[2022-02-18] MEDS: BUDESONIDE/FORMETEROL FUMARATE 160/4.5 mcg INHALER IH SCH (10:45)
[2022-02-18] MEDS: MUPIROCIN 2% TOPICAL OINTMENT FOR DECOLONIZATION NS SCH (11:19)
[2022-02-18 17:22] VITALS: BP 132/93; PULSE 90; TEMP 97.9
== END 2022-02-18 17:00 | disposition left against medical advice (07) | DRG 420 ==
LOC: JER 22:49 → JERBED 02-15 01:33 → JICU 02-15 02:21
PROVIDERS: ADMIT Internal Medicine Pulmonary Disease
DX: E10.10 Type 1 diabetes mellitus with ketoacidosis without coma (principal); N17.9 Acute kidney failure, unspecified; K76.0 Fatty (change of) liver, not elsewhere classified; D64.9 Anemia, unspecified; D72.829 Elevated white blood cell count, unspecified; E78.5 Hyperlipidemia, unspecified; I10 Essential (primary) hypertension; J45.909 Unspecified asthma, uncomplicated; K21.9 Gastro-esophageal reflux disease without esophagitis; N28.1 Cyst of kidney, acquired; E87.6 Hypokalemia; Z91.14 Patient's other noncompliance with medication regimen; R94.31 Abnormal electrocardiogram [ECG] [EKG]
CPT/HCPCS: 0241U-QW; 36415; 71045-TC-FY; 76775-TC; 80048; 80053; 81003; 82010; 82803; 82962; 83036; 83605; 83735; 84100; 84484; 85025; 87040; 87086; 93005; 93010; 99285-25; J1644; J3480

== ENCOUNTER 2022-02-28 23:57 | Inpatient (IN) | payer OTHER ==
[2022-03-01] MEDS ORDERED: SODIUM CHLORIDE 0.9% 500 ML INFUS.BAG IV ONE (00:10)
[2022-03-01 01:05] LABS: HEMATOCRIT 47.3 % (35.4-49); HEMOGLOBIN 14.9 GM/dL (11.7-16.9); MCH 22.9 pg (25.7-33.7); MCHC 31.6 g/dl (32.0-35.9); MEAN CELL VOLUME 72.7 fl (80-96); MEAN PLT VOLUME 7.5 fl (7.5-11.1); PLATELET COUNT 453 10^3/uL (134-434); WHITE BLOOD COUNT 25.5 K/mm3 (4.0-10.0)
[2022-03-01 01:08] LABS: VENOUS BASE EXCESS -11.8 mmol/L (-2-2); VENOUS O2 SATURATION 98.9 % (70-80); VENOUS PCO2 35.7 mmHg (38-52); VENOUS PH 7.232 (7.310-7.410)
[2022-03-01 01:17] LABS: BLOOD UREA NITROGEN 34.6 mg/dL (7-18)
[2022-03-01 01:18] LABS: MAGNESIUM 2.4 mg/dL (1.8-2.4)
[2022-03-01 01:20] LABS: CREATININE 2.3 mg/dL (0.55-1.3); PHOSPHOROUS 4.8 mg/dL (2.5-4.9)
[2022-03-01 01:21] LABS: BILIRUBIN,TOTAL 0.9 mg/dL (0.2-1)
[2022-03-01] MEDS ORDERED: INSULIN REGULAR 100 UNITS in SODIUM CHLORIDE 99 ML IVPB SCH (01:30)
[2022-03-01 01:31] LABS: ALBUMIN 4.4 g/dl (3.4-5.0); TOT PROT 8.4 g/dl (6.4-8.2)
[2022-03-01] MEDS ORDERED: INSULIN REGULAR HUMAN 100 UNITS/ML *VIAL IVPUSH ONE (01:43)
[2022-03-01] MEDS ORDERED: SODIUM CHLORIDE 0.9%/KCL 20 MEQ/1,000 ML INFUS.BAG IV SCH (01:45)
[2022-03-01 02:55] LABS: EPI CELLS 3 /uL (0-25.1); HYALINE CASTS 2 /uL (0-3.1); URINE APPEARANCE CLEAR; URINE BACTERIA 14 /uL (0-1359); URINE BILIRUBIN NEGATIVE (NEGATIVE); URINE COLOR YELLOW; URINE GLUCOSE (UA) 3+ (NEGATIVE); URINE KETONE 4+ (NEGATIVE); URINE LEUK ESTERASE NEGATIVE (NEGATIVE); URINE NITRITE NEGATIVE (NEGATIVE); URINE PROTEIN 1+ (NEGATIVE); URINE RBC 8 /uL (0-23.9); URINE UROBILINOGEN 0.2 mg/dL (0.2-1.0); URINE WBC 2 /uL (0-25.8)
[2022-03-01 03:46] LABS: BLOOD UREA NITROGEN 31.2 mg/dL (7-18); CALCIUM 8.9 mg/dL (8.5-10.1)
[2022-03-01] MEDS ORDERED: ONDANSETRON 4 MG/2 ML VIAL IVPUSH PRN (04:13)
[2022-03-01] MEDS ORDERED: D5-LR+20 MEQ KCL - 20 MEQ/1,000 ML INFUS.BAG IV SCH (04:15)
[2022-03-01] MEDS ORDERED: DEXTROSE 5%-0.45% SALINE 1,000 ML with POTASSIUM CHLORIDE 20 MEQ IV SCH (04:15)
[2022-03-01] MEDS ORDERED: D5-1/2NS+20 MEQ KCL - 20 MEQ/1,000 ML INFUS.BAG IV SCH ×3 (04:15→08:30)
[2022-03-01] MEDS ORDERED: DEXTROSE 5%-0.45% SALINE 1,000 ML IV SCH ×2 (04:15→08:30)
[2022-03-01] MEDS ORDERED: SODIUM CHLORIDE 0.45% 1,000 ML with POTASSIUM CHLORIDE 20 MEQ IV SCH (04:15)
[2022-03-01 04:51] LABS: ANISOCYTOSIS 2+; MACROCYTOSIS 1+; OVALOCYTE 1+; ROULEAU 1+
[2022-03-01] MEDS ORDERED: TRIMETHOBENZAMIDE HCL 200MG/2ML INJ IM PRN (04:55)
[2022-03-01 05:41] LABS: COCAINE, UR NEGATIVE (NEGATIVE); METHADONE, UR NEGATIVE (NEGATIVE); OPIATES, URI NEGATIVE (NEGATIVE); URINE AMPHETAMINES NEGATIVE (NEGATIVE); URINE BARBITURATES NEGATIVE (NEGATIVE); URINE BENZODIAZEPINES NEGATIVE (NEGATIVE)
[2022-03-01] MEDS: HEPARIN NA (PORCINE) 5,000 UNITS/ML 1ML VIAL SQ SCH ×3 (06:30→21:53)
[2022-03-01 06:50] LABS: PHENCYCLIDINE,URINE POSITIVE (NEGATIVE)
[2022-03-01 07:06] LABS: HEMATOCRIT 40.8 % (35.4-49); MCH 23.4 pg (25.7-33.7); MCHC 31.8 g/dl (32.0-35.9); MEAN CELL VOLUME 73.6 fl (80-96); MEAN PLT VOLUME 7.4 fl (7.5-11.1); PLATELET COUNT 357 10^3/uL (134-434); RBC 5.55 M/mm3 (4.00-5.60); RDW 14.9 % (11.9-15.9)
[2022-03-01] MEDS ORDERED: SODIUM CHLORIDE 0.45%/POT 20 MEQ/1,000 ML INFUS.BAG IV SCH (07:45)
[2022-03-01 09:03] LABS: ANISOCYTOSIS 2+; MACROCYTOSIS 0
[2022-03-01] MEDS: FOLIC ACID 1 MG TABLET (FP) PO SCH (09:04)
[2022-03-01] MEDS: CYANOCOBALAMIN (VITAMIN B-12) 100 MCG TABLET PO SCH (09:05)
[2022-03-01] MEDS ORDERED: MUPIROCIN 2% TOPICAL OINTMENT FOR DECOLONIZATION NS SCH (10:00)
[2022-03-01] MEDS ORDERED: PANTOPRAZOLE SODIUM 40 MG VIAL IVPUSH SCH (10:00)
[2022-03-01 10:06] LABS: CALCIUM 8.7 mg/dL (8.5-10.1)
[2022-03-01 10:07] LABS: BLOOD UREA NITROGEN 27.3 mg/dL (7-18)
[2022-03-01 10:10] LABS: CREATININE 1.8 mg/dL (0.55-1.3)
[2022-03-01] MEDS: INSULIN (LEVEMIR) 100 UNITS/ML UNITS SQ SCH ×2 (11:00→21:54)
[2022-03-01] MEDS: INSULIN SLIDING SCALE (NOVOLOG) 1 VIAL SQ SCH ×3 (12:03→21:54)
[2022-03-01] MEDS ORDERED: SODIUM CHLORIDE 1,000 ML IV SCH (12:30)
[2022-03-01] MEDS ORDERED: MAG HYDROX/AL HYDROX/SIMETH -MYLANTA- ORAL SUSPENSION PO ONE (13:57)
[2022-03-01] MEDS ORDERED: FAMOTIDINE 10 MG TABLET PO ONE (14:22)
[2022-03-01] MEDS: QUEtiapine FUMARATE 100 MG TABLET (FP) PO SCH (21:54)
[2022-03-01] MEDS ORDERED: CHLORHEXIDINE GLUCONATE 4% CLEANSER FOR DECOLONIZATION TP SCH (22:00)
[2022-03-02 07:13] LABS: BASO % 0.4 % (0-2.0); EOS % 0.4 % (0-4.5); HEMATOCRIT 34.1 % (35.4-49); LYMPH % 22.8 % (8-40); MCH 23.3 pg (25.7-33.7); MCHC 32.1 g/dl (32.0-35.9); MEAN CELL VOLUME 72.4 fl (80-96); MEAN PLT VOLUME 7.1 fl (7.5-11.1); MONO % 5.7 % (3.8-10.2); NEUT % 70.7 % (42.8-82.8); PLATELET COUNT 278 10^3/uL (134-434); RBC 4.71 M/mm3 (4.00-5.60); RDW 14.8 % (11.9-15.9); WHITE BLOOD COUNT 10.2 K/mm3 (4.0-10.0)
[2022-03-02] MEDS: INSULIN (LEVEMIR) 100 UNITS/ML UNITS SQ SCH ×2 (07:15→22:59)
[2022-03-02] MEDS: HEPARIN NA (PORCINE) 5,000 UNITS/ML 1ML VIAL SQ SCH ×3 (07:15→22:57)
[2022-03-02] MEDS: INSULIN SLIDING SCALE (NOVOLOG) 1 VIAL SQ SCH ×4 (07:15→23:00)
[2022-03-02 07:45] LABS: CALCIUM 8.5 mg/dL (8.5-10.1)
[2022-03-02 07:46] LABS: BLOOD UREA NITROGEN 11.8 mg/dL (7-18)
[2022-03-02 07:50] LABS: CREATININE 1.2 mg/dL (0.55-1.3); PHOSPHOROUS 1.7 mg/dL (2.5-4.9)
[2022-03-02 07:51] LABS: BILIRUBIN,TOTAL 0.8 mg/dL (0.2-1)
[2022-03-02 08:00] LABS: ALBUMIN 2.8 g/dl (3.4-5.0); TOT PROT 5.5 g/dl (6.4-8.2)
[2022-03-02] MEDS: CYANOCOBALAMIN (VITAMIN B-12) 100 MCG TABLET PO SCH (09:40)
[2022-03-02] MEDS: PANTOPRAZOLE 40 MG TABLET PO SCH (09:40)
[2022-03-02] MEDS: FOLIC ACID 1 MG TABLET (FP) PO SCH (09:40)
[2022-03-02] MEDS: LOSARTAN POTASSIUM 50 MG TABLET PO SCH (13:21)
[2022-03-02] MEDS: NAPH,MB-DB/K PH,MBDB POWDER PACKET PO SCH ×2 (13:21→22:58)
[2022-03-02] MEDS: QUEtiapine FUMARATE 100 MG TABLET (FP) PO SCH (22:58)
[2022-03-03 00:10] VITALS: BMI 26.7
[2022-03-03 04:38] VITALS: TEMP 97.7
[2022-03-03] MEDS: NAPH,MB-DB/K PH,MBDB POWDER PACKET PO SCH (07:00)
[2022-03-03] MEDS: INSULIN (LEVEMIR) 100 UNITS/ML UNITS SQ SCH (07:00)
[2022-03-03] MEDS: HEPARIN NA (PORCINE) 5,000 UNITS/ML 1ML VIAL SQ SCH (07:00)
[2022-03-03] MEDS: INSULIN SLIDING SCALE (NOVOLOG) 1 VIAL SQ SCH ×2 (07:05→11:36)
[2022-03-03] MEDS ORDERED: INSULIN (LEVEMIR) 100 UNITS/ML UNITS SQ ONE (09:03)
[2022-03-03] MEDS: CYANOCOBALAMIN (VITAMIN B-12) 100 MCG TABLET PO SCH (09:35)
[2022-03-03] MEDS: FOLIC ACID 1 MG TABLET (FP) PO SCH (09:36)
[2022-03-03] MEDS: PANTOPRAZOLE 40 MG TABLET PO SCH (09:36)
[2022-03-03] MEDS: LOSARTAN POTASSIUM 50 MG TABLET PO SCH (09:36)
[2022-03-03] MEDS ORDERED: FAMOTIDINE 20 MG TABLET PO SCH (10:00)
[2022-03-03 10:51] LABS: BASO % 0.6 % (0-2.0); EOS % 0.7 % (0-4.5); HEMATOCRIT 36.4 % (35.4-49); HEMOGLOBIN 11.8 GM/dL (11.7-16.9); LYMPH % 20.6 % (8-40); MCH 23.7 pg (25.7-33.7); MCHC 32.5 g/dl (32.0-35.9); MEAN CELL VOLUME 72.9 fl (80-96); MEAN PLT VOLUME 7.3 fl (7.5-11.1); MONO % 8.1 % (3.8-10.2); PLATELET COUNT 226 10^3/uL (134-434); RBC 4.99 M/mm3 (4.00-5.60); RDW 14.5 % (11.9-15.9); WHITE BLOOD COUNT 5.5 K/mm3 (4.0-10.0)
[2022-03-03 11:02] LABS: CALCIUM 8.9 mg/dL (8.5-10.1)
[2022-03-03 11:03] LABS: ALBUMIN 3.1 g/dl (3.4-5.0); BLOOD UREA NITROGEN 13.4 mg/dL (7-18)
[2022-03-03 11:06] LABS: CREATININE 0.9 mg/dL (0.55-1.3); PHOSPHOROUS 2.2 mg/dL (2.5-4.9)
[2022-03-03 11:07] LABS: BILIRUBIN,TOTAL 0.4 mg/dL (0.2-1)
[2022-03-03 11:08] LABS: TOT PROT 6.2 g/dl (6.4-8.2)
[2022-03-03 15:55] VITALS: BP 143/88; PULSE 82
== END 2022-03-03 15:30 | disposition home or self-care (01) | DRG 420 ==
LOC: JER 23:57 → JERBED 03-01 04:01 → JICU 03-01 04:53
PROVIDERS: ADMIT Internal Medicine Pulmonary Disease; ATTEND Internal Medicine
DX: E11.10 Type 2 diabetes mellitus with ketoacidosis without coma (principal); N17.9 Acute kidney failure, unspecified; E78.5 Hyperlipidemia, unspecified; E86.0 Dehydration; K21.9 Gastro-esophageal reflux disease without esophagitis; R00.0 Tachycardia, unspecified; D64.9 Anemia, unspecified; E87.6 Hypokalemia; N28.1 Cyst of kidney, acquired; K76.0 Fatty (change of) liver, not elsewhere classified; I12.9 Hypertensive chronic kidney disease with stage 1 through stage 4 chronic kidney disease, or unspecified chronic kidney disease; E11.22 Type 2 diabetes mellitus with diabetic chronic kidney disease; N18.9 Chronic kidney disease, unspecified; R80.9 Proteinuria, unspecified; D72.829 Elevated white blood cell count, unspecified; E11.65 Type 2 diabetes mellitus with hyperglycemia; Z91.14 Patient's other noncompliance with medication regimen
CPT/HCPCS: 36415; 71045-TC-FY; 80048; 80053; 80307; 81003; 82010; 82803; 82962; 83605; 83735; 84100; 85025; 87086; 93005; 93010; 99285-25; C9803-CS; J1644; J3480; U0003; U0005

== ENCOUNTER 2022-03-09 23:35 | Emergency (ER) | payer OTHER ==
[2022-03-09 23:57] VITALS: BP 141/85; PULSE 88; TEMP 98; BMI 22.3
[2022-03-10 01:18] LABS: EOS % 4.2 % (0-4.5); HEMATOCRIT 31.8 % (35.4-49); HEMOGLOBIN 10.2 GM/dL (11.7-16.9); MCH 23.5 pg (25.7-33.7); MCHC 32.1 g/dl (32.0-35.9); MEAN CELL VOLUME 73.1 fl (80-96); MEAN PLT VOLUME 7.2 fl (7.5-11.1); MONO % 14.3 % (3.8-10.2); NEUT % 54.5 % (42.8-82.8); PLATELET COUNT 340 10^3/uL (134-434); RBC 4.35 M/mm3 (4.00-5.60); RDW 15.2 % (11.9-15.9)
[2022-03-10 01:22] LABS: CHLORIDE 109 mmol/L (98-107); SODIUM 144 mmol/L (136-145)
[2022-03-10 01:24] LABS: CALCIUM 8.8 mg/dL (8.5-10.1); GLUCOSE,RANDOM 114 mg/dL (74-106)
[2022-03-10 01:25] LABS: ALBUMIN 3.1 g/dl (3.4-5.0); ANION GAP 6 MMOL/L (8-16); BLOOD UREA NITROGEN 10.4 mg/dL (7-18); CO2 29 mmol/L (21-32)
[2022-03-10 01:27] LABS: SGPT/ALT 31 U/L (13-61)
[2022-03-10 01:28] LABS: SGOT/AST 35 U/L (15-37)
[2022-03-10 01:29] LABS: BILIRUBIN,TOTAL 0.2 mg/dL (0.2-1); TOT PROT 6.2 g/dl (6.4-8.2)
[2022-03-10 01:30] LABS: ALK PHOS 85 U/L (45-117)
[2022-03-10 03:29] LABS: METHADONE, UR NEGATIVE (NEGATIVE); URINE AMPHETAMINES NEGATIVE (NEGATIVE)
[2022-03-10 03:30] LABS: OPIATES, URI NEGATIVE (NEGATIVE); URINE BARBITURATES NEGATIVE (NEGATIVE)
[2022-03-10 03:50] LABS: COCAINE, UR NEGATIVE (NEGATIVE); PHENCYCLIDINE,URINE POSITIVE (NEGATIVE); URINE BENZODIAZEPINES NEGATIVE (NEGATIVE)
== END 2022-03-10 05:49 | disposition home or self-care (01) ==
LOC: JER 23:35
DX: F16.10 Hallucinogen abuse, uncomplicated (principal); E16.2 Hypoglycemia, unspecified; W01.0XXA Fall on same level from slipping, tripping and stumbling without subsequent striking against object, initial encounter
CPT/HCPCS: 36415; 70450-TC; 80053; 80307; 82962; 85025; 93005; 93010; 99284-25

== ENCOUNTER 2022-07-08 01:06 | Inpatient (IN) | payer OTHER ==
[2022-07-08] MEDS ORDERED: SODIUM CHLORIDE 0.9% 500 ML INFUS.BAG IV ONE ×3 (01:14→03:27)
[2022-07-08 01:23] VITALS: BP 142/82; TEMP 98.9; BMI 24.4
[2022-07-08 02:12] LABS: BASO % 0.4 % (0-2.0); EOS % 0.8 % (0-4.5); HEMATOCRIT 40.4 % (35.4-49); HEMOGLOBIN 12.7 GM/dL (11.7-16.9); LYMPH % 8.3 % (8-40); MCH 22.2 pg (25.7-33.7); MCHC 31.5 g/dl (32.0-35.9); MEAN CELL VOLUME 70.5 fl (80-96); MEAN PLT VOLUME 7.8 fl (7.5-11.1); NEUT % 83.5 % (42.8-82.8); PLATELET COUNT 362 10^3/uL (134-434); RBC 5.73 M/mm3 (4.00-5.60); RDW 14.4 % (11.9-15.9); WHITE BLOOD COUNT 14.9 K/mm3 (4.0-10.0)
[2022-07-08 02:13] LABS: VENOUS O2 SATURATION 69.4 % (70-80); VENOUS PCO2 48.9 mmHg (38-52); VENOUS PH 7.304 (7.310-7.410)
[2022-07-08 02:35] LABS: ALBUMIN 4.3 g/dl (3.4-5.0); BLOOD UREA NITROGEN 20.9 mg/dL (7-18); MAGNESIUM 2.5 mg/dL (1.8-2.4)
[2022-07-08 02:38] LABS: CREATININE 2.2 mg/dL (0.55-1.3)
[2022-07-08 02:39] LABS: BILIRUBIN,TOTAL 0.6 mg/dL (0.2-1)
[2022-07-08] MEDS ORDERED: ceFAZolin 2 GRAM PREMIX BAG IVPB ONE (02:45)
[2022-07-08 03:10] LABS: LACTIC ACID 6.4 mmol/L (0.4-2.0)
[2022-07-08] MEDS ORDERED: CEFAZOLIN SODIUM 2 GM in DEXTROSE 5%-WATER 100 ML IVPB ONE (03:15)
[2022-07-08] MEDS ORDERED: KCL 10 MEQ IVPB 10 MEQ/100 ML INFUS.BAG IVPB SCH (03:45)
[2022-07-08] MEDS ORDERED: CEFAZOLIN SODIUM 2 GM VIAL ONE (04:45)
[2022-07-08] MEDS ORDERED: KCL 10 MEQ IVPB 10 MEQ/100 ML INFUS.BAG IVPB ONE (04:45)
[2022-07-08 05:02] VITALS: PULSE 92; RESP 18
[2022-07-08 05:46] LABS: CALCIUM 9.6 mg/dL (8.5-10.1)
[2022-07-08 05:47] LABS: BLOOD UREA NITROGEN 18.8 mg/dL (7-18)
[2022-07-08 05:50] LABS: CREATININE 1.4 mg/dL (0.55-1.3)
[2022-07-08] MEDS ORDERED: THIAMINE HCL 200 MG/2 ML VIAL IVPB ONE (05:51)
[2022-07-08] MEDS ORDERED: THIAMINE HCL 200 MG/2 ML VIAL ONE (07:11)
[2022-07-08] MEDS ORDERED: ACETAMINOPHEN 325 MG TABLET (FP) PO PRN (07:54)
[2022-07-08] MEDS ORDERED: SODIUM CHLORIDE 1,000 ML IV SCH (08:00)
[2022-07-08 10:59] LABS: PH,URINE 5.5 (5.0-8.0); URINE APPEARANCE CLEAR; URINE BILIRUBIN NEGATIVE (NEGATIVE); URINE COLOR YELLOW; URINE GLUCOSE (UA) 3+ (NEGATIVE); URINE KETONE NEGATIVE (NEGATIVE); URINE LEUK ESTERASE NEGATIVE (NEGATIVE); URINE NITRITE NEGATIVE (NEGATIVE); URINE PROTEIN NEGATIVE (NEGATIVE); URINE UROBILINOGEN 0.2 mg/dL (0.2-1.0)
[2022-07-08] MEDS ORDERED: INSULIN SLIDING SCALE (NOVOLOG) 1 VIAL SQ SCH (11:00)
[2022-07-08 11:31] LABS: METHADONE, UR NEGATIVE (NEGATIVE); OPIATES, URI NEGATIVE (NEGATIVE); URINE AMPHETAMINES NEGATIVE (NEGATIVE); URINE BENZODIAZEPINES NEGATIVE (NEGATIVE)
[2022-07-08 11:32] LABS: URINE BARBITURATES NEGATIVE (NEGATIVE)
[2022-07-08 11:33] LABS: COCAINE, UR POSITIVE (NEGATIVE); PHENCYCLIDINE,URINE POSITIVE (NEGATIVE)
[2022-07-08] MEDS ORDERED: HEPARIN NA (PORCINE) 5,000 UNITS/ML 1ML VIAL SQ SCH (14:00)
[2022-07-08] MEDS ORDERED: GABAPENTIN 300 MG CAPSULE PO SCH (14:00)
[2022-07-08] MEDS ORDERED: GABAPENTIN 300 MG CAPSULE ONE (15:07)
[2022-07-08] MEDS ORDERED: CEFAZOLIN 1 GM in DEXTROSE 5%-WATER - 50 ML IVPB SCH (18:00)
[2022-07-08] MEDS ORDERED: INSULIN (LEVEMIR) 100 UNITS/ML UNITS SQ SCH (22:00)
[2022-07-08] MEDS ORDERED: MIRTAZAPINE 15 MG TABLET (FP) PO SCH (22:00)
[2022-07-08] MEDS ORDERED: QUEtiapine FUMARATE 25 MG TABLET PO SCH (22:00)
[2022-07-09] MEDS ORDERED: FAMOTIDINE 20 MG TABLET PO SCH (10:00)
== END 2022-07-08 17:00 | disposition left against medical advice (07) | DRG 420 ==
LOC: JER 01:06 → JERBED 02:49
PROVIDERS: ADMIT Internal Medicine; ATTEND Internal Medicine
DX: E11.65 Type 2 diabetes mellitus with hyperglycemia (principal); N17.9 Acute kidney failure, unspecified; Z53.29 Procedure and treatment not carried out because of patient's decision for other reasons; K21.9 Gastro-esophageal reflux disease without esophagitis; E87.6 Hypokalemia; N28.1 Cyst of kidney, acquired; K76.0 Fatty (change of) liver, not elsewhere classified; E11.22 Type 2 diabetes mellitus with diabetic chronic kidney disease; I12.9 Hypertensive chronic kidney disease with stage 1 through stage 4 chronic kidney disease, or unspecified chronic kidney disease; N18.9 Chronic kidney disease, unspecified; R00.0 Tachycardia, unspecified; L03.116 Cellulitis of left lower limb; L03.115 Cellulitis of right lower limb; Z79.4 Long term (current) use of insulin
CPT/HCPCS: 36415; 76775-TC; 80048; 80053; 80307; 81003; 82010; 82570; 82803; 82962; 83605; 83690; 83735; 84156; 84300; 85025; 87086; 93005; 93010; 99285-25; C9803-CS; U0003; U0005

== ENCOUNTER 2022-07-30 11:08 | Emergency (ER) | payer OTHER ==
[2022-07-30 11:37] VITALS: BP 113/77; PULSE 106; RESP 18; TEMP 99.6; BMI 27.1
[2022-07-30] MEDS ORDERED: KETOROLAC TROMETHAMINE 30 MG/1 ML VIAL IM ONE (12:00)
[2022-07-30] MEDS ORDERED: KETOROLAC TROMETHAMINE 30 MG/1 ML VIAL ONE (13:22)
== END 2022-07-30 13:58 | disposition home or self-care (01) ==
LOC: JER 11:08
PROC: 3E0233Z Introduction of Anti-inflammatory into Muscle, Percutaneous Approach (ICD-10-PCS; principal; 2022-07-30)
DX: R05.1 Acute cough (principal); M79.10 Myalgia, unspecified site; R09.81 Nasal congestion
CPT/HCPCS: 0241U-QW; 71045-TC-FY; 93005; 93010; 99285-25

== ENCOUNTER 2022-08-15 01:37 | Observation (INO) | payer OTHER ==
[2022-08-15 01:57] VITALS: BMI 24.1
[2022-08-15 03:57] LABS: INR 0.98 (0.83-1.09); PROTHROMBIN TIME (PATIENT) 11.3 SEC (9.7-13.0)
[2022-08-15 04:00] LABS: ACTIVATED PTT 28.4 SECONDS (25.2-36.5)
[2022-08-15] MEDS ORDERED: KETOROLAC TROMETHAMINE 15 MG/ML VIAL IVPUSH ONE ×3 (04:08→18:00)
[2022-08-15 04:09] LABS: CHLORIDE 100 mmol/L (98-107); SODIUM 135 mmol/L (136-145)
[2022-08-15 04:11] LABS: CALCIUM 9.3 mg/dL (8.5-10.1)
[2022-08-15 04:13] LABS: ALBUMIN 3.6 g/dl (3.4-5.0); ANION GAP 11 MMOL/L (8-16); BLOOD UREA NITROGEN 26.2 mg/dL (7-18); CO2 25 mmol/L (21-32)
[2022-08-15] MEDS ORDERED: KETOROLAC TROMETHAMINE 15 MG/ML VIAL ONE ×2 (04:14→18:11)
[2022-08-15 04:16] LABS: CREATININE 1.4 mg/dL (0.55-1.3); SGOT/AST 16 U/L (15-37); SGPT/ALT 26 U/L (13-61)
[2022-08-15 04:17] LABS: BILIRUBIN,TOTAL 0.3 mg/dL (0.2-1)
[2022-08-15 04:19] LABS: ALK PHOS 83 U/L (45-117)
[2022-08-15 04:25] LABS: GLUCOSE,RANDOM 601 mg/dL (74-106)
[2022-08-15] MEDS ORDERED: SODIUM CHLORIDE 0.9% 500 ML INFUS.BAG IV ONE (04:50)
[2022-08-15] MEDS ORDERED: INSULIN REGULAR HUMAN 100 UNITS/ML *VIAL IVPUSH ONE (04:50)
[2022-08-15 04:54] LABS: BASO % 0.8 % (0-2.0); EOS % 2.1 % (0-4.5); HEMATOCRIT 38.5 % (35.4-49); HEMOGLOBIN 12.1 GM/dL (11.7-16.9); LYMPH % 19.5 % (8-40); MCH 22.1 pg (25.7-33.7); MCHC 31.4 g/dl (32.0-35.9); MEAN CELL VOLUME 70.5 fl (80-96); MEAN PLT VOLUME 8.1 fl (7.5-11.1); MONO % 6.8 % (3.8-10.2); NEUT % 70.8 % (42.8-82.8); PLATELET COUNT 409 10^3/uL (134-434); RBC 5.47 M/mm3 (4.00-5.60); RDW 14.6 % (11.9-15.9); WHITE BLOOD COUNT 9.3 K/mm3 (4.0-10.0)
[2022-08-15 05:46] LABS: VENOUS BASE EXCESS 0.1 mmol/L (-2-2); VENOUS O2 SATURATION 49.3 % (70-80); VENOUS PCO2 51.8 mmHg (38-52); VENOUS PH 7.332 (7.310-7.410)
[2022-08-15] MEDS ORDERED: METHOCARBAMOL 500 MG TABLET PO ONE (06:09)
[2022-08-15] MEDS ORDERED: METHOCARBAMOL 500 MG TABLET ONE (06:37)
[2022-08-15] MEDS: ACETAMINOPHEN 325 MG TABLET (FP) PO PRN ×2 (08:32→16:55)
[2022-08-15] MEDS ORDERED: ACETAMINOPHEN 325 MG TABLET (FP) ONE ×2 (08:35→16:55)
[2022-08-15] MEDS ORDERED: LOSARTAN POTASSIUM 50 MG TABLET ONE (09:08)
[2022-08-15] MEDS ORDERED: FAMOTIDINE 20 MG TABLET ONE ×2 (09:08→09:09)
[2022-08-15] MEDS ORDERED: LIDOCAINE 5% TOPICAL PATCH ONE (09:08)
[2022-08-15] MEDS ORDERED: CYCLOBENZAPRINE HCL 5 MG TABLET ONE (09:08)
[2022-08-15] MEDS ORDERED: GABAPENTIN 300 MG CAPSULE ONE ×2 (09:08→15:04)
[2022-08-15] MEDS: GABAPENTIN 300 MG CAPSULE PO SCH ×2 (09:16→15:03)
[2022-08-15 09:49] LABS: CHLORIDE 104 mmol/L (98-107); SODIUM 139 mmol/L (136-145)
[2022-08-15 09:51] LABS: ANION GAP 8 MMOL/L (8-16); BLOOD UREA NITROGEN 21.5 mg/dL (7-18); CO2 27 mmol/L (21-32); GLUCOSE,RANDOM 298 mg/dL (74-106)
[2022-08-15 09:54] LABS: CREATININE 1.2 mg/dL (0.55-1.3)
[2022-08-15] MEDS ORDERED: FAMOTIDINE 40 MG TABLET PO SCH (10:00)
[2022-08-15] MEDS ORDERED: LIDOCAINE 5% TOPICAL PATCH TP SCH (10:00)
[2022-08-15] MEDS ORDERED: CYCLOBENZAPRINE HCL 5 MG TABLET PO SCH (10:00)
[2022-08-15] MEDS ORDERED: INSULIN (LEVEMIR) 100 UNITS/ML UNITS SQ SCH (10:00)
[2022-08-15] MEDS ORDERED: LOSARTAN POTASSIUM 50 MG TABLET PO SCH (10:00)
[2022-08-15 10:41] LABS: PH,URINE 6.5 (5.0-8.0); URINE APPEARANCE CLEAR; URINE BILIRUBIN NEGATIVE (NEGATIVE); URINE COLOR YELLOW; URINE GLUCOSE (UA) 3+ (NEGATIVE); URINE KETONE 1+ (NEGATIVE); URINE LEUK ESTERASE NEGATIVE (NEGATIVE); URINE NITRITE NEGATIVE (NEGATIVE); URINE PROTEIN NEGATIVE (NEGATIVE); URINE UROBILINOGEN 0.2 mg/dL (0.2-1.0)
[2022-08-15] MEDS ORDERED: INSULIN (NOVOLOG) ASPART 100 UNITS/ML 10ML VIAL ONE ×2 (11:40→12:03)
[2022-08-15] MEDS: INSULIN SLIDING SCALE (NOVOLOG) 1 VIAL SQ SCH ×2 (11:58→17:00)
[2022-08-15 15:15] VITALS: BP 141/91; PULSE 98; RESP 15; TEMP 98.3
[2022-08-15] MEDS ORDERED: LIDOCAINE PATCH REMOVAL MC SCH (22:00)
[2022-08-15] MEDS ORDERED: MIRTAZAPINE 45 MG PO SCH (22:00)
[2022-08-15] MEDS ORDERED: MIRTAZAPINE 30 MG, MIRTAZAPINE 15 MG PO SCH (22:00)
[2022-08-15] MEDS ORDERED: ACETAMINOPHEN 325 MG TABLET (FP) PO SCH (23:00)
== END 2022-08-15 20:37 | disposition left against medical advice (07) ==
LOC: JER 01:37 → JERBED 06:22
PROVIDERS: ADMIT Internal Medicine; ATTEND Internal Medicine
PROC: 3E013VG Introduction of Insulin into Subcutaneous Tissue, Percutaneous Approach (ICD-10-PCS; principal; 2022-08-15)
PROC: 3E013VG Introduction of Insulin into Subcutaneous Tissue, Percutaneous Approach (ICD-10-PCS; 2022-08-15)
PROC: 3E0333Z Introduction of Anti-inflammatory into Peripheral Vein, Percutaneous Approach (ICD-10-PCS; 2022-08-15)
PROC: 3E0337Z Introduction of Electrolytic and Water Balance Substance into Peripheral Vein, Percutaneous Approach (ICD-10-PCS; 2022-08-15)
DX: R07.9 Chest pain, unspecified (principal); K21.9 Gastro-esophageal reflux disease without esophagitis; E11.40 Type 2 diabetes mellitus with diabetic neuropathy, unspecified; I10 Essential (primary) hypertension; F19.11 Other psychoactive substance abuse, in remission; F17.210 Nicotine dependence, cigarettes, uncomplicated; Z79.4 Long term (current) use of insulin; E78.00 Pure hypercholesterolemia, unspecified; J45.909 Unspecified asthma, uncomplicated; D64.9 Anemia, unspecified
CPT/HCPCS: 0241U-QW; 36415; 71045-TC-FY; 80048; 80053; 81003; 82010; 82803; 82962; 84484; 85025; 85610; 85730; 87086; 93005; 93010; 94010; 96372; 96374; 96375; 96376; 99285-25; G0378

== ENCOUNTER 2022-08-17 11:59 | Observation (INO) | payer OTHER ==
[2022-08-17 12:24] VITALS: BMI 24.1
[2022-08-17] MEDS ORDERED: ACETAMINOPHEN 500 MG TABLET (FP) PO ONE (13:02)
[2022-08-17] MEDS ORDERED: LIDOCAINE 5% TOPICAL PATCH TP ONE (13:05)
[2022-08-17] MEDS ORDERED: ACETAMINOPHEN 325 MG TABLET (FP) ONE (13:12)
[2022-08-17] MEDS ORDERED: LIDOCAINE 5% TOPICAL PATCH ONE (13:12)
[2022-08-17 13:52] LABS: EOS % 3.3 % (0-4.5); LYMPH % 22.7 % (8-40); MCH 22.3 pg (25.7-33.7); MCHC 31.7 g/dl (32.0-35.9); MEAN CELL VOLUME 70.3 fl (80-96); MEAN PLT VOLUME 7.7 fl (7.5-11.1); MONO % 7.9 % (3.8-10.2); NEUT % 65.1 % (42.8-82.8); PLATELET COUNT 456 10^3/uL (134-434); RBC 5.84 M/mm3 (4.00-5.60); RDW 14.6 % (11.9-15.9); WHITE BLOOD COUNT 7.7 K/mm3 (4.0-10.0)
[2022-08-17 13:59] LABS: INR 1.03 (0.83-1.09); PROTHROMBIN TIME (PATIENT) 11.8 SEC (9.7-13.0)
[2022-08-17 14:02] LABS: ACTIVATED PTT 28.6 SECONDS (25.2-36.5)
[2022-08-17 14:10] LABS: CHLORIDE 100 mmol/L (98-107); SODIUM 138 mmol/L (136-145)
[2022-08-17 14:12] LABS: CALCIUM 10.2 mg/dL (8.5-10.1)
[2022-08-17 14:13] LABS: ALBUMIN 3.7 g/dl (3.4-5.0); ANION GAP 9 MMOL/L (8-16); BLOOD UREA NITROGEN 16.9 mg/dL (7-18); CO2 29 mmol/L (21-32); GLUCOSE,RANDOM 338 mg/dL (74-106); MAGNESIUM 2.2 mg/dL (1.8-2.4)
[2022-08-17 14:16] LABS: CREATININE 1.1 mg/dL (0.55-1.3); SGOT/AST 20 U/L (15-37); SGPT/ALT 30 U/L (13-61)
[2022-08-17 14:18] LABS: BILIRUBIN,TOTAL 0.8 mg/dL (0.2-1); TOT PROT 7.4 g/dl (6.4-8.2)
[2022-08-17 14:19] LABS: ALK PHOS 88 U/L (45-117)
[2022-08-17] MEDS ORDERED: ASPIRIN 81 MG CHEWABLE TABLETS PO ONE (14:28)
[2022-08-17] MEDS ORDERED: LACTATED RINGERS SOLUTION 1000 ML INFUS.BAG IV ONE (14:29)
[2022-08-17] MEDS ORDERED: ASPIRIN 81 MG CHEWABLE TABLETS ONE (15:31)
[2022-08-17] MEDS: ACETAMINOPHEN 325 MG TABLET (FP) PO PRN (20:00)
[2022-08-17] MEDS: INSULIN (LEVEMIR) 100 UNITS/ML UNITS SQ SCH (21:39)
[2022-08-17] MEDS: HEPARIN NA (PORCINE) 5,000 UNITS/ML 1ML VIAL SQ SCH (21:39)
[2022-08-17] MEDS: GABAPENTIN 300 MG CAPSULE PO SCH (22:05)
[2022-08-17] MEDS: ATORVASTATIN CA 40 MG TABLET (FP) PO SCH (22:05)
[2022-08-17] MEDS ORDERED: IBUPROFEN 400 MG TABLET (FP) PO ONE (22:05)
[2022-08-17] MEDS: MIRTAZAPINE 15 MG TABLET (FP) PO SCH (22:05)
[2022-08-17] MEDS: QUEtiapine FUMARATE 100 MG TABLET (FP) PO SCH (22:05)
[2022-08-17] MEDS: LIDOCAINE PATCH REMOVAL MC SCH ×2 (22:08)
[2022-08-17] MEDS: INSULIN SLIDING SCALE (NOVOLOG) 1 VIAL SQ SCH ×2 (22:08→22:15)
[2022-08-17] MEDS: LOSARTAN POTASSIUM 50 MG TABLET PO SCH (22:14)
[2022-08-17] MEDS ORDERED: INSULIN (NOVOLOG) ASPART 100 UNITS/ML 10ML VIAL SQ ONE (23:40)
[2022-08-17] MEDS: BUDESONIDE/FORMETEROL FUMARATE 160/4.5 mcg INHALER IH SCH (23:48)
[2022-08-18] MEDS ORDERED: INSULIN (NOVOLOG) ASPART 100 UNITS/ML 10ML VIAL SQ ONE (00:53)
[2022-08-18] MEDS: GABAPENTIN 300 MG CAPSULE PO SCH ×3 (06:54→21:06)
[2022-08-18] MEDS: ACETAMINOPHEN 325 MG TABLET (FP) PO PRN ×3 (06:54→21:18)
[2022-08-18] MEDS: INSULIN (LEVEMIR) 100 UNITS/ML UNITS SQ SCH ×2 (07:01→21:13)
[2022-08-18] MEDS: INSULIN SLIDING SCALE (NOVOLOG) 1 VIAL SQ SCH ×4 (07:01→21:15)
[2022-08-18] MEDS ORDERED: FLU VACC QS2022-23(6MOS UP)/PF 60 MCG/0.5 ML SYRINGE IM ONE (09:00)
[2022-08-18] MEDS: FAMOTIDINE 20 MG TABLET PO SCH (09:31)
[2022-08-18] MEDS: HEPARIN NA (PORCINE) 5,000 UNITS/ML 1ML VIAL SQ SCH ×2 (09:32→21:06)
[2022-08-18] MEDS: ASPIRIN COATED 81 MG TABLET.EC PO SCH (09:32)
[2022-08-18] MEDS: LOSARTAN POTASSIUM 50 MG TABLET PO SCH (09:32)
[2022-08-18] MEDS: BUDESONIDE/FORMETEROL FUMARATE 160/4.5 mcg INHALER IH SCH ×2 (09:34→21:07)
[2022-08-18] MEDS: LIDOCAINE 5% TOPICAL PATCH TP SCH (09:34)
[2022-08-18 09:55] LABS: HEMATOCRIT 38.9 % (35.4-49); HEMOGLOBIN 12.2 GM/dL (11.7-16.9); MCH 21.9 pg (25.7-33.7); MCHC 31.3 g/dl (32.0-35.9); MEAN CELL VOLUME 69.9 fl (80-96); MEAN PLT VOLUME 7.8 fl (7.5-11.1); PLATELET COUNT 413 10^3/uL (134-434); RBC 5.57 M/mm3 (4.00-5.60); RDW 14.7 % (11.9-15.9); WHITE BLOOD COUNT 11.2 K/mm3 (4.0-10.0)
[2022-08-18 10:10] LABS: CHLORIDE 104 mmol/L (98-107); SODIUM 140 mmol/L (136-145)
[2022-08-18 10:33] LABS: ALBUMIN 3.1 g/dl (3.4-5.0); ANION GAP 10 MMOL/L (8-16); BLOOD UREA NITROGEN 18.9 mg/dL (7-18); CALCIUM 9.4 mg/dL (8.5-10.1); CO2 25 mmol/L (21-32)
[2022-08-18 10:34] LABS: GLUCOSE,RANDOM 284 mg/dL (74-106)
[2022-08-18 10:36] LABS: CHOLESTEROL 131 mg/dL (50-200); SGOT/AST 15 U/L (15-37)
[2022-08-18 10:37] LABS: SGPT/ALT 24 U/L (13-61)
[2022-08-18 10:38] LABS: BILIRUBIN,TOTAL 0.3 mg/dL (0.2-1); TOT PROT 6.2 g/dl (6.4-8.2)
[2022-08-18 10:44] LABS: ALK PHOS 74 U/L (45-117)
[2022-08-18] MEDS: CARVEDILOL 3.125 MG TABLET (FP) PO SCH ×2 (12:34→21:06)
[2022-08-18 12:41] LABS: METHADONE, UR NEGATIVE (NEGATIVE); OPIATES, URI NEGATIVE (NEGATIVE)
[2022-08-18 12:42] LABS: URINE BARBITURATES NEGATIVE (NEGATIVE); URINE BENZODIAZEPINES NEGATIVE (NEGATIVE)
[2022-08-18 12:45] LABS: COCAINE, UR POSITIVE (NEGATIVE); PHENCYCLIDINE,URINE POSITIVE (NEGATIVE); URINE AMPHETAMINES NEGATIVE (NEGATIVE)
[2022-08-18] MEDS: AMOXICILLIN 500 MG CAPSULE (FP) PO SCH ×2 (17:19→21:06)
[2022-08-18] MEDS: amLODIPine BESYLATE 10 MG TABLET (FP) PO SCH (17:19)
[2022-08-18] MEDS: ATORVASTATIN CA 40 MG TABLET (FP) PO SCH (21:06)
[2022-08-18] MEDS: QUEtiapine FUMARATE 100 MG TABLET (FP) PO SCH (21:07)
[2022-08-18] MEDS: MIRTAZAPINE 15 MG TABLET (FP) PO SCH (21:07)
[2022-08-18] MEDS: LIDOCAINE PATCH REMOVAL MC SCH ×2 (21:17)
[2022-08-19] MEDS: AMOXICILLIN 500 MG CAPSULE (FP) PO SCH ×3 (05:56→21:33)
[2022-08-19] MEDS: GABAPENTIN 300 MG CAPSULE PO SCH ×3 (05:56→21:34)
[2022-08-19] MEDS: ACETAMINOPHEN 325 MG TABLET (FP) PO PRN ×2 (06:01→23:20)
[2022-08-19] MEDS: INSULIN (LEVEMIR) 100 UNITS/ML UNITS SQ SCH ×2 (06:34→21:45)
[2022-08-19] MEDS: INSULIN SLIDING SCALE (NOVOLOG) 1 VIAL SQ SCH ×4 (06:38→21:34)
[2022-08-19] MEDS: amLODIPine BESYLATE 10 MG TABLET (FP) PO SCH (09:26)
[2022-08-19] MEDS: CARVEDILOL 3.125 MG TABLET (FP) PO SCH (09:26)
[2022-08-19] MEDS: BUDESONIDE/FORMETEROL FUMARATE 160/4.5 mcg INHALER IH SCH ×2 (09:27→21:35)
[2022-08-19] MEDS: ASPIRIN COATED 81 MG TABLET.EC PO SCH (09:27)
[2022-08-19] MEDS: LIDOCAINE 5% TOPICAL PATCH TP SCH (09:27)
[2022-08-19] MEDS: FAMOTIDINE 20 MG TABLET PO SCH (09:27)
[2022-08-19] MEDS: LOSARTAN POTASSIUM 50 MG TABLET PO SCH (09:27)
[2022-08-19] MEDS: HEPARIN NA (PORCINE) 5,000 UNITS/ML 1ML VIAL SQ SCH ×2 (09:28→21:33)
[2022-08-19] MEDS ORDERED: KETOROLAC TROMETHAMINE 30 MG/1 ML VIAL IM ONE (11:35)
[2022-08-19 12:46] LABS: BASO % 0.7 % (0-2.0); EOS % 3.6 % (0-4.5); HEMATOCRIT 39.8 % (35.4-49); HEMOGLOBIN 12.5 GM/dL (11.7-16.9); LYMPH % 14.3 % (8-40); MCHC 31.4 g/dl (32.0-35.9); MEAN CELL VOLUME 69.9 fl (80-96); MEAN PLT VOLUME 8.1 fl (7.5-11.1); MONO % 8.3 % (3.8-10.2); NEUT % 73.1 % (42.8-82.8); PLATELET COUNT 397 10^3/uL (134-434); RDW 14.7 % (11.9-15.9); WHITE BLOOD COUNT 11.6 K/mm3 (4.0-10.0)
[2022-08-19 13:06] LABS: CALCIUM 9.5 mg/dL (8.5-10.1)
[2022-08-19 13:07] LABS: ALBUMIN 3.2 g/dl (3.4-5.0); BLOOD UREA NITROGEN 20.3 mg/dL (7-18); MAGNESIUM 1.9 mg/dL (1.8-2.4)
[2022-08-19 13:08] LABS: TOT PROT 6.6 g/dl (6.4-8.2)
[2022-08-19 13:10] LABS: PHOSPHOROUS 3.5 mg/dL (2.5-4.9)
[2022-08-19 13:13] LABS: BILIRUBIN,TOTAL 0.5 mg/dL (0.2-1)
[2022-08-19 13:30] LABS: ANISOCYTOSIS 2+; MACROCYTOSIS 0
[2022-08-19] MEDS: CARVEDILOL 6.25 MG TABLET (FP) PO SCH (21:34)
[2022-08-19] MEDS: ATORVASTATIN CA 40 MG TABLET (FP) PO SCH (21:34)
[2022-08-19] MEDS: QUEtiapine FUMARATE 100 MG TABLET (FP) PO SCH (21:35)
[2022-08-19] MEDS: MIRTAZAPINE 15 MG TABLET (FP) PO SCH (21:35)
[2022-08-19] MEDS: LIDOCAINE PATCH REMOVAL MC SCH ×2 (21:46)
[2022-08-20] MEDS: AMOXICILLIN 500 MG CAPSULE (FP) PO SCH ×2 (06:56→13:30)
[2022-08-20] MEDS: GABAPENTIN 300 MG CAPSULE PO SCH ×3 (06:56→21:47)
[2022-08-20] MEDS: ACETAMINOPHEN 325 MG TABLET (FP) PO PRN ×2 (06:57→21:55)
[2022-08-20] MEDS: INSULIN (LEVEMIR) 100 UNITS/ML UNITS SQ SCH ×2 (07:01→21:44)
[2022-08-20] MEDS: INSULIN SLIDING SCALE (NOVOLOG) 1 VIAL SQ SCH ×4 (07:01→21:45)
[2022-08-20] MEDS: ASPIRIN COATED 81 MG TABLET.EC PO SCH (10:13)
[2022-08-20] MEDS: CARVEDILOL 6.25 MG TABLET (FP) PO SCH ×2 (10:13→21:47)
[2022-08-20] MEDS: LIDOCAINE 5% TOPICAL PATCH TP SCH (10:13)
[2022-08-20] MEDS: LOSARTAN POTASSIUM 50 MG TABLET PO SCH (10:13)
[2022-08-20] MEDS: HEPARIN NA (PORCINE) 5,000 UNITS/ML 1ML VIAL SQ SCH ×2 (10:13→21:46)
[2022-08-20] MEDS: FAMOTIDINE 20 MG TABLET PO SCH (10:14)
[2022-08-20] MEDS: amLODIPine BESYLATE 10 MG TABLET (FP) PO SCH (10:14)
[2022-08-20] MEDS: BUDESONIDE/FORMETEROL FUMARATE 160/4.5 mcg INHALER IH SCH ×2 (10:14→21:48)
[2022-08-20] MEDS: MAGNESIUM SULF 50% (8.12 MEQ/2 ML-1 GM VIAL) IVPB ONE ×2 (11:26→12:12)
[2022-08-20] MEDS ORDERED: KETOROLAC TROMETHAMINE 30 MG/1 ML VIAL IM ONE (15:47)
[2022-08-20] MEDS: AMOX TR/POT CLAV 875MG/125MG TABLETS (FP) PO SCH ×2 (16:01→16:44)
[2022-08-20] MEDS: ATORVASTATIN CA 40 MG TABLET (FP) PO SCH (21:47)
[2022-08-20] MEDS: MIRTAZAPINE 15 MG TABLET (FP) PO SCH (21:47)
[2022-08-20] MEDS: QUEtiapine FUMARATE 100 MG TABLET (FP) PO SCH (21:47)
[2022-08-20] MEDS: LIDOCAINE PATCH REMOVAL MC SCH ×2 (21:48)
[2022-08-21 03:08] VITALS: RESP 18
[2022-08-21] MEDS: INSULIN (LEVEMIR) 100 UNITS/ML UNITS SQ SCH (06:28)
[2022-08-21] MEDS: INSULIN SLIDING SCALE (NOVOLOG) 1 VIAL SQ SCH ×2 (06:28→12:06)
[2022-08-21] MEDS: GABAPENTIN 300 MG CAPSULE PO SCH (06:28)
[2022-08-21] MEDS: ACETAMINOPHEN 325 MG TABLET (FP) PO PRN (06:37)
[2022-08-21] MEDS ORDERED: IBUPROFEN 800 MG/8 ML IJ IVPB ONE (07:55)
[2022-08-21] MEDS: AMOX TR/POT CLAV 875MG/125MG TABLETS (FP) PO SCH (08:03)
[2022-08-21] MEDS ORDERED: IBUPROFEN 600 MG TABLET (FP) PO ONE (08:12)
[2022-08-21 08:35] LABS: HEMATOCRIT 37.2 % (35.4-49); HEMOGLOBIN 11.9 GM/dL (11.7-16.9); MCH 22.6 pg (25.7-33.7); MEAN CELL VOLUME 70.6 fl (80-96); PLATELET COUNT 335 10^3/uL (134-434); RBC 5.27 M/mm3 (4.00-5.60); RDW 14.8 % (11.9-15.9); WHITE BLOOD COUNT 7.4 K/mm3 (4.0-10.0)
[2022-08-21] MEDS: FAMOTIDINE 20 MG TABLET PO SCH (09:00)
[2022-08-21] MEDS: CARVEDILOL 6.25 MG TABLET (FP) PO SCH (09:00)
[2022-08-21] MEDS: ASPIRIN COATED 81 MG TABLET.EC PO SCH (09:00)
[2022-08-21] MEDS: LOSARTAN POTASSIUM 50 MG TABLET PO SCH (09:00)
[2022-08-21 09:01] LABS: BLOOD UREA NITROGEN 29.9 mg/dL (7-18); CALCIUM 9.2 mg/dL (8.5-10.1)
[2022-08-21] MEDS: BUDESONIDE/FORMETEROL FUMARATE 160/4.5 mcg INHALER IH SCH (09:01)
[2022-08-21] MEDS: HEPARIN NA (PORCINE) 5,000 UNITS/ML 1ML VIAL SQ SCH (09:01)
[2022-08-21] MEDS: amLODIPine BESYLATE 10 MG TABLET (FP) PO SCH (09:01)
[2022-08-21] MEDS: LIDOCAINE 5% TOPICAL PATCH TP SCH (09:01)
[2022-08-21 09:04] LABS: CREATININE 1.3 mg/dL (0.55-1.3)
[2022-08-21 09:06] LABS: BILIRUBIN,TOTAL 0.3 mg/dL (0.2-1); TOT PROT 6.3 g/dl (6.4-8.2)
[2022-08-21 09:11] VITALS: BP 136/101; PULSE 109; TEMP 98.2
== END 2022-08-21 14:15 | disposition home or self-care (01) ==
LOC: JER 11:59 → INTOOBSV 14:34 → JERBED 14:34 → UNDOADMOB 14:34 → J4W 20:11 → JERBED 20:11 → J4W 08-18 10:28 → JERBED 08-18 10:28
PROVIDERS: ADMIT Internal Medicine; ATTEND Internal Medicine
PROC: 3E023GC Introduction of Other Therapeutic Substance into Muscle, Percutaneous Approach (ICD-10-PCS; principal; 2022-08-18)
PROC: 3E0234Z Introduction of Serum, Toxoid and Vaccine into Muscle, Percutaneous Approach (ICD-10-PCS; 2022-08-18)
PROC: 3E013VG Introduction of Insulin into Subcutaneous Tissue, Percutaneous Approach (ICD-10-PCS; 2022-08-18)
PROC: 3E0333Z Introduction of Anti-inflammatory into Peripheral Vein, Percutaneous Approach (ICD-10-PCS; 2022-08-18)
PROC: 3E033NZ Introduction of Analgesics, Hypnotics, Sedatives into Peripheral Vein, Percutaneous Approach (ICD-10-PCS; 2022-08-18)
DX: R07.9 Chest pain, unspecified (principal); R77.8 Other specified abnormalities of plasma proteins; E11.42 Type 2 diabetes mellitus with diabetic polyneuropathy; F19.10 Other psychoactive substance abuse, uncomplicated; I10 Essential (primary) hypertension; J45.909 Unspecified asthma, uncomplicated; F14.90 Cocaine use, unspecified, uncomplicated; K21.9 Gastro-esophageal reflux disease without esophagitis; M79.602 Pain in left arm
CPT/HCPCS: 0241U-QW; 36415; 71046-TC-FY; 72125-TC; 80053; 80061; 80307; 82465; 82550; 82962; 83036; 83735; 84100; 84443; 84484; 85025; 85027; 85379; 85610; 85730; 93005; 93010; 93306-TC; 96360; 96372; 99285-25; G0378; J1644; Q2036